=== PATIENT | female | born 1995 | race Caucasian/White ===

== ENCOUNTER 2020-08-16 14:03 | Emergency (ER) | payer MEDICAID, SELFPAY ==
--- NOTE | 2020-08-16 14:12 | ED_ITS ---
HPI - Chest Pain General Chief Complaint: Chest Pain Stated Complaint: Chest Pain, Covid + Time Seen by Provider: 08/16/20 14:12 Source: patient Mode of arrival: ambulatory Limitations: no limitations History of Present Illness HPI narrative: Patient has tested positive with COVID, now with cough and left sided chest pain complaint: chest pain Onset (ago): day(s) Prior episodes: No Onset: during rest Pain location: left chest Pain radiation: none Severity: mild Related Data On Oral Contraceptives: No Allergies Allergy/AdvReac Type Severity Reaction Status Date / Time Iodinated Contrast Media Allergy Unknown HIVES Unverified 07/01/20 17:54 [IV DYE, IODINE CONTAINING CONTRAST ] IV dye Allergy Unknown Uncoded 10/28/19 00:00 Review of Systems Constitutional: Constitutional: Reports no additional constitutional co mplaints Eyes: Eyes: Reports no additional eye complaints ENT: Denies dizziness Cardiovascular: Cardiovascular: Reports no additional cardiovascular complaints Respiratory: Respiratory: Reports as per HPI Gastrointestinal: Gastrointestinal: Reports no additional gastrointestinal complaints Genitourinary: Genitourinary: Reports no additional female genitourinary complaints Musculoskeletal: Musculoskeletal: Reports no additional musculoskeletal complaints Integumentary/Breasts: Skin/Breast: Denies rash Neurologic: Reports system reviewed and no additional complaints, except as documented, Denies dizziness and Denies Sensory deficit (Neuro) Psychiatric: Psychiatric: Denies anxiety [facility] Social History Social History Advance Directives: No Advance Directives Information Provided: Yes Physical Exam Const: General: healthy appearing Nutritional Appearance: average body habitus Orientation/consciousness: oriented to person and patient oriented x3 Limitations: no limitations HENMT: Head: Yes normal to inspection Ears: external ears normal General nose exam: Normal external nose present Mouth: Normal oral and palatal mucosa present and oropharynx normal Throat: Yes posterior oropharynx normal Eyes: General: appearance normal, both eyes and all related structures Neck: Other: supple Neck: Yes normal visual inspection Chest: Chest palpation & inspection: normal inspection of the chest Resp: Auscultation: clear to auscultation bilaterally Cardio: Jugular venous distension: no JVD Rate: regular rate Rhythm: regular rhythm Heart sounds: S1 normal heart sound present and S2 normal heart sound present GI: Inspection: Yes normal to inspection Palpation (GI): Soft to palpation, nontender and No hepatosplenomegaly present Auscultation: normal bowel sounds : General: Yes no CVA tenderness Back/Spine/Pelvis: Back: no CVA tenderness Skin: General skin exam: no rashes or lesions noted Neuro: General: oriented to person and patient oriented x3 Cranial nerves: Yes CN's II-XII intact bilaterally Motor exam (neuro): 5/5 motor strength present throughout Sensory Exam: No Sensory deficit (Neuro) Extrem: General: Yes normal to inspection Psych: Appearance: grossly normal Course Course Course Narrative: oxygen and vitals are prefect will check xray and EKG MDM - Chest Pain MDM Narrative Medical decision making narrative: Patient with Covid, EKG and xray are normal will dc home ECG Data ECG #1: Attestation: I personally reviewed and interpreted this ECG as follows: Interpretation: sinus 71, no st or twave changes Discharge Plan Discharge Clinical Impression: 2019 novel coronavirus disease (COVID-19) Patient Disposition: Home, Self-Care Instructions: COVID-19 (Coronavirus Disease 2019) (ED) Additional Instructions: return for worsening symptoms Referrals: Name,MD Omar [Primary Care Provider] - 2 days
--- NOTE | 2020-08-16 14:27 | ECG_ITS ---
Test Reason : CHEST PAIN Blood Pressure : / mmHG Vent. Rate : 071 BPM Atrial Rate : 071 BPM P-R Int : 148 ms QRS Dur : 076 ms QT Int : 388 ms P-R-T Axes : 031 006 023 degrees QTc Int : 421 ms Normal sinus rhythm Normal ECG No previous ECGs available Referred By: Mihir Arevalo Electronically Signed By:DOTTIE BILLINGSLEY MD
--- NOTE | 2020-08-16 14:28 | XR_ITS ---
EXAMINATION: XR CHEST CLINICAL INFORMATION: Cough. Covid positive. Chest pain. COMPARISON: Previous chest x-ray December 2017 TECHNIQUE: Frontal view of the chest was obtained. FINDINGS: No significant abnormality is noted involving the heart, lungs, mediastinum, bony thorax or soft tissues. XR/XR chest 1V IMPRESSION: Unremarkable examination.
--- NOTE | 2020-08-16 15:29 | PC.NURSE ---
patient seen and evaluated by provider. no distress. discharged post ekg and cxr. as per provider everthing looks good
== END 2020-08-16 15:29 | disposition home or self-care (01) ==
PROVIDERS: Emergency Provider Emergency Medicine; PCP Internal Medicine Geriatric Medicine
DX: U07.1 COVID-19 (principal); R05 Cough; R07.9 Chest pain, unspecified; Z20.828 Contact with and (suspected) exposure to other viral communicable diseases
CPT/HCPCS: 71045; 93005; 99282; 99283

== ENCOUNTER 2020-09-11 13:49 | Emergency (ER) | payer MEDICAID, SELFPAY ==
[2020-09-11 15:21] VITALS: BP 94/44; PULSE 79; RESP 18; TEMP 37.1; O2SAT 18; BMI 36.3
--- NOTE | 2020-09-11 15:50 | ED_ITS ---
HPI - General Adult General Chief complaint: Skin/Abscess/Foreign Body Stated complaint: CHEST DISCOMFORT Time Seen by Provider: 09/11/20 15:43 Source: patient Mode of arrival: ambulatory Limitations: no limitations History of Present Illness HPI narrative: 25 y/o female with history of anemia presenting with breast discomfort for the last one month. She describes it as chest pain that is burning and itchy. She states it is worse on the left side and around her nipples. She has been unable to get in with her PCP. She has a control implant in her arm so she has not gotten her menses in 6 months. She denies change of . She denies trauma. She denies SOB, difficulty breathing, rash, nipple discharge. MD complaint: breast pain Onset (ago): month(s) (1) Location: chest Radiation: back Severity: moderate Quality: burning Pain Consistency: constant Relieving factors: none Exacerbating factors: none Associated symptoms: denies other symptoms Treatments prior to arrival: none Related Data Previous Rx's Medication Instructions Recorded hydrocortisone 1 appl TOPICAL QID PRN #30 g 09/11/20 Allergies Allergy/AdvReac Type Severity Reaction Status Date / Time Iodinated Contrast Media Allergy Unknown HIVES Verified 09/11/20 15:20 [IV DYE, IODINE CONTAINING CONTRAST ] Review of Systems Review of Systems: Constitutional: No Fever, No Chills ENT/Mouth: No sore throat, No Rhinorrhea Eyes: No Eye Pain, No Swelling, No Redness Cardiovascular: + Chest Pain, No SOB Respiratory: No Cough, No Sputum, No Wheezing, No dyspnea Gastrointestinal: No Nausea, No Vomiting, No Diarrhea, No abdominal Pain Genitourinary: No Dysuria, No Urinary Frequency, No vaginal discharge Musculoskeletal: No joint pain, No Myalgias Skin: No Skin Lesions, No rash Neuro:No Headache Heme/Lymph: No Bruising, No Lymphadenopathy Endocrine: No Polyuria, No Polydipsia PMFSH Past Medical History Attestation statement: The following information was validated with the patient. Medical History Anemia Social History Social History Smoking Status: Never smoker Use of substances other than those prescribed or required for medical reasons: No Advance Directives: No Advance Directives Information Provided: Yes Physical Exam Vital Signs: Vital Signs: Last Vital Signs Temp 98.7 F 09/11/20 15:21 Pulse 79 09/11/20 15:21 Resp 18 09/11/20 15:21 BP 94/44 L 09/11/20 15:21 Pulse Ox 18 L 09/11/20 15:21 Body Mass Index 36.3 Appearance: Alert. Oriented X3. No acute distress. HEENT: normal inspection CVS: Normal heart rate and rhythm. Pulses normal. Respiratory: No respiratory distress. Breath sounds clear bilterally Chest wall: breast tenderness throughout with mild lower rib tenderness laterally. no skin changes, no palpable mass or lump, no nipple discharge, no nipple inversion Skin: Skin warm and dry. Normal skin color. Normal skin turgor. No rashes. Extremities: atraumatic, left upper extremity with palpable linear implant in upper arm Neuro: Oriented X 3. Course Course Course Narrative: 25 y/o female with breast pain - described as burning and itching. Unclear etiology. Will check a test. Reevaluation(s) Reevaluation #1: test negative. No concerning mass or skin changes appreciated on exam. Will prescribe topical steroid for itching and refer to [facility] for further evalution. Stable for d/c. Medical Decision Making Lab Data Labs: Lab Results 09/11/20 Range/Units 15:59 Urine Test NEGATIVE (NEGATIVE) Critical Care Time Critical Care Time Critical Care Time: No Discharge Plan Discharge Clinical Impression: Breast pain Patient Disposition: Home, Self-Care Instructions: Breast Self Exam for Women (ED), Itchy Skin (ED) Additional Instructions: The cause of your symptoms is unclear. You exam did not show any concerning lesions, masses or rashes. Take Tylenol and/or Motrin as needed for discomfort. You will need to follow up with [facility] for further evaluation. Try topical prescribed hydrocortisone for itching or over the counter benadryl. Avoid very hot showers. Keep the skin moisturized with a hypoallergenic lotion. Follow up with your doctor next week. Prescriptions: New hydrocortisone 2.5 % cream 1 appl topical QID PRN (Reason: itching) Qty: 30 RF: 0 Referrals: Fernando Quach MD [Physician] - 2 days (breast pain)
[2020-09-11 16:09] LABS: UPreg QC Valid YES; Urine Pregnancy NEGATIVE (NEGATIVE)
== END 2020-09-11 16:34 | disposition home or self-care (01) ==
PROVIDERS: Physician Assistant; Emergency Provider Internal Medicine; PCP Internal Medicine Geriatric Medicine
DX: N64.4 Mastodynia (principal); R07.81 Pleurodynia; Z79.899 Other long term (current) drug therapy
CPT/HCPCS: 81025; 99283; 99284

== ENCOUNTER 2020-10-18 17:15 | Emergency (ER) | payer MEDICAID, SELFPAY ==
[2020-10-18 19:28] VITALS: BP 106/59; PULSE 70; RESP 15; TEMP 37; O2SAT 100; BMI 36.6
--- NOTE | 2020-10-18 19:47 | ED_ITS ---
HPI - URI/Sore Throat General Chief Complaint: Headache Stated Complaint: Covid Symptoms Time Seen by Provider: 10/18/20 19:47 Source: patient Mode of arrival: ambulatory Limitations: no limitations History of Present Illness HPI Narrative: Bodies, rhinorrhea, chills and has been exposed to people with COVID-19. Denies any chest pain shortness of breath. MD elicited complaint: rhinorrhea and nasal congestion Onset (ago): day(s) (2 days ) Severity: mild Associated symptoms: chills, nasal congestion and diarrhea Related Data Previous Rx's Medication Instructions Recorded hydrocortisone 1 appl TOPICAL QID PRN #30 g 09/11/20 Allergies Allergy/AdvReac Type Severity Reaction Status Date / Time Iodinated Contrast Media Allergy Unknown HIVES Verified 09/11/20 15:20 [IV DYE, IODINE CONTAINING CONTRAST ] Review of Systems Review of Systems: Constitutional: No Weight loss, No Fever, + Chills, No Night Sweats, No Fatigue, No Malaise ENT/Mouth: No Hearing loss, No Ear Pain, No Sinus Pain, No Hoarseness, No sore throat, No Swallowing Difficulty Eyes: No Eye Pain, No Swelling, No Redness, No Foreign Body, No Discharge, No Vision Changes Cardiovascular: No Chest Pain, No SOB, No Dyspnea on Exertion, No Orthopnea, No Edema, No Palpitations Respiratory: No Cough, No Sputum, No Wheezing, No Smoke Exposure, No Dyspnea Gastrointestinal: No Nausea, No Vomiting, + Diarrhea, No Constipation, No abdominal Pain, No Hematochezia, No Melena Genitourinary: no irregular bleeding, No Dysuria, No Urinary Frequency, No H ematuria, No Urinary Incontinence, No Urgency, No Flank Pain Musculoskeletal: No joint pain, No Myalgias, No Joint Swelling Skin: No Skin Lesions, No rash Neuro: No Weakness, No Numbness, No Paresthesias, No Loss of Consciousness, No Dizziness, No Headache Psych: No Social Issues Heme/Lymph: No Bruising, No Bleeding,No Lymphadenopathy Endocrine: No Polyuria, No Polydipsia, No Temperature Intolerance Yes all other systems are reviewed and are negative [facility] Past Medical History Medical History Anemia Social History Social History Alcohol intake: never Smoking Status: Never smoker Use of substances other than those prescribed or required for medical reasons: No Advance Directives: No Advance Directives Information Provided: No Physical Exam Vital Signs: Vital Signs: Last Vital Signs Temp 98.6 F 10/18/20 19:28 Pulse 70 10/18/20 19:28 Resp 15 10/18/20 19:28 BP 106/59 L 10/18/20 19:28 Pulse Ox 100 10/18/20 19:28 Body Mass Index 36.6 Reviewed Const: General: cooperative and healthy appearing; No acute distress or intoxicated appearing Nutritional Appearance: average body habitus Orientation/consciousness: patient oriented x3 HENMT: Head: Yes normal to inspection Ears: hearing grossly normal bilaterally Eyes: General: appearance normal, both eyes and all related structures Visual Hubbard: normal visual hubbard by confrontation Neck: Neck: Yes normal visual inspection, No positive Brudzinski's sign, No positive Kernig's sign and No tender Thyroid: Thyroid normal Chest: Chest palpation & inspection: normal inspection of the chest Resp: Effort & Inspection: normal respiratory effort Auscultation: clear to auscultation bilaterally Cardio: Jugular venous distension: no JVD Rhythm: regular rhythm Heart sounds: S1 normal heart sound present and S2 normal heart sound present GI: Inspection: Yes normal to inspection Palpation (GI): Soft to palpation Percussion: Yes normal to percussion Auscultation: normal bowel sounds : General: Yes no CVA tenderness Back/Spine/Pelvis: Back: no CVA tenderness Skin: General skin exam: no rashes or lesions noted Neuro: General: patient oriented x3 Extrem: General: Yes normal to inspection MDM - URI/Sore Throat MDM Narrative Medical decision making narrative: Well nontoxic appearing. COVID PCR done will discharge home with clear precaution return follow-up instructions. Will quarantine for 14 days given the symptoms been 2 days and she has been exposed to someone with COVID-19. Medical Records Attestation: I reviewed the patient's medical records. Lab Data Attestation: I reviewed the patient's lab results. Discharge Plan Discharge Clinical Impression: Acute upper respiratory infection Patient Disposition: Home, Self-Care Instructions: Viral Syndrome (ED) Additional Instructions: Your symptoms that you are having are likely claim representative of COVID-19. Given your exposure we have done a COVID-19 test. Based on your symptoms and history we have sent a COVID-19. Although your RESULT IS PENDING at this time. RESULTS should return within 72 hours. At this time you will be contacted with either NEGATIVE OR POSITIVE results. -Please wait until we contact you for your results. At this time you will be okay for discharge. Please plan for self quarantine for up to 14 days. Do not expose yourself to others. Please continue to follow cold instructions and wash your hands frequently. You may take Tylenol as directed on the bottle for pain or fever. Patient seen in the emergency department and should be excused from work until negative test results AND until 72 hours without any symptoms AND at least 10 days have passed since symptoms first appeared or since last exposure to COVID- 19 positive patient CDC Guidelines for home isolation: - Stay away from others - WEAR A MASK if you are sick AND STAY HOME - Cover your mouth and nose with a tissue when you cough or sneeze. Dispose of tissues in a lined trash can and wash your hands immediately with soap and water for at least 20 seconds. If soap and water are not available, clean hands with alcohol-based hand pharmaceutical salesperson that contains at least 60% alcohol. - Clean your hands often with soap and water for at least 20 seconds - Avoid touching your eyes, nose and mouth with unwashed hands - Do not share dishes, drinking glasses, cups, eating utensils, towels, or bedding with other people in your home. After using these items, wash them thoroughly with soap and water or put in the sail maker. - Clean high-touch surfaces in your isolation area ( sick room and bathroom) every day; let a caregiver clean and disinfect high-touch surfaces in other areas of the home. Clean the area or item with soap and water or another detergent if it is dirty. Then, use a household disinfectant. - Limit contact with pets and animals: If you must care for a pet, wash your hands before and after interacting with them Prescriptions: No Action hydrocortisone 2.5 % cream 1 appl topical QID PRN (Reason: itching) Qty: 30 RF: 0 Referrals: Physician,Unknown [Primary Care Provider] - 2 weeks Stand Alone Forms: Work/School Release
== END 2020-10-18 20:27 | disposition home or self-care (01) ==
PROVIDERS: Nurse Practitioner Primary Care; Emergency Provider Emergency Medicine
DX: J06.9 Acute upper respiratory infection, unspecified (principal); Z20.828 Contact with and (suspected) exposure to other viral communicable diseases
CPT/HCPCS: 36415; 99283; 99284; U0003

== ENCOUNTER 2020-12-12 18:11 | Emergency (ER) | payer MEDICAID, SELFPAY ==
--- NOTE | ~2020-12-12 | XR_ITS ---
EXAMINATION: XR RIGHT KNEE: 2 VIEWS XR RIGHT ANKLE: 3 VIEWS CLINICAL INFORMATION: Pain COMPARISON: None TECHNIQUE: AP and lateral views of the right knee AP, oblique and lateral views of the right ankle XR/XR knee RT 2V FINDINGS / IMPRESSION: KNEE: No acute fracture or dislocation. Joint spaces and articular surfaces are maintained. No joint effusion. Soft tissues unremarkable. ANKLE: No acute fracture or dislocation. Ankle mortise is congruent. Talar dome intact. No ankle joint effusion. Mild soft tissue swelling lateral to the ankle.
--- NOTE | ~2020-12-12 | XR_ITS ---
EXAMINATION: XR RIGHT KNEE: 2 VIEWS XR RIGHT ANKLE: 3 VIEWS CLINICAL INFORMATION: Pain COMPARISON: None TECHNIQUE: AP and lateral views of the right knee AP, oblique and lateral views of the right ankle XR/XR ankle RT 2V FINDINGS / IMPRESSION: KNEE: No acute fracture or dislocation. Joint spaces and articular surfaces are maintained. No joint effusion. Soft tissues unremarkable. ANKLE: No acute fracture or dislocation. Ankle mortise is congruent. Talar dome intact. No ankle joint effusion. Mild soft tissue swelling lateral to the ankle.
[2020-12-12 18:14] VITALS: BP 112/60; PULSE 89; RESP 16; TEMP 36.4; O2SAT 99; BMI 36.6
--- NOTE | 2020-12-12 19:38 | ED_ITS ---
HPI - Extremity Injury (Lower) General Chief Complaint: Extremity Injury, Lower Stated Complaint: Knee pain Time Seen by Provider: 12/12/20 19:09 Source: patient Limitations: no limitations History of Present Illness HPI Narrative: 25-year-old female with no significant past medical history presenting to the emergency department with right lower extremity injury. Patient states she was helping her friend move furniture when she missed a step and twisted her right ankle. She states she also heard a crunch in her right knee and was concerned about that but does not have significant pain to her knee. She states she has been unable to walk due to the pain in her ankle. She denies other injuries. She states she feels like her leg is getting swollen now. She denies symptoms previous to the injury. Related Data Previous Rx's Medication Instructions Recorded hydrocortisone 1 appl TOPICAL QID PRN #30 g 09/11/20 ibuprofen 600 mg PO Q6H PRN 5 Days #20 tab 12/12/20 Allergies Allergy/AdvReac Type Severity Reaction Status Date / Time Iodinated Contrast Media Allergy Unknown HIVES Verified 09/11/20 15:20 [IV DYE, IODINE CONTAINING CONTRAST ] Review of Systems Constitutional: Constitutional: Denies fever(s) Eyes: Eyes: Reports no additional eye complaints ENT: Denies dizziness Comments: no oral injury Cardiovascular: Cardiovascular: Denies chest pain, Denies syncope and Denies dyspnea Respiratory: Respiratory: Denies dyspnea Gastrointestinal: Gastrointestinal: Denies abdominal pain Musculoskeletal: Comments: right lower extremity pain Neurologic: Denies dizziness and Denies syncope Hematologic/Lymphatic: Hematologic/Lymphatic: Denies easy bleeding PMFSH Past Medical History Medical History Anemia Social History Social History Alcohol intake: never Smoking Status: Never smoker Smoked in Last 30 Days: No Use of substances other than those prescribed or required for medical reasons: No Any prior treatment program specific to substance use: No Advance Directives: No Advance Directives Information Provided: Yes Physical Exam Vital Signs: Vital Signs: Last Vital Signs Temp 97.5 F 12/12/20 18:14 Pulse 89 12/12/20 18:14 Resp 16 12/12/20 18:14 BP 112/60 12/12/20 18:14 Pulse Ox 99 12/12/20 18:14 Body Mass Index 36.6 Const: Other: sitting upright texting on cell phone Orientation/consciousness: patient oriented x3 HENMT: Head: Yes atraumatic Eyes: Pupils: Equal, round and reactive pupils present Neck: Neck: Yes trachea midline and Yes supple Chest: Other: Atraumatic Resp: Effort & Inspection: normal respiratory effort and able to speak in complete sentences Cardio: Rate: regular rate GI: Inspection: No distended Skin: Other: Warm, dry, no lacerations or abrasions Neuro: General: patient oriented x3 Cranial nerves: Yes Equal, round and reactive pupils present Extrem: Other: Right lower extremity-positive palpable pulses, full range of motion of digits, able to dorsiflex and plantar flex however limited due to pain, swelling to the lateral malleolus, tenderness to the lateral malleolus, no calf tenderness, able to flex 90 degrees at the knee, no ecchymosis, no swelling, able to fully extend, limbs are symmetrical in size in the compartment soft, neurovascularly intact Psych: Appearance: well kempt MDM - Extremity Injury (Lower) MDM Narrative Medical decision making narrative: 25-year-old female presenting to emergency department after an injury to her right lower extremity Vital stable, nontoxic appearing, hemodynamically stable Patient had x-rays performed and triage prior to my assessment which was negative for an acute fracture of her knee or ankle. She does have some swelling to her lateral malleolus which is noted. She has palpable pulses therefore tibial injury is less likely. No concern for DVT given her limbs are symmetrical in size and patient have pain prior to the injury. Compartments are soft. She is neurovascularly intact. No lacerations or foreign bodies. Most likely due to musculoskeletal injury vs. Sprain. Will give her an air splint and crutches for her ankle. I discussed elevation and NSAIDs for her pain. She currently has a Nexplanon the is less likely, negative for Tylenol and Motrin for her pain prior to discharge. Discharge Plan Discharge Clinical Impression: Ankle sprain, Knee pain, Fall Patient Disposition: Home, Self-Care Instructions: Ankle Sprain (ED), R.I.C.E. Treatment (ED) Additional Instructions: Your seen in the emergency department after a fall. Your x-ray to your knee was normal. Your x-ray of your right ankle shows you have some swelling. Please return to the emergency department for symptoms worsen, worsening swelling, pain, difficulty walking, numbness, tingling, weakness. Elevate your leg and placed ice to your ankle to help with the swelling. Use crutches for weight- bearing as tolerated. When you are walking around please use the air splint, when you are home he may remove and elevate your leg. Periodically range your foot up and down. If your symptoms continue past 1 week we encourage you to see the orthopedist, information provided. Prescriptions: New ibuprofen 600 mg tablet 600 mg PO Q6H PRN (Reason: pain) 5 Days Qty: 20 RF: 0 No Action hydrocortisone 2.5 % cream 1 appl topical QID PRN (Reason: itching) Qty: 30 RF: 0 Referrals: Charli Bello MD [Physician] - 1 week (if symptoms do not improve )
[2020-12-12] MEDS: Acetaminophen 325 MG TABLET 650 MG PO (20:15)
[2020-12-12] MEDS: Ibuprofen 600 MG TABLET PO (20:16)
== END 2020-12-12 20:23 | disposition home or self-care (01) ==
PROVIDERS: Emergency Provider Internal Medicine
DX: S93.401A Sprain of unspecified ligament of right ankle, initial encounter (principal); M25.561 Pain in right knee; X50.1XXA Overexertion from prolonged static or awkward postures, initial encounter; Y93.01 Activity, walking, marching and hiking; Y92.9 Unspecified place or not applicable; Y99.9 Unspecified external cause status; M25.571 Pain in right ankle and joints of right foot
CPT/HCPCS: 29515; 73560; 73600; 99284

== ENCOUNTER 2021-03-16 12:01 | Emergency (ER) | payer MEDICAID, SELFPAY ==
--- NOTE | ~2021-03-16 | US_ITS ---
EXAMINATION: US OBSTETRICAL ULTRASOUND CLINICAL INFORMATION: Early . Pelvic pain. COMPARISON: None. LMP: 02/07/2021. Gestational age by maternal dates is 5 weeks 2 days. Estimated date of delivery by maternal dates is 11/14/2021. TECHNIQUE: Ultrasound of the maternal pelvis is performed using transabdominal and transvaginal transducers. Transvaginal imaging is performed due to inadequate visualization transabdominally. M-mode Doppler is also performed. FINDINGS: The uterus measures 10.5 x 4.5 x 6.0 cm. There is a tiny cystic focus in the endometrium with questionable surrounding decidual reaction, average dimension only 0.4 cm (4 weeks 6 day size). No visible embryo or yolk sac. No fluid in uterine cavity. MATERNAL ADNEXA: The right maternal ovary is not visualized. The left ovary measures 1.9 x 1.0 x 1.3 cm. No maternal adnexal mass or pelvic ascites. US/US OB pelvic and transvaginal IMPRESSION: 1. Question early intrauterine gestational sac under 5 mm. 2. No maternal adnexal mass or pelvic ascites. Right maternal ovary not visualized. 3. Recommend follow-up beta hCG and follow-up ultrasound to confirm developing intrauterine .
[2021-03-16 13:23] VITALS: BP 127/68; PULSE 77; RESP 16; TEMP 36.8; O2SAT 100; BMI 35.3
[2021-03-16 14:00] LABS: MANUAL DIFF FLAG NO
[2021-03-16 14:05] LABS: Basophils Percent Auto 0.5 % (0-2); Eosinophils Absolute Auto 0.7 X10*3/uL (0.0-0.4); Eosinophils Percent Auto 8.1 % (0-4); Hematocrit 37.9 % (37-47); Hemoglobin 12.4 g/dl (12.0-16.0); Imm Gran Abs Auto 0.02 X10*3/uL (0.00-0.03); Imm Gran Pct Auto 0.2 % (0.0-0.4); Lymphocytes Absolute Auto 3.1 X10*3/uL (1.2-4.9); Lymphocytes Percent Auto 36.3 % (20-40); Mean Corpuscular HGB Conc 32.7 g/dl (31.0-35.0); Mean Corpuscular Volume 82.4 fL (80-98); Mean Platelet Volume 11.3 fL (9.4-12.3); Monocytes Absolute Auto 0.6 X10*3/uL (0.1-1.2); Monocytes Percent Auto 7.1 % (2-11); Neutrophils Percent Auto 47.8 % (45-73); Platelet Count 243 X10*3/uL (160-400); Red Cell Distribution Width 12.6 % (11.0-16.0); White Blood Count 8.4 X10*3/uL (4.8-10.8)
[2021-03-16 14:06] LABS: Glucose Urine UA NEG (NEG); Leukocyte Esterase Urine NEG (NEG); Nitrite Urine NEG (NEG); Specific Gravity - Urine 1.015 (1.005-1.025); Urine Blood NEG (NEG); Urine Ketones NEG (NEG); Urine Protein NEG (NEG-TRACE)
[2021-03-16 14:07] LABS: Appearance Urine HAZY; Color Urine YELLOW
[2021-03-16 14:29] LABS: Anion Gap 10 (12-20); Blood Urea Nitrogen 6 mg/dL (9-16); Calcium 9.1 mg/dL (8.4-10.2); Carbon Dioxide 26 mmol/L (22-29); Chloride 104 mmol/L (96-108); Creatinine Clr Calc Pharmacy 126.5; Estimated Glomerular Filt Rate > 60; Glucose Random 75 mg/dL (60-115); Potassium 3.8 mmol/L (3.3-5.1); Sodium 136 mmol/L (135-145)
[2021-03-16 15:06] LABS: UPreg QC Valid YES; Urine Pregnancy POSITIVE (NEGATIVE)
--- NOTE | 2021-03-16 15:50 | ED_ITS ---
HPI - Abdominal Pain General Chief Complaint: Abdominal Pain Stated Complaint: abd pain Time Seen by Provider: 03/16/21 15:38 Source: patient Mode of arrival: ambulatory Limitations: no limitations History of Present Illness HPI narrative: 25 y/o female presenting with lower abdominal pain that started yesterday along with some mild nausea. She states he pain was tolerabel yesterday but increased today. Worse with walking and with movement, sharp in nature and along her entire lower abdomen. No diarrhea, fevers, vaginal discharge or vaginal bleeding. LMP 02/07 and per her Period Paul on her phone she is due for her menses on 03/20. MD elicited complaint: abdominal pain Pertinent past history: none Onset (ago): day(s) (1) Pain Consistency: constant Location: RLQ and LLQ Severity: moderate Pain scale (0-10): 6 Quality: stabbing Radiation: none Migration to: no migration Exacerbating factors: movement Relieving factors: nothing Associated symptoms: nausea Related Data Date of Last Menstrual Period: 02/07/21 Hx Last Menstrual Period: usually 3-4 days in duration and period cycles 30+ days Previous Rx's Medication Instructions Recorded hydrocortisone 1 appl TOPICAL QID PRN #30 g 09/11/20 ibuprofen 600 mg PO Q6H PRN 5 Days #20 tab 12/12/20 Allergies Allergy/AdvReac Type Severity Reaction Status Date / Time Iodinated Contrast Media Allergy Unknown HIVES Verified 03/16/21 13:28 [IV DYE, IODINE CONTAINING CONTRAST ] Review of Systems Review of Systems Constitutional: No Fever, No Chills ENT/Mouth: No sore throat, No Rhinorrhea, No Swallowing Difficulty Eyes: No Eye Pain, No Swelling, No Redness Cardiovascular: No Chest Pain, No SOB, No Orthopnea, No Edema Respiratory: No Cough, No Sputum, No Wheezing, No dyspnea Gastrointestinal: + Nausea, No Vomiting, No Diarrhea, + abdominal Pain, No Hematochezia, No Melena Genitourinary: No Dysuria, No Urinary Frequency, No Hematuria, No vaginal bleeding, No vaginal discharge Musculoskeletal: No joint pain, No Myalgias Skin: No Skin Lesions, No rash Neuro: No Weakness, No Numbness, No Dizziness, No Headache Psych: No Anxiety/Panic, No Depression Heme/Lymph: No Bruising, No Lymphadenopathy Endocrine: No Polyuria, No Polydipsia Physical Exam Vital Signs: Vital Signs: Last Vital Signs Temp 98.3 F 03/16/21 13:23 Pulse 70 03/16/21 15:52 Resp 16 03/16/21 15:52 BP 102/56 L 03/16/21 15:52 Pulse Ox 100 03/16/21 15:52 Body Mass Index 35.3 Appearance: Alert. Oriented X3. No acute distress. Eyes: Pupils equal, round and reactive to light. ENT: Pharynx normal. Neck: Normal inspection. Neck supple. CVS: Normal heart rate and rhythm. Pulses normal. Respiratory: No respiratory distress. Breath sounds normal. Abdomen: Soft with diffuse tenderness to lower abdomen with rebound, no guarding. +BS x4. Pelvic exam deferred. Skin: Skin warm and dry. Normal skin color. Normal skin turgor. No rashes. Extremities: No lower extremity edema. Neuro: Oriented X 3. No motor deficit. No sensory deficit. Course Course Course Narrative: 25 y/o female presenting wtih lower abdominal pain and nausea x1 day. Given LMP concern she is . Will get labs, Upreg. Reports history of ovarian cysts and thinks that is what is causing her pain. She deferred pelvic exam. Agreeable to U/S. Reevaluation(s) Reevaluation #1: UA negative for infection, positive for . Patient told about results and is very surprised. She continues to deny bleeding. Will get pelvic U/S to look for IUP vs possible ectopic. Reevaluation #2: Pelvic U/S showing possible tiny 5mm IUP, about 4 weeks 6 days. HCG is consistent with this with an HCG of 3493. She continues to deny any vaginal bleeding. Abdominal pain is ok. No vomiting, diarrhea or fevers. She saw midwives here for her 2 prior pregnancies and plans to follow up with them. We discussed the importance of f/u HCG and trending it. She will call [facility] [employer] here tomorrow for follow up blood work to be done on Sunday. Patient advised to come back to the ER if her pain worsens or if she develops vaginal bleeding. MDM - Abdominal Pain Lab Data Result diagrams: 03/16/21 13:44 03/16/21 13:44 Labs: Lab Results 03/16/21 03/16/21 03/16/21 Range/Units 13:44 13:44 13:44 WBC 8.4 (4.8-10.8) X10*3/uL RBC 4.60 (4.20-5.50) X10*6/uL Hgb 12.4 (12.0-16.0) g/dl Hct 37.9 (37-47) % MCV 82.4 (80-98) fL MCH 27.0 (27.0-33.0) pg MCHC 32.7 (31.0-35.0) g/dl RDW 12.6 (11.0-16.0) % Plt Count 243 (160-400) X10*3/uL MPV 11.3 (9.4-12.3) fL Immature Gran % (Auto) 0.2 (0.0-0.4) % Neut % (Auto) 47.8 (45-73) % Lymph % (Auto) 36.3 (20-40) % [place] % (Auto) 7.1 (2-11) % Eos % (Auto) 8.1 H (0-4) % Baso % (Auto) 0.5 (0-2) % Lymph # (Auto) 3.1 (1.2-4.9) X10*3/uL [place] # (Auto) 0.6 (0.1-1.2) X10*3/uL Eos # (Auto) 0.7 H (0.0-0.4) X10*3/uL Baso # (Auto) 0.0 (0.0-0.2) X10*3/uL Abs Immat Gran (auto) 0.02 (0.00-0.03) X10*3/uL Absolute Neuts (auto) 4.0 (2.0-8.3) X10*3/uL Absolute Nucleated RBC 0.000 (0.0-0.012) X10*3/uL Nucleated RBC % (auto) 0.0 (0.0-0.2) /100WBC Sodium 136 (135-145) mmol/L Potassium 3.8 (3.3-5.1) mmol/L Chloride 104 (96-108) mmol/L Carbon Dioxide 26 (22-29) mmol/L Anion Gap 10 L (12-20) BUN 6 L (9-16) mg/dL Creatinine 0.74 (0.5-1.4) mg/dL Estim Creat Clear Calc 126.5 Estimated GFR > 60 Random Glucose 75 (60-115) mg/dL Calcium 9.1 (8.4-10.2) mg/dL Beta HCG, Quant 3493 mIU/mL Urine Color YELLOW Urine Appearance HAZY Urine pH 7.0 (5.0-8.0) Ur Specific [place] 1.015 (1.005-1.025) Urine Protein NEG (NEG-TRACE) MG/DL Urine Glucose (UA) NEG (NEG) MG/DL Urine Ketones NEG (NEG) MG/DL Urine Blood NEG (NEG) Urine Nitrite NEG (NEG) Ur Leukocyte Esterase NEG (NEG) Urine Test (NEGATIVE) 03/16/21 Range/Units 13:44 WBC (4.8-10.8) X10*3/uL RBC (4.20-5.50) X10*6/uL Hgb (12.0-16.0) g/dl Hct (37-47) % MCV (80-98) fL MCH (27.0-33.0) pg MCHC (31.0-35.0) g/dl RDW (11.0-16.0) % Plt Count (160-400) X10*3/uL MPV (9.4-12.3) fL Immature Gran % (Auto) (0.0-0.4) % Neut % (Auto) (45-73) % Lymph % (Auto) (20-40) % [place] % (Auto) (2-11) % Eos % (Auto) (0-4) % Baso % (Auto) (0-2) % Lymph # (Auto) (1.2-4.9) X10*3/uL [place] # (Auto) (0.1-1.2) X10*3/uL Eos # (Auto) (0.0-0.4) X10*3/uL Baso # (Auto) (0.0-0.2) X10*3/uL Abs Immat Gran (auto) (0.00-0.03) X10*3/uL Absolute Neuts (auto) (2.0-8.3) X10*3/uL Absolute Nucleated RBC (0.0-0.012) X10*3/uL Nucleated RBC % (auto) (0.0-0.2) /100WBC Sodium (135-145) mmol/L Potassium (3.3-5.1) mmol/L Chloride (96-108) mmol/L Carbon Dioxide (22-29) mmol/L Anion Gap (12-20) BUN (9-16) mg/dL Creatinine (0.5-1.4) mg/dL Estim Creat Clear Calc Estimated GFR Random Glucose (60-115) mg/dL Calcium (8.4-10.2) mg/dL Beta HCG, Quant mIU/mL Urine Color Urine Appearance Urine pH (5.0-8.0) Ur Specific [place] (1.005-1.025) Urine Protein (NEG-TRACE) MG/DL Urine Glucose (UA) (NEG) MG/DL Urine Ketones (NEG) MG/DL Urine Blood (NEG) Urine Nitrite (NEG) Ur Leukocyte Esterase (NEG) Urine Test POSITIVE H (NEGATIVE) Discharge Plan Discharge Clinical Impression: Qualifiers: Weeks of gestation: less than 8 weeks Qualified Code(s): Z3A.01 - Less than 8 weeks gestation of Patient Disposition: Home, Self-Care Instructions: (ED) Additional Instructions: Your blood and urine tests showed you are . Ultrasound showed a possible tiny gestational sac in the uterus but it is very early in the to be positive. You need to follow up with your [facility] [employer] [facility] here for repeat lab work and ultrasound. Start taking vitamins. If you develop worsening pain or vaginal bleeding come back to the ER for further evaluation. Prescriptions: No Action hydrocortisone 2.5 % cream 1 appl topical QID PRN (Reason: itching) Qty: 30 RF: 0 ibuprofen 600 mg tablet 600 mg PO Q6H PRN (Reason: pain) 5 Days Qty: 20 RF: 0 Referrals: Gissell Brady MD [Physician] - 2 days (lower abdominal pain, HCG 3400, ?IUP on U/S. no bleeding. ) [facility] Past Medical History Medical History Anemia Date of Last Menstrual Period: 02/07/21 Hx Last Menstrual Period: usually 3-4 days in duration and period cycles 30+ days Social History Social History Alcohol intake: never Patient Tobacco Use Status: Never used Tobacco Use of substances other than those prescribed or required for medical reasons: No Advance Directives: Yes Advance Directives Information Provided: Yes Advance Directives on File: No Patient : No
[2021-03-16 15:52] VITALS: BP 102/56; PULSE 70; RESP 16; O2SAT 100
[2021-03-16 16:12] LABS: HCG Quantitative 3493 mIU/mL
== END 2021-03-16 17:34 | disposition home or self-care (01) ==
PROVIDERS: Physician Assistant; Emergency Provider Emergency Medicine
DX: R10.30 Lower abdominal pain, unspecified (principal); R11.0 Nausea; Z32.01 Encounter for pregnancy test, result positive
CPT/HCPCS: 36415; 76801; 76817; 80048; 81003; 81025; 84702; 85025; 86850; 86900; 86901; 99284

== ENCOUNTER → 2021-03-18 13:26 | Outpatient (BNVA) | payer MEDICAID, SELFPAY | PROVIDERS: Visit Provider Advanced Practice Midwife | DX: Z32.01 Encounter for pregnancy test, result positive (principal) | CPT/HCPCS: 99212 ==

== ENCOUNTER 2021-03-25 16:43 | Emergency (ER) | payer MEDICAID, SELFPAY ==
[2021-03-25 18:02] VITALS: BP 101/63; PULSE 71; RESP 18; TEMP 37.1; O2SAT 96; BMI 34.8
[2021-03-25 18:47] LABS: MANUAL DIFF FLAG NO
[2021-03-25 18:48] LABS: Basophils Percent Auto 0.4 % (0-2); Eosinophils Absolute Auto 0.3 X10*3/uL (0.0-0.4); Eosinophils Percent Auto 3.2 % (0-4); Hematocrit 40.3 % (37-47); Hemoglobin 13.1 g/dl (12.0-16.0); Imm Gran Abs Auto 0.01 X10*3/uL (0.00-0.03); Imm Gran Pct Auto 0.1 % (0.0-0.4); Lymphocytes Absolute Auto 2.8 X10*3/uL (1.2-4.9); Lymphocytes Percent Auto 33.1 % (20-40); Mean Corpuscular HGB Conc 32.5 g/dl (31.0-35.0); Mean Corpuscular Hemoglobin 26.7 pg (27.0-33.0); Mean Corpuscular Volume 82.2 fL (80-98); Mean Platelet Volume 11.3 fL (9.4-12.3); Monocytes Absolute Auto 0.4 X10*3/uL (0.1-1.2); Monocytes Percent Auto 5.1 % (2-11); Neutrophils Percent Auto 58.1 % (45-73); Platelet Count 223 X10*3/uL (160-400); Red Cell Distribution Width 12.7 % (11.0-16.0); White Blood Count 8.6 X10*3/uL (4.8-10.8)
[2021-03-25 18:50] LABS: UPreg QC Valid YES; Urine Pregnancy POSITIVE (NEGATIVE)
[2021-03-25 19:11] LABS: Anion Gap 11 (12-20); Blood Urea Nitrogen 9 mg/dL (9-16); Calcium 9.1 mg/dL (8.4-10.2); Carbon Dioxide 24 mmol/L (22-29); Chloride 104 mmol/L (96-108); Creatinine Clr Calc Pharmacy 120.6; Estimated Glomerular Filt Rate > 60; Glucose Random 85 mg/dL (60-115); Potassium 3.8 mmol/L (3.3-5.1); Sodium 135 mmol/L (135-145)
[2021-03-25 19:54] VITALS: BP 101/63; PULSE 71; RESP 18; TEMP 37.1; O2SAT 96
[2021-03-25 20:00] VITALS: BP 101/63; PULSE 71; RESP 18; TEMP 37.1; O2SAT 96
[2021-03-25 20:16] LABS: Glucose Urine UA NEG (NEG); Leukocyte Esterase Urine NEG (NEG); Nitrite Urine NEG (NEG); Specific Gravity - Urine >= 1.030 (1.005-1.025); Urine Blood NEG (NEG); Urine Ketones 15 MG/DL (NEG); Urine Protein NEG (NEG-TRACE)
[2021-03-25 20:17] LABS: Appearance Urine HAZY; Color Urine YELLOW
[2021-03-25 20:26] LABS: Alanine Aminotransferase 30 U/L (0-31); Albumin Level 4.2 g/dL (3.5-5.0); Alkaline Phosphatase 90 U/L (39-117); Aspartate Amino Transferase 23 U/L (5-31); Bilirubin Direct < 0.2 mg/dL (0.0-0.5); Bilirubin Total 0.3 mg/dL (0.0-1.0); Total Protein 7.1 g/dL (6.5-8.0)
--- NOTE | 2021-03-25 20:36 | ED.GENADULT ---
HPI - General Adult General Chief complaint: General Medical Stated complaint: low abd pain (6 weeks ) Time Seen by Provider: 03/25/21 20:05 Source: patient and family Mode of arrival: ambulatory Limitations: no limitations History of Present Illness HPI narrative: 25-year-old female currently 6 weeks /7 YOHAN 10/2021 here with complaints of abdominal cramping. The patient tells me that she has had abdominal cramping throughout her . This prompted the ER visit on March 16 in which she had labs and an ultrasound which showed a small possible intrauterine . She followed up 2 days later in the office with the service advisor who confirmed possible small IUP of 4 weeks 6/7 days. Patient tells me she has continued to have cramping which is waxing and waning. Normally she drinks fluids and the cramping seems to improve however today the cramping has not improved despite drinking fluids. She she has had some nausea with decreased p.o. intake. No vomiting. No vaginal bleeding, urinary symptoms, vaginal discharge. She does feel lightheaded when she changes positions. Related Data Home Medications Medication Instructions Recorded Confirmed prenat.vits,[place],[id number]-[id number] 1 tab PO DAILY 03/18/21 03/18/21 Previous Rx's Medication Instructions Recorded ibuprofen 600 mg PO Q6H PRN 5 Days #20 tab 12/12/20 pyridoxine (vitamin B6) 25 mg PO QID PRN #10 tab MDD 200mg 03/25/21 Allergies Allergy/AdvReac Type Severity Reaction Status Date / Time Iodinated Contrast Media Allergy Unknown HIVES Verified 03/25/21 18:02 [IV DYE, IODINE CONTAINING CONTRAST ] Review of Systems Review of Systems: Yes all other systems are reviewed and are negative Constitutional: Constitutional: Reports no additional constitutional complaints, Denies body ache(s), Denies chills, Denies fever(s), Denies headache(s) and Denies weakness Eyes: Eyes: Reports no additional eye complaints and Denies change in vision ENT: Reports system reviewed and no additional complaints, except as documented, Reports dizziness (Lightheadedness), Denies headache(s), Denies nasal congestion, Denies nasal discharge and Denies neck pain Cardiovascular: Cardiovascular: Reports no additional cardiovascular complaints, Denies chest pain, Denies leg edema and Denies dyspnea Respiratory: Respiratory: Reports no additional respiratory complaints, Denies cough and Denies dyspnea Gastrointestinal: Gastrointestinal: Reports no additional gastrointestinal complaints, Reports abdominal pain (Abdominal cramping), Denies diarrhea, Reports nausea and Denies vomiting Genitourinary: Genitourinary: Reports no additional female genitourinary complaints and Denies urinary incontinence Musculoskeletal: Musculoskeletal: Reports no additional musculoskeletal complaints, Denies back pain, Denies arthralgias, Denies joint swelling, Denies neck pain, Denies numbness and Denies tingling Integumentary/Breasts: Skin/Breast: Reports system reviewed and no additional complaints, except as docu and Denies rash Neurologic: Reports system reviewed and no additional complaints, except as documented, Denies Abnormal speech present, Reports dizziness (Lightheadedness), Denies headache(s), Denies numbness, Denies tingling and Denies weakness PMFSH Past Medical History Attestation statement: The following information was validated with the patient. Source: old records reviewed and nursing notes reviewed Medical History Anemia Social History Social History Alcohol intake: never Patient Tobacco Use Status: Never used Tobacco Use of substances other than those prescribed or required for medical reasons: No Advance Directives: No Advance Directives Information Provided: Yes Patient : Yes Physical Exam Vital Signs: Vital Signs: Last Vital Signs Temp 98.7 F 03/25/21 20:00 Pulse 71 03/25/21 20:00 Resp 18 03/25/21 20:00 BP 101/63 03/25/21 20:00 Pulse Ox 96 03/25/21 20:00 Body Mass Index 34.8 Const: General: cooperative, healthy appearing, comfortable and no acute distress Orientation/consciousness: patient oriented x3 Limitations: no limitations HENMT: Head: Yes normal to inspection Ears: hearing grossly normal bilaterally General nose exam: Normal external nose present Face and sinus: Yes normal facial exam Mouth: Normal oral and palatal mucosa present Throat: Yes posterior oropharynx normal Eyes: General: appearance normal, both eyes and all related structures Pupils: Equal, round and reactive pupils present Neck: Neck: Yes normal visual inspection Chest: Chest palpation & inspection: normal inspection of the chest Resp: Effort & Inspection: normal respiratory effort Auscultation: clear to auscultation bilaterally Cardio: Rate: regular rate Rhythm: regular rhythm Peripheral pulses: Peripheral pulses 2+ throughout GI: Inspection: Yes normal to inspection Palpation (GI): Soft to palpation and Tenderness to palpation present (GI) (Mild lower suprapubic discomfort. no rebound or guarding ) Auscultation: normal bowel sounds : External Female Exam: normal external appearance Speculum Exam - Vagina: normal appearance of the vagina, normal palpation and normal vaginal discharge Speculum Exam - Cervix: normal appearance of the cervix Bimanual exam- vagina & uterus: normal bimanual exam and normal palpation Bimanual Exam- Adnexa, other: normal adnexae and No adnexal tenderness Back/Spine/Pelvis: Thoracic/Lumbar Spine: thoracic and lumbar spine normal to inspection Skin: General skin exam: no rashes or lesions noted Neuro: General: patient oriented x3, no focal motor deficits and normal sensation to monofilament Cranial nerves: Yes Equal, round and reactive pupils present, Yes Bilaterally intact EOM present, Yes Normal facial strength present and Yes Midline tongue present Cognition (Neuro): normal cognition Speech: No Abnormal speech present Gait exam (Neuro): Normal gait present Motor exam (neuro): 5/5 motor strength present throughout Sensory Exam: Normal double simultaneous stimulation for sensation Coordination: [id number] test normal and [id number] test normal Extrem: General: Yes normal to inspection, Yes no pedal edema and Yes no calf tenderness Course Course Course Narrative: 25-year-old female here with complaints of abdominal cramping which is lower which she has had intermittent throughout her . Normally she can drink fluids and the cramping improved but today did not seem to improve. She does tell me that she has had decreased p.o. intake due to nausea. No vomiting. She also feels lightheaded at times of position changes. She denies any vaginal bleeding. Exam has some mild tenderness. Pelvic exam is benign. Will send UA, labs, CT NG, BV testing. 2022-greater than 15 [address] urine[address] Will place IV and give normal saline bolus and oral antiemetic, follow labs. 2099-Sign out to Dr Flores pending above. Medical Decision Making MDM Narrative Medical decision making narrative: Likely threatened miscarriage with no vaginal bleeding and what appears to be intermittent more chronic pain throughout her entire Consider dehydration, UTI, vaginal infection. Medical Records Medical records reviewed: Yes I reviewed the patient's medical records. Lab Data Lab results reviewed: Yes I reviewed the patient's lab results. Result diagrams: 03/25/21 18:38 03/25/21 18:38 Labs: Lab Results 03/25/21 03/25/21 03/25/21 Range/Units 18:35 18:35 18:38 WBC 8.6 (4.8-10.8) X10*3/uL RBC 4.90 (4.20-5.50) X10*6/uL Hgb 13.1 (12.0-16.0) g/dl Hct 40.3 (37-47) % MCV 82.2 (80-98) fL MCH 26.7 L (27.0-33.0) pg MCHC 32.5 (31.0-35.0) g/dl RDW 12.7 (11.0-16.0) % Plt Count 223 (160-400) X10*3/uL MPV 11.3 (9.4-12.3) fL Immature Gran % (Auto) 0.1 (0.0-0.4) % Neut % (Auto) 58.1 (45-73) % Lymph % (Auto) 33.1 (20-40) % [place] % (Auto) 5.1 (2-11) % Eos % (Auto) 3.2 (0-4) % Baso % (Auto) 0.4 (0-2) % Lymph # (Auto) 2.8 (1.2-4.9) X10*3/uL [place] # (Auto) 0.4 (0.1-1.2) X10*3/uL Eos # (Auto) 0.3 (0.0-0.4) X10*3/uL Baso # (Auto) 0.0 (0.0-0.2) X10*3/uL Abs Immat Gran (auto) 0.01 (0.00-0.03) X10*3/uL Absolute Neuts (auto) 5.0 (2.0-8.3) X10*3/uL Absolute Nucleated RBC 0.000 (0.0-0.012) X10*3/uL Nucleated RBC % (auto) 0.0 (0.0-0.2) /100WBC Sodium (135-145) mmol/L Potassium (3.3-5.1) mmol/L Chloride (96-108) mmol/L Carbon Dioxide (22-29) mmol/L Anion Gap (12-20) BUN (9-16) mg/dL Creatinine (0.5-1.4) mg/dL Estim Creat Clear Calc Estimated GFR Random Glucose (60-115) mg/dL Calcium (8.4-10.2) mg/dL Total Bilirubin (0.0-1.0) mg/dL Direct Bilirubin (0.0-0.5) mg/dL AST (5-31) U/L ALT (0-31) U/L Alkaline Phosphatase (39-117) U/L Total Protein (6.5-8.0) g/dL Albumin (3.5-5.0) g/dL Beta HCG, Quant mIU/mL Urine Color YELLOW Urine Appearance HAZY Urine pH 6.0 (5.0-8.0) Ur Specific [place] >= 1.030 H (1.005-1.025) Urine Protein NEG (NEG-TRACE) MG/DL Urine Glucose (UA) NEG (NEG) MG/DL Urine Ketones 15 (NEG) MG/DL Urine Blood NEG (NEG) Urine Nitrite NEG (NEG) Ur Leukocyte Esterase NEG (NEG) Urine Test POSITIVE H (NEGATIVE) 03/25/21 Range/Units 18:38 WBC (4.8-10.8) X10*3/uL RBC (4.20-5.50) X10*6/uL Hgb (12.0-16.0) g/dl Hct (37-47) % MCV (80-98) fL MCH (27.0-33.0) pg MCHC (31.0-35.0) g/dl RDW (11.0-16.0) % Plt Count (160-400) X10*3/uL MPV (9.4-12.3) fL Immature Gran % (Auto) (0.0-0.4) % Neut % (Auto) (45-73) % Lymph % (Auto) (20-40) % [place] % (Auto) (2-11) % Eos % (Auto) (0-4) % Baso % (Auto) (0-2) % Lymph # (Auto) (1.2-4.9) X10*3/uL [place] # (Auto) (0.1-1.2) X10*3/uL Eos # (Auto) (0.0-0.4) X10*3/uL Baso # (Auto) (0.0-0.2) X10*3/uL Abs Immat Gran (auto) (0.00-0.03) X10*3/uL Absolute Neuts (auto) (2.0-8.3) X10*3/uL Absolute Nucleated RBC (0.0-0.012) X10*3/uL Nucleated RBC % (auto) (0.0-0.2) /100WBC Sodium 135 (135-145) mmol/L Potassium 3.8 (3.3-5.1) mmol/L Chloride 104 (96-108) mmol/L Carbon Dioxide 24 (22-29) mmol/L Anion Gap 11 L (12-20) BUN 9 (9-16) mg/dL Creatinine 0.77 (0.5-1.4) mg/dL Estim Creat Clear Calc 120.6 Estimated GFR > 60 Random Glucose 85 (60-115) mg/dL Calcium 9.1 (8.4-10.2) mg/dL Total Bilirubin 0.3 (0.0-1.0) mg/dL Direct Bilirubin < 0.2 (0.0-0.5) mg/dL AST 23 (5-31) U/L ALT 30 (0-31) U/L Alkaline Phosphatase 90 (39-117) U/L Total Protein 7.1 (6.5-8.0) g/dL Albumin 4.2 (3.5-5.0) g/dL Beta HCG, Quant 60155 mIU/mL Urine Color Urine Appearance Urine pH (5.0-8.0) Ur Specific [place] (1.005-1.025) Urine Protein (NEG-TRACE) MG/DL Urine Glucose (UA) (NEG) MG/DL Urine Ketones (NEG) MG/DL Urine Blood (NEG) Urine Nitrite (NEG) Ur Leukocyte Esterase (NEG) Urine Test (NEGATIVE) Discharge Plan Discharge Clinical Impression: Patient Disposition: Home, Self-Care Instructions: First Trimester (ED) Additional Instructions: Increase fluids, rest Keep saltine crackers by your bedside before rising in the morning eat 1-2 Follow-up with OB Prescriptions: New pyridoxine (vitamin B6) 25 mg tablet 25 mg PO QID MDD 200mg PRN (Reason: nausea and vomiting) Qty: 10 RF: 0 No Action ibuprofen 600 mg tablet 600 mg PO Q6H PRN (Reason: pain) 5 Days Qty: 20 RF: 0 prenat.vits,[place],[id number]-[id number] Tablet 1 tab PO DAILY RF: 0 Referrals: Gissell Brady MD [Physician] - 2 days
[2021-03-25] MEDS: 0.9 % Sodium Chloride 1,000 ML 999 ML IV (20:52)
[2021-03-25 21:01] LABS: HCG Quantitative 34468 mIU/mL
[2021-03-25 22:50] VITALS: BP 103/43; PULSE 72; RESP 16; TEMP 37.2; O2SAT 98
[2021-03-25] MEDS: ondansetron HCL 4 MG/2 ML VIAL IVPUSH (23:04)
--- NOTE | 2021-03-25 23:05 | PC.NURSE ---
Pyridoxine not given as of yet as not available in ED pyxis and supervisor pyrotechnic loading needs to bring down from ICU
[2021-03-26] VITALS: RESP 14
[2021-03-26] MEDS: Pyridoxine HCl (Vitamin B6) 50 MG TABLET 25 MG PO (01:28)
[2021-03-26 04:50] LABS: CT PCR NOT DETECTED (Not Detect.); NG PCR NOT DETECTED (Not Detect.)
[2021-03-26 12:55] LABS: BV Int Neg Control Negative (Negative); BV Int Pos Control Positive (Positive)
== END 2021-03-26 01:30 | disposition home or self-care (01) ==
PROVIDERS: Nurse Practitioner Family; Emergency Provider Emergency Medicine Emergency Medical Services; PCP Nurse Practitioner Primary Care
DX: O23.591 Infection of other part of genital tract in pregnancy, first trimester (principal); B96.89 Other specified bacterial agents as the cause of diseases classified elsewhere; Z3A.01 Less than 8 weeks gestation of pregnancy
CPT/HCPCS: 36415; 80048; 80076; 81003; 81025; 84702; 85025; 87480; 87491; 87510; 87591; 87660; 96361; 96374; 99284; J2405

== ENCOUNTER 2021-04-03 08:51 | Emergency (ER) | payer MEDICAID, SELFPAY ==
[2021-04-03 09:20] VITALS: BP 106/61; PULSE 64; RESP 16; TEMP 36.9; O2SAT 99
--- NOTE | 2021-04-03 09:30 | ED_ITS ---
HPI - Nausea/Vomiting/Diarrhea General Chief complaint: Nausea/Vomiting/Diarrhea Stated complaint: vomitting blood 8 weeks Time Seen by Provider: 04/03/21 08:53 Source: patient Mode of arrival: ambulatory Limitations: no limitations History of Present Illness HPI Narrative: 25 yo female D = LMP 8 weeks threw up her entire last this time c/o nausea and vomiting, no vag complaints but notes that she has been throwing up so hard she has seen some streaks of blood no other GIB complaints MD elicited complaint: nausea, vomiting and diarrhea Pertinent past history: other (hyperemesis) Onset (ago): day(s) Description of vomiting: food contents Location of pain: none Severity: moderate Exacerbating factors: eating Relieving factors: none Context: other (hx of hyperemesis in prior pregnancies) Associated symptoms: loss of appetite, malaise and nausea/vomiting Related Data Home Medications Medication Instructions Recorded Confirmed prenat.vits,quinton,[id number] 1 tab PO DAILY 03/18/21 03/18/21 Previous Rx's Medication Instructions Recorded ibuprofen 600 mg PO Q6H PRN 5 Days #20 tab 12/12/20 pyridoxine (vitamin B6) 25 mg PO QID PRN #10 tab MDD 200mg 03/25/21 metronidazole [Flagyl] 500 mg PO BID 7 Days #14 tab 03/28/21 metoclopramide HCl [Reglan] 10 mg PO Q6H PRN #30 tab 04/03/21 nitrofurantoin monohyd/m-cryst 100 mg PO BID 5 Days #10 cap 04/03/21 [Macrobid] promethazine 25 mg MN Q6H PRN #12 ea 04/03/21 Allergies Allergy/AdvReac Type Severity Reaction Status Date / Time Iodinated Contrast Media Allergy Unknown HIVES Verified 03/25/21 18:02 [IV DYE, IODINE CONTAINING CONTRAST ] Review of Systems Review of Systems: Constitutional : No Weight loss, No Fever, pos Chills ENT/Mouth : No sore throat, No Rhinorrhea Eyes: No Swelling, No Redness Cardiovascular : No Chest Pain, No SOB, NoEdema Respiratory : No Cough, No Sputum, No Wheezing Gastrointestinal : Positive Nausea, Positive Vomiting, no Diarrhea, no abdominal Pain, No Hematochezia, No Melena Genitourinary : No Dysuria, No Urinary Frequency, No Hematuria, No Urgency Musculoskeletal : No joint pain, No Myalgias, No Joint Swelling Skin : No Skin Lesions, No rash Neuro : pos Weakness, No Numbness, No Dizziness, No Headache Psych : No Anxiety/Panic, No Depression Heme/Lymph: No Bruising, No Lymphadenopathy Endocrine : No Polyuria, No Polydipsia All other systems reviewed and are negative. [facility] Past Medical History Attestation statement: The following information was validated with the patient. Medical History Anemia Hyperemesis Social History Social History Alcohol intake: never Patient Tobacco Use Status: Never used Tobacco Use of substances other than those prescribed or required for medical reasons: No Advance Directives: Yes Advance Directives Information Provided: Yes Advance Directives on File: No Patient : Yes Physical Exam Vital Signs: Vital Signs: Last Vital Signs Temp 98.8 F 04/03/21 09:37 Pulse 65 04/03/21 09:37 Resp 16 04/03/21 09:20 BP 105/57 L 04/03/21 09:37 Pulse Ox 100 04/03/21 09:37 Body Mass Index 33.6 Appearance: Alert. Oriented X3. No acute distress. Eyes: Pupils equal, round and reactive to light. ENT: Pharynx moderate dry MM Neck: Normal inspection. Neck supple. CVS: Normal heart rate and rhythm. Pulses normal. Respiratory: No respiratory distress. Breath sounds normal. Abdomen: Soft and non-tender. Skin: Skin warm and dry. Normal skin color. Normal skin turgor. Extremities: No lower extremity edema. No calf ttp Neuro: Oriented X 3. No motor deficit. No sensory deficit. Course Course Course Narrative: patient can tolerate PO now, labs stable, given bags of fluids, will need Rx to go home with given rocephin for UTI will DC on macrobid for 4 more days MDM - Nausea/Vomiting/Diarrhea MDM Narrative Medical decision making narrative: 25 yo female D = LMP 8 weeks threw up her entire last this time c/o nausea and vomiting, no vag complaints but notes that she has been throwing up so hard she has seen some streaks of blood no other GIB complaints at this time suspect streaked blood due to forceful emesis, doubt GIB, hx of same in past with vomiting in prior pregnancies, at this time will need labs, IVF x 2L, IV reglan/benadryl, pepcid, no abdominal pain or bleeding appropriate rise in quant doubt ectopic, dispo per results and ability to tolerate PO Lab Data Result diagrams: 04/03/21 10:19 04/03/21 10:19 Labs: Lab Results 04/03/21 04/03/21 04/03/21 Range/Units 10:19 10:19 10:39 WBC 7.4 (4.8-10.8) X10*3/uL RBC 4.77 (4.20-5.50) X10*6/uL Hgb 12.9 (12.0-16.0) g/dl Hct 38.6 (37-47) % MCV 80.9 (80-98) fL MCH 27.0 (27.0-33.0) pg MCHC 33.4 (31.0-35.0) g/dl RDW 12.1 (11.0-16.0) % Plt Count 240 (160-400) X10*3/uL MPV 10.7 (9.4-12.3) fL Immature Gran % (Auto) 0.1 (0.0-0.4) % Neut % (Auto) 63.4 (45-73) % Lymph % (Auto) 30.1 (20-40) % [place] % (Auto) 4.2 (2-11) % Eos % (Auto) 1.9 (0-4) % Baso % (Auto) 0.3 (0-2) % Lymph # (Auto) 2.2 (1.2-4.9) X10*3/uL [place] # (Auto) 0.3 (0.1-1.2) X10*3/uL Eos # (Auto) 0.1 (0.0-0.4) X10*3/uL Baso # (Auto) 0.0 (0.0-0.2) X10*3/uL Abs Immat Gran (auto) 0.01 (0.00-0.03) X10*3/uL Absolute Neuts (auto) 4.7 (2.0-8.3) X10*3/uL Absolute Nucleated RBC 0.000 (0.0-0.012) X10*3/uL Nucleated RBC % (auto) 0.0 (0.0-0.2) /100WBC Sodium 136 (135-145) mmol/L Potassium 4.1 (3.3-5.1) mmol/L Chloride 105 (96-108) mmol/L Carbon Dioxide 21 L (22-29) mmol/L Anion Gap 14 (12-20) BUN 7 L (9-16) mg/dL Creatinine 0.76 (0.5-1.4) mg/dL Estim Creat Clear Calc 120.0 Estimated GFR > 60 Random Glucose 87 (60-115) mg/dL Calcium 9.4 (8.4-10.2) mg/dL Magnesium 2.0 (1.6-2.6) mg/dL Total Bilirubin 0.5 (0.0-1.0) mg/dL Direct Bilirubin 0.2 (0.0-0.5) mg/dL AST 21 (5-31) U/L ALT 23 (0-31) U/L Alkaline Phosphatase 82 (39-117) U/L Total Protein 7.4 (6.5-8.0) g/dL Albumin 4.2 (3.5-5.0) g/dL Lipase 16 (8-78) U/L Beta HCG, Quant 21462 mIU/mL Urine Color YELLOW Urine Appearance HAZY Urine pH 6.0 (5.0-8.0) Ur Specific [place] 1.025 (1.005-1.025) Urine Protein 1+ H (NEG-TRACE) MG/DL Urine Glucose (UA) NEG (NEG) MG/DL Urine Ketones >=80 (NEG) MG/DL Urine Blood TRACE (NEG) Urine Nitrite NEG (NEG) Ur Leukocyte Esterase TRACE H (NEG) Urine RBC 1-4 (0) /HPF Urine WBC 10-14 H (0-4) /HPF Ur Squamous Epith Cells 3+ /LPF Urine Bacteria 2+ /LPF Urine Mucus 2+ /LPF Discharge Plan Discharge Clinical Impression: Hyperemesis gravidarum, UTI (urinary tract infection) Patient Disposition: Home, Self-Care Instructions: Hyperemesis Gravidarum (ED), Urinary Tract Infection in (ED) Additional Instructions: return to ED for any worsening symptoms or concerns please follow up with your OBGYN YOUR URINE HAD A MILD INFECTION IN IT YOU WERE GIVEN IV ANTIBIOTICS IN THE ER THAT LASTS 24 HOURS PLEASE START THE MACROBID ON 04/04 (SUNDAY) Prescriptions: New promethazine 25 mg suppository 25 mg MN Q6H PRN (Reason: nausea and vomiting) Qty: 12 RF: 0 nitrofurantoin monohyd/m-cryst [Macrobid] 100 mg capsule 100 mg PO BID 5 Days Qty: 10 RF: 0 metoclopramide HCl [Reglan] 10 mg tablet 10 mg PO Q6H PRN (Reason: nausea and vomiting) Qty: 30 RF: 0 No Action ibuprofen 600 mg tablet 600 mg PO Q6H PRN (Reason: pain) 5 Days Qty: 20 RF: 0 pyridoxine (vitamin B6) 25 mg tablet 25 mg PO QID MDD 200mg PRN (Reason: nausea and vomiting) Qty: 10 RF: 0 metronidazole [Flagyl] 500 mg tablet 500 mg PO BID 7 Days Qty: 14 RF: 0 prenat.vits,quinton,[id number] Tablet 1 tab PO DAILY RF: 0
[2021-04-03 09:37] VITALS: BP 105/57; PULSE 64; PULSE 65; TEMP 37.1; O2SAT 100; O2SAT 98; BMI 33.6
[2021-04-03 10:23] LABS: MANUAL DIFF FLAG NO
[2021-04-03 10:24] LABS: Basophils Percent Auto 0.3 % (0-2); Eosinophils Absolute Auto 0.1 X10*3/uL (0.0-0.4); Eosinophils Percent Auto 1.9 % (0-4); Hematocrit 38.6 % (37-47); Hemoglobin 12.9 g/dl (12.0-16.0); Imm Gran Abs Auto 0.01 X10*3/uL (0.00-0.03); Imm Gran Pct Auto 0.1 % (0.0-0.4); Lymphocytes Absolute Auto 2.2 X10*3/uL (1.2-4.9); Lymphocytes Percent Auto 30.1 % (20-40); Mean Corpuscular HGB Conc 33.4 g/dl (31.0-35.0); Mean Corpuscular Volume 80.9 fL (80-98); Mean Platelet Volume 10.7 fL (9.4-12.3); Monocytes Absolute Auto 0.3 X10*3/uL (0.1-1.2); Monocytes Percent Auto 4.2 % (2-11); Neutrophils Absolute Auto 4.7 X10*3/uL (2.0-8.3); Neutrophils Percent Auto 63.4 % (45-73); Platelet Count 240 X10*3/uL (160-400); Red Blood Count 4.77 X10*6/uL (4.20-5.50); Red Cell Distribution Width 12.1 % (11.0-16.0); White Blood Count 7.4 X10*3/uL (4.8-10.8)
[2021-04-03] MEDS: 0.9 % Sodium Chloride 1,000 ML 999 ML IVCONT ×2 (10:28)
[2021-04-03] MEDS: Famotidine/PF 20 MG/2 ML VIAL IVPUSH (10:32)
[2021-04-03] MEDS: diphenhydrAMINE HCL 50 MG/ML VIAL 25 MG IVPUSH (10:34)
[2021-04-03] MEDS: Metoclopramide HCl 10 MG/2 ML VIAL IVPUSH (10:36)
[2021-04-03 10:48] LABS: Alanine Aminotransferase 23 U/L (0-31); Albumin Level 4.2 g/dL (3.5-5.0); Alkaline Phosphatase 82 U/L (39-117); Anion Gap 14 (12-20); Aspartate Amino Transferase 21 U/L (5-31); Bilirubin Direct 0.2 mg/dL (0.0-0.5); Bilirubin Total 0.5 mg/dL (0.0-1.0); Blood Urea Nitrogen 7 mg/dL (9-16); Calcium 9.4 mg/dL (8.4-10.2); Carbon Dioxide 21 mmol/L (22-29); Chloride 105 mmol/L (96-108); Estimated Glomerular Filt Rate > 60; Glucose Random 87 mg/dL (60-115); Lipase 16 U/L (8-78); Potassium 4.1 mmol/L (3.3-5.1); Sodium 136 mmol/L (135-145); Total Protein 7.4 g/dL (6.5-8.0)
[2021-04-03 10:55] LABS: Glucose Urine UA NEG (NEG); Leukocyte Esterase Urine TRACE (NEG); Nitrite Urine NEG (NEG); Specific Gravity - Urine 1.025 (1.005-1.025); UACC Culture Trigger YES; Urine Blood TRACE (NEG); Urine Ketones >=80 MG/DL (NEG); Urine Protein 1+ MG/DL (NEG-TRACE)
[2021-04-03 10:56] LABS: Appearance Urine HAZY; Color Urine YELLOW
[2021-04-03 11:00] LABS: Bacteria Urine 2+ /LPF; Mucus Urine 2+ /LPF; Squamous Epithelial Cell Urine 3+ /LPF
[2021-04-03] MEDS: cefTRIAXone sodium 1 GM in 0.9 % Sodium Chloride 50 ML IV (11:49)
[2021-04-03 11:50] VITALS: RESP 16
[2021-04-03 12:45] VITALS: BP 99/52
== END 2021-04-03 13:35 | disposition home or self-care (01) ==
PROVIDERS: Emergency Provider Emergency Medicine; PCP Nurse Practitioner Primary Care
DX: O21.0 Mild hyperemesis gravidarum (principal); O23.41 Unspecified infection of urinary tract in pregnancy, first trimester; Z3A.08 8 weeks gestation of pregnancy
CPT/HCPCS: 36415; 80048; 80076; 81001; 81003; 83690; 83735; 84702; 85025; 87086; 96361; 96365; 96375; 99284; J0696; J1200; J2765

== ENCOUNTER 2021-04-11 12:23 | Outpatient (REF) | payer MEDICAID, SELFPAY ==
--- NOTE | ~2021-04-11 | US_ITS ---
EXAMINATION: US OBSTETRICAL ULTRASOUND CLINICAL INFORMATION: Vomiting. Quants rising. COMPARISON: None. LMP: 02/07/2021. Gestational age by maternal dates is 9 weeks, 0 days. Estimated date of delivery by maternal dates is 11/14/2021. TECHNIQUE: Transabdominal imaging of pelvis is performed. FINDINGS: There is a single intrauterine gestational sac with visible yolk sac, embryo/fetus, and cardiac activity. There is no significant subchorionic hemorrhage or hematoma. HR: 170 beats per minute. CRL (crown rump length): 2.15 cm (8 weeks 6 days +/- 4 days). YOHAN (estimated date of delivery): 11/15/2021 +/- 4 days. There is tiny subchorionic bleed. MATERNAL ADNEXA: The right maternal ovary measures 3.6 x 1.1 x 1.7 cm. The left maternal ovary measures 3.3 x 1.7 x 1.7 cm. There is a corpus luteal cyst measuring 1.5 x 1.3 x 1.4 cm. There is no significant maternal adnexal mass. No maternal pelvic ascites. US/US OB <= 14 weeks fetus IMPRESSION: 1. Single intrauterine gestation with ultrasound gestational age of 8 weeks 6 days +/- 4 days. 2. Estimated date of delivery is 11/15/2021 +/- 4 days. 3. There is tiny subchorionic bleed. 4. Small corpus luteal cyst left ovary.
== END 2021-04-11 12:24 | disposition home or self-care (01) ==
LOC: HO.US 12:23
PROVIDERS: Visit Provider Advanced Practice Midwife
DX: O26.891 Other specified pregnancy related conditions, first trimester (principal); R11.10 Vomiting, unspecified
CPT/HCPCS: 76801

== ENCOUNTER 2021-04-13 10:25 | Emergency (ER) | payer MEDICAID, SELFPAY ==
[2021-04-13 11:33] VITALS: BP 121/72; PULSE 72; RESP 16; TEMP 36.2; O2SAT 98; BMI 32.2
[2021-04-13 11:45] LABS: MANUAL DIFF FLAG NO
[2021-04-13 11:47] LABS: Basophils Percent Auto 0.2 % (0-2); Eosinophils Absolute Auto 0.1 X10*3/uL (0.0-0.4); Eosinophils Percent Auto 1.3 % (0-4); Hematocrit 38.6 % (37-47); Imm Gran Abs Auto 0.01 X10*3/uL (0.00-0.03); Imm Gran Pct Auto 0.1 % (0.0-0.4); Lymphocytes Absolute Auto 2.2 X10*3/uL (1.2-4.9); Lymphocytes Percent Auto 26.4 % (20-40); Mean Corpuscular HGB Conc 33.7 g/dl (31.0-35.0); Mean Corpuscular Hemoglobin 27.4 pg (27.0-33.0); Mean Corpuscular Volume 81.3 fL (80-98); Mean Platelet Volume 11.5 fL (9.4-12.3); Monocytes Absolute Auto 0.4 X10*3/uL (0.1-1.2); Monocytes Percent Auto 5.1 % (2-11); Neutrophils Absolute Auto 5.5 X10*3/uL (2.0-8.3); Neutrophils Percent Auto 66.9 % (45-73); Platelet Count 230 X10*3/uL (160-400); Red Blood Count 4.75 X10*6/uL (4.20-5.50); Red Cell Distribution Width 11.9 % (11.0-16.0); White Blood Count 8.2 X10*3/uL (4.8-10.8)
[2021-04-13 12:22] LABS: Anion Gap 14 (12-20); Blood Urea Nitrogen 7 mg/dL (9-16); Calcium 9.6 mg/dL (8.4-10.2); Carbon Dioxide 20 mmol/L (22-29); Chloride 104 mmol/L (96-108); Creatinine Clr Calc Pharmacy 127.5; Estimated Glomerular Filt Rate > 60; Glucose Random 76 mg/dL (60-115); Potassium 3.9 mmol/L (3.3-5.1); Sodium 134 mmol/L (135-145)
--- NOTE | 2021-04-13 13:27 | ED.NAVMDI ---
HPI - Nausea/Vomiting/Diarrhea General Chief complaint: Nausea/Vomiting/Diarrhea Stated complaint: vomiting Time Seen by Provider: 04/13/21 13:24 Source: patient History of Present Illness HPI Narrative: this is a 25 years old of female presented to the emergency department with the chief complaint no nausea vomiting since yesterday he states he is unable to eat and drink anything,she is 7 weeks gestation elicited complaint: nausea and vomiting Onset (ago): day(s) (1) Associated nausea: Yes Associated abdominal pain: No Location of pain: none Quality: cramping Related Data Home Medications Medication Instructions Recorded Confirmed prenat.vits,quinton,[id number] 1 tab PO DAILY 03/18/21 03/18/21 Previous Rx's Medication Instructions Recorded ibuprofen 600 mg PO Q6H PRN 5 Days #20 tab 12/12/20 pyridoxine (vitamin B6) 25 mg PO QID PRN #10 tab MDD 200mg 03/25/21 metronidazole [Flagyl] 500 mg PO BID 7 Days #14 tab 03/28/21 metoclopramide HCl [Reglan] 10 mg PO Q6H PRN #30 tab 04/03/21 nitrofurantoin monohyd/m-cryst 100 mg PO BID 5 Days #10 cap 04/03/21 [Macrobid] promethazine 25 mg NC Q6H PRN #12 ea 04/03/21 Allergies Allergy/AdvReac Type Severity Reaction Status Date / Time Iodinated Contrast Media Allergy Unknown HIVES Verified 03/25/21 18:02 [IV DYE, IODINE CONTAINING CONTRAST ] Review of Systems Review of Systems: Yes all other systems are reviewed and are negative Cardiovascular: Cardiovascular: Reports no additional cardiovascular complaints and Reports Abdominal Cramping after Meds Gastrointestinal: Gastrointestinal: Reports no additional gastrointestinal complaints and Reports nausea Neurologic: Reports system reviewed and no additional complaints, except as documented PMFSH Past Medical History Attestation statement: The following information was validated with the patient. Medical History Anemia Hyperemesis Social History Social History Alcohol intake: never Patient Tobacco Use Status: Never used Tobacco Use of substances other than those prescribed or required for medical reasons: No Advance Directives: Yes Advance Directives Information Provided: Yes Advance Directives on File: No Patient : Yes Physical Exam Vital Signs: Vital Signs: Last Vital Signs Temp 98.4 F 04/13/21 14:11 Pulse 65 04/13/21 14:11 Resp 16 04/13/21 14:11 BP 101/45 L 04/13/21 14:11 Pulse Ox 100 04/13/21 14:11 Body Mass Index 32.2 Const: General: cooperative, healthy appearing, comfortable, no acute distress, well developed, alert, awake and Physically active Orientation/consciousness: oriented to person, oriented to place, oriented to time and patient oriented x3 HENMT: Head: Yes normal to inspection Eyes: General: appearance normal, both eyes and all related structures Neck: Neck: Yes normal visual inspection, Yes full ROM and Yes no lymphadenopathy Chest: Chest palpation & inspection: normal inspection of the chest and normal palpation of entire chest wall Resp: Effort & Inspection: normal respiratory effort Auscultation: clear to auscultation bilaterally Cardio: Jugular venous distension: no JVD Rate: regular rate Rhythm: regular rhythm GI: Inspection: Yes normal to inspection Palpation (GI): Soft to palpation, nontender, no guarding and not rigid Skin: General skin exam: no rashes or lesions noted, elasticity normal and turgor normal Neuro: General: oriented to person, oriented to place, oriented to time, patient oriented x3 and gait normal Extrem: General: Yes normal to inspection, Yes full ROM and Yes capillary refill normal MDM - Nausea/Vomiting/Diarrhea Medical Records Medical records narrative: patient is feeling much better she states that she already has medication for nausea at home,at this time will d/c pt home Lab Data Result diagrams: 04/13/21 11:41 04/13/21 11:41 Labs: Lab Results 04/13/21 04/13/21 04/13/21 Range/Units 11:41 11:41 13:34 WBC 8.2 (4.8-10.8) X10*3/uL RBC 4.75 (4.20-5.50) X10*6/uL Hgb 13.0 (12.0-16.0) g/dl Hct 38.6 (37-47) % MCV 81.3 (80-98) fL MCH 27.4 (27.0-33.0) pg MCHC 33.7 (31.0-35.0) g/dl RDW 11.9 (11.0-16.0) % Plt Count 230 (160-400) X10*3/uL MPV 11.5 (9.4-12.3) fL Immature Gran % (Auto) 0.1 (0.0-0.4) % Neut % (Auto) 66.9 (45-73) % Lymph % (Auto) 26.4 (20-40) % [place] % (Auto) 5.1 (2-11) % Eos % (Auto) 1.3 (0-4) % Baso % (Auto) 0.2 (0-2) % Lymph # (Auto) 2.2 (1.2-4.9) X10*3/uL [place] # (Auto) 0.4 (0.1-1.2) X10*3/uL Eos # (Auto) 0.1 (0.0-0.4) X10*3/uL Baso # (Auto) 0.0 (0.0-0.2) X10*3/uL Abs Immat Gran (auto) 0.01 (0.00-0.03) X10*3/uL Absolute Neuts (auto) 5.5 (2.0-8.3) X10*3/uL Absolute Nucleated RBC 0.000 (0.0-0.012) X10*3/uL Nucleated RBC % (auto) 0.0 (0.0-0.2) /100WBC Sodium 134 L (135-145) mmol/L Potassium 3.9 (3.3-5.1) mmol/L Chloride 104 (96-108) mmol/L Carbon Dioxide 20 L (22-29) mmol/L Anion Gap 14 (12-20) BUN 7 L (9-16) mg/dL Creatinine 0.70 (0.5-1.4) mg/dL Estim Creat Clear Calc 127.5 Estimated GFR > 60 Random Glucose 76 (60-115) mg/dL Calcium 9.6 (8.4-10.2) mg/dL Beta HCG, Quant 48686 mIU/mL Discharge Plan Discharge Prescriptions: No Action ibuprofen 600 mg tablet 600 mg PO Q6H PRN (Reason: pain) 5 Days Qty: 20 RF: 0 pyridoxine (vitamin B6) 25 mg tablet 25 mg PO QID MDD 200mg PRN (Reason: nausea and vomiting) Qty: 10 RF: 0 metronidazole [Flagyl] 500 mg tablet 500 mg PO BID 7 Days Qty: 14 RF: 0 promethazine 25 mg suppository 25 mg NC Q6H PRN (Reason: nausea and vomiting) Qty: 12 RF: 0 nitrofurantoin monohyd/m-cryst [Macrobid] 100 mg capsule 100 mg PO BID 5 Days Qty: 10 RF: 0 metoclopramide HCl [Reglan] 10 mg tablet 10 mg PO Q6H PRN (Reason: nausea and vomiting) Qty: 30 RF: 0 prenat.vits,quinton,[id number] Tablet 1 tab PO DAILY RF: 0
[2021-04-13] MEDS: 0.9 % Sodium Chloride 1,000 ML 999 ML IVCONT ×2 (14:00→14:21)
[2021-04-13 14:11] VITALS: BP 101/45; PULSE 65; RESP 16; TEMP 36.9; O2SAT 100
[2021-04-13] MEDS: ondansetron HCL 4 MG/2 ML VIAL IVPUSH (14:20)
== END 2021-04-13 17:22 | disposition home or self-care (01) ==
PROVIDERS: Emergency Provider Emergency Medicine; PCP Nurse Practitioner Primary Care
DX: O21.9 Vomiting of pregnancy, unspecified (principal); Z3A.01 Less than 8 weeks gestation of pregnancy
CPT/HCPCS: 36415; 80048; 84702; 85025; 99284; J2405

== ENCOUNTER → 2021-04-28 09:45 | Outpatient (BNVA) | payer MEDICAID, SELFPAY | PROVIDERS: PCP Nurse Practitioner Primary Care; Visit Provider Advanced Practice Midwife | DX: Z34.91 Encounter for supervision of normal pregnancy, unspecified, first trimester (principal); Z3A.11 11 weeks gestation of pregnancy | CPT/HCPCS: 99212 ==

== ENCOUNTER 2021-04-28 10:38 | Emergency (ER) | payer MEDICAID, SELFPAY ==
--- NOTE | ~2021-04-28 | US_ITS ---
EXAMINATION: US OB LIMITED CLINICAL INFORMATION: Abdominal cramping. COMPARISON: Most recent ultrasound dated 04/11/2021. LMP 02/07/2021. TECHNIQUE: Transabdominal images were obtained. FINDINGS: There is a single intrauterine gestation with a crown-rump length measuring 4.2 cm, corresponding to a gestational age of 11 weeks 1 day and YOHAN of 11/16/2021. The heart rate is 165 BPM. No evidence of subchorionic hemorrhage. Left ovary is sonographically unremarkable measuring 3.5 x 1.5 x 2.6 cm. Right ovary not seen. US/US OB limited IMPRESSION: Single intrauterine gestation with an YOHAN of 11/16/2021. heart rate of 165 BPM. No subchorionic hemorrhage.
[2021-04-28 10:41] VITALS: BP 113/73; PULSE 78; RESP 18; TEMP 36.9; O2SAT 96; BMI 32.1
--- NOTE | 2021-04-28 11:35 | ED.PREGNANCY ---
HPI - General Chief complaint: Nausea/Vomiting/Diarrhea Stated complaint: vomitting Time Seen by Provider: 04/28/21 11:18 Source: patient Mode of arrival: ambulatory Limitations: no limitations History of Present Illness HPI Narrative: 26-year-old female [id number] who is currently 11 weeks and 2 days with an estimated due date of 11/15/2021 by ultrasound on 04/11/2021 with a last menstrual period of 02/07/2021 being followed by OBGYN here Cara Herrera presenting to the ED after being sent by operating systems programmer Cara Herrera for severe hyperemesis gravidarum unable to keep anything down for the past few weeks. Reports that she has already lost 20 lb. She reports mild abdominal cramping that she believes is due to dehydration. She denies any fevers, chills, headaches, dizziness, sore throat, cough, chest pain, shortness of breath, back pain, vaginal bleeding, vaginal discharge, dysuria, urinary frequency/urgency, diarrhea or constipation, lower extremity edema or calf tenderness or any rashes or any other symptoms complaints or concerns at this time. MD Complaint: other (Nausea/vomiting) Onset (ago): day(s) Pain Consistency: constant Location: abdomen Severity: mild Quality: Cramping Relieving factors: none Exacerbating factors: none Associated symptoms: nausea and vomiting Vaginal discharge: none Vaginal bleeding: none Date of Last Menstrual Period: 02/07/21 Patient : Yes Expected Date of Delivery: 11/15/21 Number of Weeks : 11 OB History - Current : hyperemesis and other OB History - Previous Pregnancies: no complications care: followed by OB and previous ultrasound confirms IUP Related Data : 3 Para: 2 Total number of abortions (spontaneous and elective): 0 Home Medications Medication Instructions Recorded Confirmed prenat.vits,quinton,[id number] 1 tab PO DAILY 03/18/21 04/28/21 Previous Rx's Medication Instructions Recorded ibuprofen 600 mg PO Q6H PRN 5 Days #20 tab 12/12/20 pyridoxine (vitamin B6) 25 mg PO QID PRN #10 tab MDD 200mg 03/25/21 metronidazole [Flagyl] 500 mg PO BID 7 Days #14 tab 03/28/21 metoclopramide HCl [Reglan] 10 mg PO Q6H PRN #30 tab 04/03/21 nitrofurantoin monohyd/m-cryst 100 mg PO BID 5 Days #10 cap 04/03/21 [Macrobid] promethazine 25 mg MT Q6H PRN #12 ea 04/03/21 acetaminophen [Tylenol] 650 mg PO Q6H PRN #10 tab 04/28/21 ondansetron HCl [Zofran] 4 mg PO Q8H PRN #14 tab 04/28/21 Allergies Allergy/AdvReac Type Severity Reaction Status Date / Time Iodinated Contrast Media Allergy Unknown HIVES Verified 04/28/21 10:08 [IV DYE, IODINE CONTAINING CONTRAST ] Review of Systems Review of Systems: Constitutional : No Fever, No Chills, No Night Sweats, No Fatigue, No Malaise Cardiovascular : No Chest Pain, No SOB Respiratory : No Cough, No Sputum, No Wheezing, No Dyspnea Gastrointestinal : + Nausea, + Vomiting, No Diarrhea, + abdominal Pain, No Hematochezia, No Melena Genitourinary : No irregular bleeding, No Dysuria, No Urinary Frequency, No Hematuria,No Urinary Incontinence, No Urgency, No Flank Pain Musculoskeletal : No joint pain, No Myalgias, No Joint Swelling Skin : No Skin Lesions, No rash Neuro : No Weakness, No Numbness, No Paresthesias, No Loss of Consciousness, No Dizziness, No Headache Heme/Lymph: No Lymphadenopathy Endocrine : No Temperature Intolerance Yes all other systems are reviewed and are negative [facility] Past Medical History Attestation statement: The following information was validated with the patient. Medical History Anemia Hyperemesis : 3 Para: 2 Total number of abortions (spontaneous and elective): 0 Date of Last Menstrual Period: 02/07/21 Social History Social History Household Members: Spouse and Children Housing: House Alcohol intake: never Patient Tobacco Use Status: Never used Tobacco Trauma History: none Agree to transfusion: Yes Physical Exam Vital Signs: Vital Signs: Last Vital Signs Temp 98.5 F 04/28/21 10:41 Pulse 78 04/28/21 10:41 Resp 18 04/28/21 10:41 BP 113/73 04/28/21 10:41 Pulse Ox 96 04/28/21 10:41 Body Mass Index 32.1 vital signs have been reviewed as normal and appeared to be correct. Blood pressure normal. Heart rate normal. Respiration rate normal. Temperature normal. Oxygen saturation normal. Appearance: Alert. Oriented X3. No acute distress. Head: Normal external exam. Normocephalic. Eyes: PERRLA. EOMI. Conjunctiva and sclera normal. Eyelids normal. ENT: Pharynx normal. Uvula midline. Moist mucous membranes. Neck: Normal inspection. Neck supple. FROM. No adenopathy. No meningeal signs. CVS: Normal heart rate and rhythm. Heart sound normal. No murmurs noted. Pulses normal throughout. Respiratory: No respiratory distress. Painless inspiration. Breath sounds normal. No wheezes/rales/rhonchi noted. Chest nontender. No accessory muscle usage noted or decreased air movement noted. Abdomen: Soft and mild tenderness diffusely. Nondistended. No guarding. No rigidity. Bowel sounds normal in all 4 quadrants. No distention noted. No organomegaly noted. No visible injury noted. No rebound tenderness. Negative Rovsing sign. Negative obturator's sign. Negative psoas sign. Negative Capps sign. Back: No CVA tenderness. Full range of motion noted. Skin: Skin warm and dry. Normal skin color. Normal skin turgor. No rashes/lesions/lacerations noted. Extremities: Extremities exhibit normal range of motion. Extremities nontender. Neuro: Oriented X 3. No motor deficit. No sensory deficit. Reflexes normal. Normal steady gait. Course Course Course Narrative: 11:20am - 26-year-old female [id number] who is currently 11 weeks and 2 days with an estimated due date of 11/15/2021 by ultrasound on 04/11/2021 with a last menstrual period of 02/07/2021 being followed by OBGYN here Cara Susquehanna presenting to the ED after being sent by operating systems programmer Cara Susquehanna for severe hyperemesis gravidarum unable to keep anything down for the past few weeks. Reports that she has already lost 20 lb. She reports mild abdominal cramping that she believes is due to dehydration. Plan: Labs, UA, Limited OB US. Provide 2 L's of IVF's, IV zofran then re-evaluate. Reevaluation(s) Reevaluation #1: - labs returned and all within normal limits. Serum quant probably elevated. UA with 80 ketones in 10-14 white blood cells although patient has moderate epithelial cells therefore will await culture due to this may be a dirty catch. Ultrasound within normal limits normal tones. - I consulted with Dr. Quach he reported that the patient can tolerate p.o. then the patient can safely be discharged with nausea medication instructions to follow-up with OBGYN/operating systems programmer. Patient understands agrees with this plan. Time: 16:02 Procedures Perimortem Number of Weeks : 11 MDM - OB/Uterine Contractions Medical Records Attestation: I reviewed the patient's medical records. Lab Data Attestation: I reviewed the patient's lab results. Result diagrams: 04/28/21 11:40 04/28/21 11:40 Labs: Lab Results 04/28/21 04/28/21 04/28/21 Range/Units 11:40 11:40 14:12 WBC 7.1 (4.8-10.8) X10*3/uL RBC 4.61 (4.20-5.50) X10*6/uL Hgb 12.6 (12.0-16.0) g/dl Hct 36.9 L (37-47) % MCV 80.0 (80-98) fL MCH 27.3 (27.0-33.0) pg MCHC 34.1 (31.0-35.0) g/dl RDW 11.9 (11.0-16.0) % Plt Count 195 (160-400) X10*3/uL MPV 12.3 (9.4-12.3) fL Immature Gran % (Auto) 0.1 (0.0-0.4) % Neut % (Auto) 67.7 (45-73) % Lymph % (Auto) 24.5 (20-40) % [place] % (Auto) 5.3 (2-11) % Eos % (Auto) 2.0 (0-4) % Baso % (Auto) 0.4 (0-2) % Lymph # (Auto) 1.8 (1.2-4.9) X10*3/uL [place] # (Auto) 0.4 (0.1-1.2) X10*3/uL Eos # (Auto) 0.1 (0.0-0.4) X10*3/uL Baso # (Auto) 0.0 (0.0-0.2) X10*3/uL Abs Immat Gran (auto) 0.01 (0.00-0.03) X10*3/uL Absolute Neuts (auto) 4.8 (2.0-8.3) X10*3/uL Absolute Nucleated RBC 0.000 (0.0-0.012) X10*3/uL Nucleated RBC % (auto) 0.0 (0.0-0.2) /100WBC Sodium 136 (135-145) mmol/L Potassium 3.8 (3.3-5.1) mmol/L Chloride 104 (96-108) mmol/L Carbon Dioxide 23 (22-29) mmol/L Anion Gap 13 (12-20) BUN 4 L (9-16) mg/dL Creatinine 0.69 (0.5-1.4) mg/dL Estim Creat Clear Calc 127.8 Estimated GFR > 60 Random Glucose 86 (60-115) mg/dL Calcium 9.3 (8.4-10.2) mg/dL Magnesium 1.8 (1.6-2.6) mg/dL Total Bilirubin 0.4 (0.0-1.0) mg/dL AST 15 (5-31) U/L ALT 14 (0-31) U/L Alkaline Phosphatase 71 (39-117) U/L Total Protein 6.9 (6.5-8.0) g/dL Albumin 3.9 (3.5-5.0) g/dL Beta HCG, Quant 85125 mIU/mL Urine Color STRAW Urine Appearance CLEAR Urine pH 6.0 (5.0-8.0) Ur Specific [place] 1.020 (1.005-1.025) Urine Protein NEG (NEG-TRACE) MG/DL Urine Glucose (UA) NEG (NEG) MG/DL Urine Ketones >=80 (NEG) MG/DL Urine Blood NEG (NEG) Urine Nitrite NEG (NEG) Ur Leukocyte Esterase 2+ H (NEG) Urine RBC 0-2 (0) /HPF Urine WBC 10-14 H (0-4) /HPF Ur Squamous Epith Cells 3+ /LPF Urine Bacteria 2+ /LPF Imaging Data US OB Limited: Attestation: I personally reviewed and interpreted this imaging study as follows: Radiologist's impression: FINDINGS: There is a single intrauterine gestation with a crown-rump length measuring 4.2 cm, corresponding to a gestational age of 11 weeks 1 day and YOHAN of 11/16/2021. The heart rate is 165 BPM. No evidence of subchorionic hemorrhage. Left ovary is sonographically unremarkable measuring 3.5 x 1.5 x 2.6 cm. Right ovary not seen. US/US OB limited IMPRESSION: Single intrauterine gestation with an YOHAN of 11/16/2021. heart rate of 165 BPM. No subchorionic hemorrhage. Critical Care Time Critical Care Time Critical Care Time: Yes Total Critical Care Time: 60 Attestation: I personally attest to this time spent taking care of the patient Discharge Plan Discharge Clinical Impression: Hyperemesis gravidarum, Dehydration Patient Disposition: Home, Self-Care Instructions: Hyperemesis Gravidarum (ED), Dehydration (ED) Prescriptions: New acetaminophen [Tylenol] 325 mg tablet 650 mg PO Q6H PRN (Reason: fever or pain) Qty: 10 RF: 0 ondansetron HCl [Zofran] 4 mg tablet 4 mg PO Q8H PRN (Reason: nausea and vomiting) Qty: 14 RF: 0 No Action ibuprofen 600 mg tablet 600 mg PO Q6H PRN (Reason: pain) 5 Days Qty: 20 RF: 0 pyridoxine (vitamin B6) 25 mg tablet 25 mg PO QID MDD 200mg PRN (Reason: nausea and vomiting) Qty: 10 RF: 0 metronidazole [Flagyl] 500 mg tablet 500 mg PO BID 7 Days Qty: 14 RF: 0 promethazine 25 mg suppository 25 mg MT Q6H PRN (Reason: nausea and vomiting) Qty: 12 RF: 0 nitrofurantoin monohyd/m-cryst [Macrobid] 100 mg capsule 100 mg PO BID 5 Days Qty: 10 RF: 0 metoclopramide HCl [Reglan] 10 mg tablet 10 mg PO Q6H PRN (Reason: nausea and vomiting) Qty: 30 RF: 0 prenat.vits,quinton,[id number] Tablet 1 tab PO DAILY RF: 0 Referrals: Fernando Quach MD [Physician] - 2 days Stand Alone Forms: Work/School Release Print Language: Emirati
[2021-04-28 11:45] LABS: MANUAL DIFF FLAG NO
[2021-04-28 11:47] LABS: Basophils Percent Auto 0.4 % (0-2); Eosinophils Absolute Auto 0.1 X10*3/uL (0.0-0.4); Hematocrit 36.9 % (37-47); Hemoglobin 12.6 g/dl (12.0-16.0); Imm Gran Abs Auto 0.01 X10*3/uL (0.00-0.03); Imm Gran Pct Auto 0.1 % (0.0-0.4); Lymphocytes Absolute Auto 1.8 X10*3/uL (1.2-4.9); Lymphocytes Percent Auto 24.5 % (20-40); Mean Corpuscular HGB Conc 34.1 g/dl (31.0-35.0); Mean Corpuscular Hemoglobin 27.3 pg (27.0-33.0); Mean Platelet Volume 12.3 fL (9.4-12.3); Monocytes Absolute Auto 0.4 X10*3/uL (0.1-1.2); Monocytes Percent Auto 5.3 % (2-11); Neutrophils Absolute Auto 4.8 X10*3/uL (2.0-8.3); Neutrophils Percent Auto 67.7 % (45-73); Platelet Count 195 X10*3/uL (160-400); Red Blood Count 4.61 X10*6/uL (4.20-5.50); Red Cell Distribution Width 11.9 % (11.0-16.0); White Blood Count 7.1 X10*3/uL (4.8-10.8)
[2021-04-28] MEDS: 0.9 % Sodium Chloride 1,000 ML 999 ML IVCONT ×2 (11:50)
[2021-04-28] MEDS: ondansetron HCL 4 MG/2 ML VIAL IVPUSH ×2 (11:50→16:17)
[2021-04-28 12:14] LABS: Alanine Aminotransferase 14 U/L (0-31); Albumin Level 3.9 g/dL (3.5-5.0); Alkaline Phosphatase 71 U/L (39-117); Anion Gap 13 (12-20); Aspartate Amino Transferase 15 U/L (5-31); Bilirubin Total 0.4 mg/dL (0.0-1.0); Blood Urea Nitrogen 4 mg/dL (9-16); Calcium 9.3 mg/dL (8.4-10.2); Carbon Dioxide 23 mmol/L (22-29); Chloride 104 mmol/L (96-108); Creatinine Clr Calc Pharmacy 127.8; Estimated Glomerular Filt Rate > 60; Glucose Random 86 mg/dL (60-115); Magnesium 1.8 mg/dL (1.6-2.6); Potassium 3.8 mmol/L (3.3-5.1); Sodium 136 mmol/L (135-145); Total Protein 6.9 g/dL (6.5-8.0)
[2021-04-28 14:30] LABS: Glucose Urine UA NEG (NEG); Leukocyte Esterase Urine 2+ (NEG); Nitrite Urine NEG (NEG); UACC Culture Trigger YES; Urine Blood NEG (NEG); Urine Ketones >=80 MG/DL (NEG); Urine Protein NEG (NEG-TRACE)
[2021-04-28 14:32] LABS: Appearance Urine CLEAR; Color Urine STRAW
[2021-04-28 15:03] LABS: Bacteria Urine 2+ /LPF; RBC Urine 0-2 /HPF (0); Squamous Epithelial Cell Urine 3+ /LPF
== END 2021-04-28 16:24 | disposition home or self-care (01) ==
PROVIDERS: Physician Assistant Medical; Emergency Provider Emergency Medicine; PCP Nurse Practitioner Primary Care
DX: O21.0 Mild hyperemesis gravidarum (principal); O99.281 Endocrine, nutritional and metabolic diseases complicating pregnancy, first trimester; E86.0 Dehydration; Z3A.11 11 weeks gestation of pregnancy
CPT/HCPCS: 36415; 76815; 80053; 81001; 81003; 83735; 84702; 85025; 87086; 96361; 96374; 96376; 99282; 99284; J2405

== ENCOUNTER 2021-05-06 10:42 | Outpatient (REF) | payer MEDICAID, SELFPAY ==
--- NOTE | ~2021-05-06 | US_ITS ---
EXAMINATION: OBSTETRICAL ULTRASOUND, FIRST TRIMESTER HISTORY: 26-year-old at 12.4 weeks of gestation NT screening COMPARISON: 04/28/2021 TECHNIQUE: Real time transabdominal imaging with color and M-mode Doppler. FINDINGS: A single, live IUP CRL of 61.0 mm c/w 12.4wks is noted. Heart Rate: 160 beats per minute. Normal yolk sac seen. NT was 1.32.mm. NB Present The embryo appears sonographically wnl for this GA. Both maternal ovaries are seen and appear normal. GESTATIONAL AGE: 1. Established GA: 12.4 wks 2. GA from AUA: 12.4 wks ESTIMATED DATE OF DELIVERY: 1. Established YOHAN: 11/14/2021 2. YOHAN from AUA: 11/14/2021 US/US OB 1T nuc measure IMPRESSION: 1. Single live IUP 2. Size equals dates 3. NT of 1.32 mm MFM Consultation: I reviewed the ultrasound findings along with significance of NT measurement. The NT of less than 3mm is generally reassuring. However, the sensitivity for T21 detection is only 60%. I reviewed the availability of serum aneuploidy screening which includes cell-free DNA and placental protein based tests. I discussed the sensitivity, false-positive rate, and other limitations associated with each test. I also reviewed the availability of invasive diagnostic tests that are associated small but definite risk of miscarriage. We also reviewed the differences between screening tests and diagnostic tests. After our discussion, she opted for the First trimester screening that is based on cell-free DNA or non-invasive testing (NIPT). The result will be faxed to your office in approximately 7 days. A follow up at 18 weeks for survey has been scheduled. Thank you very much for this referral. Total time 30 minutes. The time spent was devoted to counseling the patient about the disease and diagnosis, coordinating care including reviewing her records, pertinent lab data and studies, as well as discussing diagnostic evaluation and workup, plan therapeutic interventions and future disposition of care. This includes any additional research needed to obtain further information in formulating the plan of care of this patient. This note was generated with a voice recognition program. Please excuse any errors which may have been overlooked during my review of this note. Sometimes these errors may affect the content or meaning of a given sentence.
== END 2021-05-06 10:43 | disposition home or self-care (01) ==
LOC: HO.US 10:42
PROVIDERS: PCP Nurse Practitioner Primary Care; Visit Provider Advanced Practice Midwife
DX: Z34.91 Encounter for supervision of normal pregnancy, unspecified, first trimester (principal); Z36.82 Encounter for antenatal screening for nuchal translucency
CPT/HCPCS: 76813

== ENCOUNTER 2021-05-10 09:22 | Outpatient (REF) | payer MEDICAID, SELFPAY ==
[2021-05-10 13:11] LABS: CT PCR NOT DETECTED (Not Detect.); NG PCR NOT DETECTED (Not Detect.)
== END 2021-05-10 09:23 | disposition home or self-care (01) ==
LOC: HO.LAB 09:22
PROVIDERS: PCP Nurse Practitioner Primary Care; Visit Provider Advanced Practice Midwife
DX: O21.0 Mild hyperemesis gravidarum (principal)
CPT/HCPCS: 81003; 87491; 87591; 88142; 99212

== ENCOUNTER 2021-05-21 11:50 | Emergency (ER) | payer MEDICAID, SELFPAY ==
[2021-05-21 11:57] VITALS: BP 119/62; PULSE 78; RESP 16; TEMP 36.8; O2SAT 98; BMI 30.4
--- NOTE | 2021-05-21 13:56 | ED.ABDPAIN ---
HPI - Abdominal Pain General Chief Complaint: Abdominal Pain Stated Complaint: Vomiting's 15 wks preg /Dry cough Time Seen by Provider: 05/21/21 13:54 Source: patient Mode of arrival: ambulatory Limitations: no limitations History of Present Illness HPI narrative: 26-year-old female, approximately 14 weeks 4 days based on ultrasound due day 11/15/2021 presents emergency department for evaluation of nausea, vomiting and abdominal pain x2 days. Patient states that she has not been able to eat or drink over the past 2 days. She states that yesterday she vomited 2 times. She states today she vomited 3 times. She states that she is not even able to hold down water. She states that she is having lower abdominal pain. She points to her suprapubic area when asked to localize the pain. She describes as a constant, sharp pain which is 8/10 at its worst. She did have some mild dysuria and urinary frequency. She denied headache, neck pain, chest pain, shortness of breath or dyspnea on exertion, vaginal discharge or vaginal bleeding The patient was seen in the emergency department on 04/28/2021 with a similar presentation. She states that she has been taking Zofran ODT 4 mg every 6 hours with no relief for nausea and vomiting. She states that her OBGYN is tried her on 2 other antinausea medications that have not worked. 04/28/2021 26-year-old female [id number] who is currently 11 weeks and 2 days with an estimated due date of 11/15/2021 by ultrasound on 04/11/2021 with a last menstrual period of 02/07/2021 being followed by OBGYN here aCra Herrera presenting to the ED after being sent by data communications analyst Cara Herrera for severe hyperemesis gravidarum unable to keep anything down for the past few weeks.? Reports that she has already lost 20 lb.? She reports mild abdominal cramping that she believes is due to dehydration.? She denies any fevers, chills, headaches, dizziness, sore throat, cough, chest pain, shortness of breath, back pain, vaginal bleeding, vaginal discharge, dysuria, urinary frequency/urgency, diarrhea or constipation, lower extremity edema or calf tenderness or any rashes or any other symptoms complaints or concerns at this time. MD Complaint: other (Nausea/vomiting) Related Data Previous Rx's Medication Instructions Recorded ondansetron HCl 4 mg tablet 4 mg PO Q8H PRN #30 tab 05/10/21 (Zofran) metoclopramide HCl 10 mg tablet 10 mg PO Q6H PRN #14 tab 05/21/21 (Reglan) Allergies Allergy/AdvReac Type Severity Reaction Status Date / Time Iodinated Contrast Media Allergy Unknown HIVES Verified 05/10/21 09:45 [IV DYE, IODINE CONTAINING CONTRAST ] Review of Systems Review of Systems Yes all other systems are reviewed and are negative Physical Exam Vital Signs: Vital Signs: Last Vital Signs Temp 98.3 F 05/21/21 11:57 Pulse 78 05/21/21 11:57 Resp 16 05/21/21 11:57 BP 119/62 05/21/21 11:57 Pulse Ox 98 05/21/21 11:57 Body Mass Index 30.4 Const: General: cooperative and no acute distress Orientation/consciousness: oriented to person and oriented to place Limitations: no limitations HENMT: Head: Yes normal to inspection, Yes normocephalic and Yes atraumatic Ears: external ears normal General nose exam: Normal external nose present Face and sinus: Yes normal facial exam Mouth: Normal oral and palatal mucosa present Throat: Yes posterior oropharynx normal Eyes: General: appearance normal, both eyes and all related structures Pupils: Equal, round and reactive pupils present Neck: Neck: Yes normal visual inspection, Yes no lymphadenopathy, Yes trachea midline and Yes supple Chest: Chest palpation & inspection: normal inspection of the chest and normal palpation of entire chest wall Resp: Effort & Inspection: normal respiratory effort and able to speak in complete sentences Auscultation: clear to auscultation bilaterally Cardio: Rate: regular rate Rhythm: regular rhythm Heart sounds: S1 normal heart sound present, S2 normal heart sound present and no murmurs GI: Inspection: Yes normal to inspection Palpation (GI): Soft to palpation, Tenderness to palpation present (GI) suprapubicly (Mild) and no guarding Auscultation: normal bowel sounds : General: Yes no CVA tenderness Back/Spine/Pelvis: Back: no CVA tenderness Skin: General skin exam: no rashes or lesions noted Neuro: General: oriented to person and oriented to place Cranial nerves: Yes CN's II-XII intact bilaterally and Yes Equal, round and reactive pupils present Cognition (Neuro): normal cognition Motor exam (neuro): 5/5 motor strength present throughout Extrem: General: Yes normal to inspection Psych: Appearance: grossly normal Speech and movement: Normal speech and movement present Affect: normal affect Attitude: cooperative Thought process: Normal thought process present Thought content: Normal thought content present Course Course Course Narrative: 26-year-old female who is 14 weeks 4 days illicit who presents emergency department for evaluation of nausea, vomiting, abdominal pain and dysuria x2 days. Patient has not been able to hold down any food or fluid. Vital signs were normal. The patient's physical examination did reveal tenderness with palpation over her suprapubic region of her abdomen otherwise was unremarkable. I ordered a laboratory evaluation and urinalysis on the patient. Patient was also ordered to get normal saline x1 L, Reglan 10 mg IV and Benadryl 25 mg IV. 1650: The patient is feeling significantly better after the above treatment, she states that her nausea is resolved. Patient's laboratory evaluation did reveal low bicarb of 19 and ketones in her urine which is consistent with her vomiting and starvation ketosis. The patient will be discharged home with a prescription for Reglan 10 mg every 6 hours. Advised to take Benadryl 25 mg when she takes the Reglan. The patient was given verbal and printed instructions prior to discharge. The patient was advised to follow-up with her PCP in 2 days and to return to the emergency department if her symptoms get worse or if she develops any new symptoms that are concerning to her. MDM - Abdominal Pain Lab Data Result diagrams: 05/21/21 14:50 05/21/21 14:50 Labs: Lab Results 05/21/21 05/21/21 05/21/21 Range/Units 14:50 14:50 14:50 WBC 7.5 (4.8-10.8) X10*3/uL RBC 4.68 (4.20-5.50) X10*6/uL Hgb 12.8 (12.0-16.0) g/dl Hct 37.7 (37-47) % MCV 80.6 (80-98) fL MCH 27.4 (27.0-33.0) pg MCHC 34.0 (31.0-35.0) g/dl RDW 12.4 (11.0-16.0) % Plt Count 185 (160-400) X10*3/uL MPV 12.3 (9.4-12.3) fL Immature Gran % (Auto) 0.1 (0.0-0.4) % Neut % (Auto) 62.7 (45-73) % Lymph % (Auto) 28.7 (20-40) % [place] % (Auto) 4.7 (2-11) % Eos % (Auto) 3.4 (0-4) % Baso % (Auto) 0.4 (0-2) % Lymph # (Auto) 2.1 (1.2-4.9) X10*3/uL [place] # (Auto) 0.4 (0.1-1.2) X10*3/uL Eos # (Auto) 0.3 (0.0-0.4) X10*3/uL Baso # (Auto) 0.0 (0.0-0.2) X10*3/uL Abs Immat Gran (auto) 0.01 (0.00-0.03) X10*3/uL Absolute Neuts (auto) 4.7 (2.0-8.3) X10*3/uL Absolute Nucleated RBC 0.000 (0.0-0.012) X10*3/uL Nucleated RBC % (auto) 0.0 (0.0-0.2) /100WBC Sodium 135 (135-145) mmol/L Potassium 4.3 (3.3-5.1) mmol/L Chloride 104 (96-108) mmol/L Carbon Dioxide 19 L (22-29) mmol/L Anion Gap 16 (12-20) BUN 5 L (9-16) mg/dL Creatinine 0.64 (0.5-1.4) mg/dL Estim Creat Clear Calc 134.1 Estimated GFR > 60 Random Glucose 81 (60-115) mg/dL Calcium 9.1 (8.4-10.2) mg/dL Total Bilirubin 0.2 (0.0-1.0) mg/dL AST 17 (5-31) U/L ALT 13 (0-31) U/L Alkaline Phosphatase 65 (39-117) U/L Total Protein 6.9 (6.5-8.0) g/dL Albumin 3.8 (3.5-5.0) g/dL Lipase 37 (8-78) U/L Urine Color YELLOW Urine Appearance HAZY Urine pH 6.0 (5.0-8.0) Ur Specific [place] 1.025 (1.005-1.025) Urine Protein NEG (NEG-TRACE) MG/DL Urine Glucose (UA) NEG (NEG) MG/DL Urine Ketones >=80 (NEG) MG/DL Urine Blood TRACE (NEG) Urine Nitrite NEG (NEG) Ur Leukocyte Esterase 1+ H (NEG) Urine RBC 0-2 (0) /HPF Urine WBC 0-2 (0-4) /HPF Ur Squamous Epith Cells 2+ /LPF Ur Renal Epithelial Cell 2+ /LPF Urine Bacteria 1+ /LPF Discharge Plan Discharge Clinical Impression: Hyperemesis gravidarum, Acute dehydration Patient Disposition: Home, Self-Care Instructions: Hyperemesis Gravidarum (ED) Additional Instructions: Your blood work was normal. Your urine tests were normal with no evidence for urinary tract infection. Stop taking the Zofran while you are taking Reglan. Take Reglan 10 mg pills, 1 pill every 6 hours as needed for nausea and vomiting. Take Benadryl 25 mg pills, 2 pills when you take Reglan. Take Tylenol (acetaminophen) 500 mg pills, 2 pills every 4 to 6 hours as needed for pain. Follow-up with your doctor in 2 days. Please return to the emergency department if your symptoms get worse or if you develop any symptoms that are concerning to you. Prescriptions: New metoclopramide HCl [Reglan] 10 mg tablet 10 mg PO Q6H PRN (Reason: nausea and vomiting) Qty: 14 RF: 0 No Action ondansetron HCl [Zofran] 4 mg tablet 4 mg PO Q8H PRN (Reason: nausea and vomiting) Qty: 30 RF: 1 [facility] Past Medical History [facility] Narrative: Social history: She denies tobacco, alcohol and drug use Medical History Anemia Hyperemesis Social History Social History Household Members: Spouse and Children Housing: House Alcohol intake: never Patient Tobacco Use Status: Never used Tobacco Trauma History: none Agree to transfusion: Yes Advance Directives: No Advance Directives Information Provided: Yes
[2021-05-21 15:03] LABS: MANUAL DIFF FLAG NO
[2021-05-21 15:06] LABS: Glucose Urine UA NEG (NEG); Leukocyte Esterase Urine 1+ (NEG); Nitrite Urine NEG (NEG); Specific Gravity - Urine 1.025 (1.005-1.025); UACC Culture Trigger YES; Urine Blood TRACE (NEG); Urine Ketones >=80 MG/DL (NEG); Urine Protein NEG (NEG-TRACE)
[2021-05-21] MEDS: 0.9 % Sodium Chloride 1,000 ML 999 ML IV (15:06)
[2021-05-21 15:07] LABS: Appearance Urine HAZY; Color Urine YELLOW
[2021-05-21] MEDS: Metoclopramide HCl 10 MG/2 ML VIAL IVPUSH (15:07)
[2021-05-21] MEDS: diphenhydrAMINE HCL 50 MG/ML VIAL 25 MG IVPUSH (15:07)
[2021-05-21 15:08] LABS: Basophils Percent Auto 0.4 % (0-2); Eosinophils Absolute Auto 0.3 X10*3/uL (0.0-0.4); Eosinophils Percent Auto 3.4 % (0-4); Hematocrit 37.7 % (37-47); Hemoglobin 12.8 g/dl (12.0-16.0); Imm Gran Abs Auto 0.01 X10*3/uL (0.00-0.03); Imm Gran Pct Auto 0.1 % (0.0-0.4); Lymphocytes Absolute Auto 2.1 X10*3/uL (1.2-4.9); Lymphocytes Percent Auto 28.7 % (20-40); Mean Corpuscular Hemoglobin 27.4 pg (27.0-33.0); Mean Corpuscular Volume 80.6 fL (80-98); Mean Platelet Volume 12.3 fL (9.4-12.3); Monocytes Absolute Auto 0.4 X10*3/uL (0.1-1.2); Monocytes Percent Auto 4.7 % (2-11); Neutrophils Absolute Auto 4.7 X10*3/uL (2.0-8.3); Neutrophils Percent Auto 62.7 % (45-73); Platelet Count 185 X10*3/uL (160-400); Red Blood Count 4.68 X10*6/uL (4.20-5.50); Red Cell Distribution Width 12.4 % (11.0-16.0); White Blood Count 7.5 X10*3/uL (4.8-10.8)
[2021-05-21 15:22] LABS: Bacteria Urine 1+ /LPF; RBC Urine 0-2 /HPF (0); Renal Epithelial Cells Urine 2+ /LPF; Squamous Epithelial Cell Urine 2+ /LPF; WBC Urine 0-2 /HPF (0-4)
[2021-05-21 15:42] LABS: Alanine Aminotransferase 13 U/L (0-31); Albumin Level 3.8 g/dL (3.5-5.0); Alkaline Phosphatase 65 U/L (39-117); Anion Gap 16 (12-20); Aspartate Amino Transferase 17 U/L (5-31); Bilirubin Total 0.2 mg/dL (0.0-1.0); Blood Urea Nitrogen 5 mg/dL (9-16); Calcium 9.1 mg/dL (8.4-10.2); Carbon Dioxide 19 mmol/L (22-29); Chloride 104 mmol/L (96-108); Creatinine Clr Calc Pharmacy 134.1; Estimated Glomerular Filt Rate > 60; Glucose Random 81 mg/dL (60-115); Lipase 37 U/L (8-78); Potassium 4.3 mmol/L (3.3-5.1); Sodium 135 mmol/L (135-145); Total Protein 6.9 g/dL (6.5-8.0)
[2021-05-21 17:19] VITALS: BP 121/77; PULSE 67; RESP 16; O2SAT 98
== END 2021-05-21 18:03 | disposition home or self-care (01) ==
PROVIDERS: Emergency Provider Emergency Medicine Emergency Medical Services; PCP Nurse Practitioner Primary Care
DX: O21.0 Mild hyperemesis gravidarum (principal); E86.0 Dehydration; Z3A.11 11 weeks gestation of pregnancy
CPT/HCPCS: 36415; 80053; 81001; 83690; 85025; 87086; 96361; 96374; 96375; 99284; J1200; J2765

== ENCOUNTER 2021-06-17 12:11 | Outpatient (REF) | payer MEDICAID, SELFPAY ==
--- NOTE | ~2021-06-17 | US_ITS ---
EXAMINATION: US OBSTETRICAL CLINICAL INFORMATION: 26-year-old at 18.4 weeks of gestation screening for malformations COMPARISON: 05/06/2021 TECHNIQUE: Real-time transabdominal ultrasound was performed using C1-5 megahertz transducer. FINDINGS: A single, active, fetus is seen in transverse presentation. The placenta is posterior without previa, and the amniotic fluid volume is wnl. MEASUREMENTS: 1. Biparietal Diameter: 3.9 cm; 17.6 wks 2. Occipital Frontal Diameter: 4.84 cm 3. Head Circumference: 14.5 cm; 17.6 wks 4. Abdominal Circumference: 12.4 cm; 18.1 wks 5. Femur Length: 2.7 cm; 18.2 wks 6. Humerus Length: 2.8 cm; 19.0 wks 7. Ulna Length: 2.6 cm; 19.2 wks 8. Lateral ventricle: 0.6 cm 9. Cerebellum: 1.7 cm; 17.6 wks 10. Cisterna Magna: 0.34 cm 11. Nuchal Fold: 2.4 mm 12. Heart Rate: 144 beats per minute Rt ovary: normal Lt ovary: normal Cervical length 4.5 cm on T/A. GESTATIONAL AGE: 1. Established GA: 18.4 wks 2. GA from [facility]: 18.1 wks ESTIMATED DATE OF DELIVERY: 1. Established YOHAN: 11/14/2021 2. YOHAN from [facility]: 11/17/2021 ANATOMY: The visualized anatomy includes but not limited to: 1. Cranium: Normal 2. Intracranial anatomy: cavum septum pellucidi, lateral ventricles, choroid plexus, cerebellum, posterior fossa, third and fourth ventricles. 3. face: orbits, lip/palate, profile, nasal bone 4. Heart: four-chamber view of the heart, ventricular septum, foramen ovale, pulmonary vein, left and right outflow tracts, three-vessel view, 3 vessel trachea view, aortic and ductal arches, situs.. 5. Diaphragm: Normal 6. Abdominal wall: Normal 7. Cord Insertion: Normal 8. Spine: Cervical, thoracic, lumbar, sacral. 9. Stomach: Normal size and shape 10. Right Kidney: Normal 11. Left Kidney: Normal 12. 3 vessel cord: Normal 13. Upper extremity: Open hands, fifth digit. 14. Lower extremity: Tibia, fibula, bilateral feet. 15. Bladder: Normal 16. Genitalia: Female, patient aware US/US OB /maternal detail IMPRESSION: 1. Single, living, intrauterine with appropriate biometry. 2. Normal survey DISCUSSION: I reviewed today's ultrasound findings. We discussed the limitations of ultrasound in diagnosing aneuploidy and other congenital abnormalities. I reviewed the differences between screening test and diagnostic test. Amniocentesis was discussed and declined. She was informed that the baseline incidence of congenital abnormalities is approximately 3-5%. Not all these conditions are diagnosable in utero. RECOMMENDATIONS: 1. Follow-up when necessary. Thank you for allowing me to participate in her care. Total time 20 minutes. The time spent was devoted to counseling the patient about the disease and diagnosis, coordinating care including reviewing her records, pertinent lab data and studies, as well as discussing diagnostic evaluation and workup, plan therapeutic interventions and future disposition of care. This includes any additional research needed to obtain further information in formulating the plan of care of this patient. This note was generated with a voice recognition program. Please excuse any errors which may have been overlooked during my review of this note. Sometimes these errors may affect the content or meaning of a given sentence.
== END 2021-06-17 12:12 | disposition home or self-care (01) ==
LOC: HO.US 12:11
PROVIDERS: Visit Provider Advanced Practice Midwife
DX: Z34.92 Encounter for supervision of normal pregnancy, unspecified, second trimester (principal); Z36.3 Encounter for antenatal screening for malformations; Z3A.18 18 weeks gestation of pregnancy
CPT/HCPCS: 76811; 81003; 99212

== ENCOUNTER → 2021-07-20 09:38 | Outpatient (BNVA) | payer MEDICAID, SELFPAY | PROVIDERS: Visit Provider Advanced Practice Midwife | DX: Z34.82 Encounter for supervision of other normal pregnancy, second trimester (principal); Z3A.23 23 weeks gestation of pregnancy | CPT/HCPCS: 81003; 99212 ==

== ENCOUNTER 2021-08-17 08:13 | Outpatient (REF) | payer MEDICAID, SELFPAY ==
[2021-08-17 11:06] LABS: Hematocrit 35.6 % (37.0-47.0); Hemoglobin 11.6 g/dl (12.0-16.0); Mean Corpuscular HGB Conc 32.6 g/dl (31.0-35.0); Mean Corpuscular Hemoglobin 27.6 pg (27.0-33.0); Mean Corpuscular Volume 84.8 fL (80.0-98.0); Mean Platelet Volume 11.7 fL (9.4-12.3); Platelet Count 216 X10*3/uL (160-400); Red Cell Distribution Width 12.9 % (11.0-16.0); White Blood Count 7.7 X10*3/uL (4.8-10.8)
[2021-08-17 11:26] LABS: Glucose 1 Hour PP 50gm Dose 74 mg/dL (60-140)
[2021-08-17 11:58] LABS: HBsAGNum1 0.14 S/CO (0.00-0.99); HIV AB/AG Nonreactive (Nonreactive); HIV Num 1 0.05 S/CO (0.00-0.99); Hepatitis B Surface Antigen Negative (Negative)
[2021-08-17 12:04] LABS: Syphilis Screen Nonreactive (Nonreactive)
[2021-08-17 12:28] LABS: Amphetamine Screen Urine Not Detected (Not Detect); Barbiturates, Urine Not Detected (Not Detect); Benzodiazepines Screen Urine Not Detected (Not Detect); Cannabinoid Screen Urine Not Detected (Not Detect); Cocaine Screen Urine Not Detected (Not Detect); Fentanyl, urine Not Detected (Not Detect); Opiate Screen Urine Not Detected (Not Detect); Phencyclidine Screen Urine Not Detected (Not Detect); ~HepC Num1 0.11 S/CO (0.00-0.79); ~Hepatitis C Antibody Nonreactive (Nonreactive)
[2021-08-20 10:56] LABS: Rubella IgG Antibody 2.54 Index
== END 2021-08-17 08:14 | disposition home or self-care (01) ==
LOC: HO.LAB 08:13
PROVIDERS: Absent Provider Advanced Practice Midwife; PCP Nurse Practitioner Primary Care; Visit Provider Advanced Practice Midwife
DX: O36.62X1 Maternal care for excessive fetal growth, second trimester, fetus 1 (principal); Z3A.27 27 weeks gestation of pregnancy
CPT/HCPCS: 80307; 81003; 85027; 86762; 86780; 86787; 86803; 86850; 86900; 86901; 87086; 87340; 87389; 99212

== ENCOUNTER 2021-08-19 08:39 | Outpatient (REF) | payer MEDICAID, SELFPAY ==
--- NOTE | ~2021-08-19 | US_ITS ---
EXAMINATION: OBSTETRICAL ULTRASOUND, Follow up HISTORY: 26-year-old at 27.4 weeks of gestation Size date discrepancy COMPARISON: 06/17/2021 TECHNIQUE: Real time transabdominal imaging with color and M-mode Doppler. PRESENTATION: Vertex PLACENTA LOCATION: Posterior without previa AMNIOTIC FLUID: Normal MEASUREMENTS: 1. Biparietal Diameter: 6.8 cm; 27.2 wks 2. Head Circumference: 24.8 cm; 27.0 wks 3. Abdominal Circumference: 22.7 cm; 27.1 wks 4. Femur Length: 5.1 cm; 27.1 wks 5. Heart Rate: 136 beats per minute WEIGHT: EFW: 1025 grams (2 lbs 4 oz) -- 21 %. BIOPHYSICAL PROFILE: Motion: 2 Tone: 2 Breathin Amniotic Fluid: 2 Total score: 8/8 GESTATIONAL AGE: 1. Established GA: 27.4 wks 2. GA from [facility]: 27.1 wks ESTIMATED DATE OF DELIVERY: 1. Established YOHAN: 11/14/2021 2. YOHAN from A: 11/17/2021 US/US OB follow up IMPRESSION: 1. A single active fetus is in vertex presentation 2. Size equals dates 3. Normal amniotic fluid volume Thank you very much for this referral. This note was generated with a voice recognition program. Please excuse any errors which may have been overlooked during my review of this note. Sometimes these errors may affect the content or meaning of a given sentence.
== END 2021-08-19 08:40 | disposition home or self-care (01) ==
LOC: HO.US 08:39
PROVIDERS: PCP Nurse Practitioner Primary Care; Visit Provider Advanced Practice Midwife
DX: O36.62X0 Maternal care for excessive fetal growth, second trimester, not applicable or unspecified (principal)
CPT/HCPCS: 76816

== ENCOUNTER → 2021-09-02 08:32 | Outpatient (BNVA) | payer MEDICAID, SELFPAY | PROVIDERS: Visit Provider Advanced Practice Midwife | DX: O99.013 Anemia complicating pregnancy, third trimester (principal); O21.0 Mild hyperemesis gravidarum; O09.33 Supervision of pregnancy with insufficient antenatal care, third trimester; Z3A.29 29 weeks gestation of pregnancy; Z67.40 Type O blood, Rh positive; Z83.3 Family history of diabetes mellitus; Z91.041 Radiographic dye allergy status; Z79.899 Other long term (current) drug therapy | CPT/HCPCS: 99212 ==

== ENCOUNTER → 2021-09-23 08:56 | Outpatient (BNVA) | payer MEDICAID, SELFPAY | PROVIDERS: Visit Provider Advanced Practice Midwife | DX: Z34.83 Encounter for supervision of other normal pregnancy, third trimester (principal); Z3A.32 32 weeks gestation of pregnancy | CPT/HCPCS: 81003; 90471; 90686; 90715; 99212 ==

== ENCOUNTER 2022-01-12 17:38 | Emergency (ER) | payer MEDICAID, SELFPAY ==
--- NOTE | 2022-01-12 | ECG_ITS ---
Test Reason : chest pain Blood Pressure : / mmHG Vent. Rate : 071 BPM Atrial Rate : 071 BPM P-R Int : 138 ms QRS Dur : 082 ms QT Int : 380 ms P-R-T Axes : 024 008 018 degrees QTc Int : 412 ms Normal sinus rhythm Normal ECG No significant changes when compared with the previous EKG of 12 january 2022. Referred By: Generic ED Physician Electronically Signed By:DIONISIO KABA
--- NOTE | ~2022-01-12 | XR_ITS ---
EXAMINATION: XR CHEST CLINICAL INFORMATION: Chest pain. COMPARISON: Chest radiograph dated from 08/16/2020. TECHNIQUE: PA view of the chest was obtained. FINDINGS: Normal appearance of the cardiomediastinal silhouette. No focal airspace opacities, pleural effusions or pneumothorax. No acute osseous abnormalities. The visualized upper abdomen is within normal limits. XR/XR chest 1V IMPRESSION: No acute cardiopulmonary findings.
--- NOTE | 2022-01-12 17:44 | ECG_ITS ---
Test Reason : chest pain Blood Pressure : / mmHG Vent. Rate : 068 BPM Atrial Rate : 288 BPM P-R Int : 000 ms QRS Dur : 078 ms QT Int : 382 ms P-R-T Axes : 024 010 018 degrees QTc Int : 406 ms Artifact in tracing Normal sinus rhythm Normal ECG When compared with ECG of 16-AUG-2020 14:33, No significant changes seen Referred By: Generic ED Physician Electronically Signed By:DIONISIO KABA
[2022-01-12 18:44] VITALS: BP 109/64; PULSE 74; RESP 18; TEMP 36; O2SAT 98; BMI 32.9
[2022-01-12 20:48] VITALS: BP 108/49; PULSE 76; RESP 18; TEMP 36.6; O2SAT 97
[2022-01-12 21:09] LABS: MANUAL DIFF FLAG NO
[2022-01-12 21:10] LABS: Basophils Percent Auto 0.3 % (0-2); Eosinophils Absolute Auto 0.3 X10*3/uL (0.0-0.4); Eosinophils Percent Auto 3.6 % (0-4); Hematocrit 34.7 % (37.0-47.0); Hemoglobin 11.3 g/dl (12.0-16.0); Imm Gran Abs Auto 0.02 X10*3/uL (0.00-0.03); Imm Gran Pct Auto 0.3 % (0.0-0.4); Lymphocytes Percent Auto 41.6 % (20-40); Mean Corpuscular HGB Conc 32.6 g/dl (31.0-35.0); Mean Corpuscular Hemoglobin 26.7 pg (27.0-33.0); Mean Corpuscular Volume 81.8 fL (80.0-98.0); Mean Platelet Volume 11.3 fL (9.4-12.3); Monocytes Absolute Auto 0.5 X10*3/uL (0.1-1.2); Monocytes Percent Auto 7.1 % (2-11); Neutrophils Absolute Auto 3.4 x10*3/uL (2.0-8.3); Neutrophils Percent Auto 47.1 % (45-73); Platelet Count 257 X10*3/uL (160-400); Red Blood Count 4.24 X10*6/uL (4.20-5.50); Red Cell Distribution Width 15.7 % (11.0-16.0); White Blood Count 7.3 X10*3/uL (4.8-10.8)
--- NOTE | 2022-01-12 21:18 | ED_ITS ---
HPI - Chest Pain General Chief Complaint: Chest Pain Stated Complaint: chest pain/ l arm Time Seen by Provider: 01/12/22 21:18 Source: patient Mode of arrival: ambulatory History of Present Illness HPI narrative: 26-year-old female without significant past medical history, but noted to be currently who presents with onset of sharp upper left chest wall pain that is constant in nature and patient reports radiates into the left shoulder, rated as a 4/10, without associated headache/dizziness /shortness of breath/nausea/ diaphoresis and denies any recent sore throat, cough. Patient did take any analgesics for this and states that the pain has increased to an 8/10, denies any is radiation with respiration but does worsen with opening the chest up with her left arm towards her back. Otherwise, no history of fever, chills and patient denies any GI or symptoms. She does report a positive family history her mom having a stroke at the age of 3636 years old for unknown reasons. Related Data Home Medications Medication Instructions Recorded Confirmed prenat.vits,quinton,ckz-yvrb-wtgic 1 tab PO DAILY 07/20/21 09/23/21 Previous Rx's Medication Instructions Recorded ondansetron HCl 4 mg tablet 4 mg PO Q8H PRN #30 tab 05/10/21 (Zofran) metoclopramide HCl 10 mg tablet 10 mg PO Q6H PRN #14 tab 05/21/21 (Reglan) miconazole nitrate 2 % vaginal 1 appful VAGINAL BEDTIME 7 Days 07/20/21 cream (Miconazole-7) #45 g Allergies Allergy/AdvReac Type Severity Reaction Status Date / Time Iodinated Contrast Media Allergy Unknown HIVES Verified 01/12/22 18:43 [IV DYE, IODINE CONTAINING CONTRAST ] Review of Systems Review of Systems: Pertinent positives and negatives as stated in HPI 10 point review of systems is otherwise negative. [facility] Past Medical History Source: nursing notes reviewed Medical History Anemia Hyperemesis Social History Social History Household Members: Spouse and Children Housing: House Alcohol intake: unknown Patient Tobacco Use Status: Never used Tobacco Use of substances other than those prescribed or required for medical reasons: Unknown Trauma History: none Agree to transfusion: Yes Advance Directives: No Advance Directives Information Provided: No Patient : No Physical Exam Vital Signs: Vital Signs: Last Vital Signs Temp 97.9 F 01/12/22 20:48 Pulse 76 01/12/22 20:48 Resp 18 01/12/22 20:48 BP 108/49 L 01/12/22 20:48 Pulse Ox 97 01/12/22 20:48 BMI result Body Mass Index 32.9 VITAL SIGNS: Reviewed. GENERAL: Well developed, well nourished, in no acute distress. HEAD: Normocephalic/atraumatic EYES: PERRLA, EOMI EARS: Ext canals without abnormality NOSE: Nares patent bilateral OROPHARYNX: no oral lesions noted, posterior pharynx clear LUNGS: Normal breath sounds. No adventitious sounds or accessory muscle use. SpO2<97> CARDIOVASCULAR: Regular rate and rhythm without noted murmurs ABDOMEN: Soft, non-tender, non-distended with bowel sounds. SKIN: Inspection of the skin reveals no rashes NEUROLOGIC: Alert and oriented x 4. Strength and sensation to light touch were grossly intact x 4. Course Course Course Narrative: 26-year-old female with history and clinical presentation most consistent with musculoskeletal, possibly costochondritis but doubt cardiopulmonary etiology or acid reflux. Although patient is currently symptoms and history are inconsistent with a mastitis. perc negative. Review of all investigations negative for acute findings, all results discussed with patient at bedside and she was provided with combination analgesics and she is aware that we are treating presumptively for a costochondritis/ musculoskeletal pain. Otherwise, patient is discharged home in stable condition. MDM - Chest Pain Lab Data Result diagrams: 01/12/22 21:04 01/12/22 21:04 Labs: Lab Results 01/12/22 01/12/22 01/12/22 Range/Units 21:04 21:04 21:04 WBC 7.3 (4.8-10.8) X10*3/uL RBC 4.24 (4.20-5.50) X10*6/uL Hgb 11.3 L (12.0-16.0) g/dl Hct 34.7 L (37.0-47.0) % MCV 81.8 (80.0-98.0) fL MCH 26.7 L (27.0-33.0) pg MCHC 32.6 (31.0-35.0) g/dl RDW 15.7 (11.0-16.0) % Plt Count 257 (160-400) X10*3/uL MPV 11.3 (9.4-12.3) fL Immature Gran % (Auto) 0.3 (0.0-0.4) % Neut % (Auto) 47.1 (45-73) % Lymph % (Auto) 41.6 H (20-40) % [place] % (Auto) 7.1 (2-11) % Eos % (Auto) 3.6 (0-4) % Baso % (Auto) 0.3 (0-2) % Lymph # (Auto) 3.0 (1.2-4.9) X10*3/uL [place] # (Auto) 0.5 (0.1-1.2) X10*3/uL Eos # (Auto) 0.3 (0.0-0.4) X10*3/uL Baso # (Auto) 0.0 (0.0-0.2) X10*3/uL Abs Immat Gran (auto) 0.02 (0.00-0.03) X10*3/uL Absolute Neuts (auto) 3.4 (2.0-8.3) x10*3/uL Absolute Nucleated RBC 0.000 (0.0-0.012) X10*3/uL Nucleated RBC % (auto) 0.0 (0.0-0.2) /100WBC Sodium 138 (135-145) mmol/L Potassium 4.3 (3.3-5.1) mmol/L Chloride 106 (96-108) mmol/L Carbon Dioxide 25 (22-29) mmol/L Anion Gap 11 L (12-20) BUN 13 (9-16) mg/dL Creatinine 0.77 (0.5-1.4) mg/dL Estim Creat Clear Calc 107.7 Estimated GFR > 60 Random Glucose 102 (60-115) mg/dL Calcium 9.5 (8.4-10.2) mg/dL Troponin I High Sens < 3.5 (<3.5-17.0) ng/L ECG Data ECG #1: Attestation: I personally reviewed and interpreted this ECG as follows: Prior ECG tracings: available for review ( No acute changes on comparison) Interpretation: NSR, HR -68, no STEMI, OR/ QRS /QTC are within normal limits. Discharge Plan Discharge Clinical Impression: Atypical chest pain, Costochondritis Patient Disposition: Home, Self-Care Instructions: Costochondritis (ED), Chest Wall Pain (ED) Additional Instructions: 1. Tylenol 1000 mg, orally, every 6 hours as needed for pain control. Do not exceed 4000 mg within 24 hours. 2. Ibuprofen 400 mg, orally with milk or food, every 6 hours as needed for pain control. 3. Lidocaine patch, apply to area of maximal tenderness as directed on the outside packaging. 4. Follow-up with your primary care provider next 2-3 days for re-evaluation further outpatient management. Return to the ER for worsening symptoms. Prescriptions: No Action metoclopramide HCl [Reglan] 10 mg tablet 10 mg PO Q6H PRN (Reason: nausea and vomiting) Qty: 14 0RF ondansetron HCl [Zofran] 4 mg tablet 4 mg PO Q8H PRN (Reason: nausea and vomiting) Qty: 30 1RF prenat.vits,quinton,[id number]-xcber Tablet 1 tab PO DAILY 0RF miconazole nitrate [Miconazole-7] 2 % cream 1 appful vaginal BEDTIME 7 Days Qty: 45 2RF Referrals: Cristina Castaneda, ENVIRONMENTAL PERMITTING SPECIALIST [Primary Care Provider] - 2 days
[2022-01-12 21:24] LABS: Anion Gap 11 (12-20); Blood Urea Nitrogen 13 mg/dL (9-16); Calcium 9.5 mg/dL (8.4-10.2); Carbon Dioxide 25 mmol/L (22-29); Chloride 106 mmol/L (96-108); Creatinine Clr Calc Pharmacy 107.7; Estimated Glomerular Filt Rate > 60; Glucose Random 102 mg/dL (60-115); Potassium 4.3 mmol/L (3.3-5.1); Sodium 138 mmol/L (135-145)
[2022-01-12 21:30] LABS: Troponin-I High Sensitivity < 3.5 ng/L (<3.5-17.0)
[2022-01-12] MEDS: Acetaminophen 325 MG TABLET 975 MG PO (22:34)
[2022-01-12] MEDS: Ketorolac Tromethamine 15 MG/ML VIAL IM (22:35)
[2022-01-12] MEDS: Lidocaine 4 % Patch ADH..PATCH 1 PATCH TRANSDERMA (22:36)
== END 2022-01-12 22:39 | disposition home or self-care (01) ==
PROVIDERS: Emergency Provider Student in an Organized Health Care Education/Training Program; PCP Nurse Practitioner Primary Care
DX: R07.89 Other chest pain (principal); M94.0 Chondrocostal junction syndrome [Tietze]
CPT/HCPCS: 36415; 71045; 80048; 84484; 85025; 93005; 96372; 99284; 99285; J1885

== ENCOUNTER 2022-03-31 16:46 | Emergency (ER) | payer MEDICAID, SELFPAY ==
[2022-03-31 16:48] VITALS: BP 109/66; PULSE 57; RESP 16; TEMP 36.6; O2SAT 100; BMI 31.0
--- NOTE | 2022-03-31 17:33 | ED.HA ---
HPI - Headache General Chief Complaint: Headache Stated Complaint: headaches/dizziness Time Seen by Provider: 03/31/22 17:22 Source: patient Mode of arrival: ambulatory Limitations: no limitations History of Present Illness HPI Narrative: 26-year-old female with a history of migraines presents to the ER with a posterior headache for the last 2 days. No trauma or injury. No weakness, numbness, tingling or vision changes. She reports it is throbbing in nature and feels different than her usual migraines. She has some light sensitivity but no sound sensitivity. No fever or neck pain. She took tylenol 500 mg with no relief. MD elicited complaint: headache Pertinent past history: migraines Onset (ago): day(s) (2) Onset description: gradually Location: occipital Severity: moderate Pain scale (0-10): 7 Quality & Timing: throbbing Exacerbating factors: none Relieving factors: nothing Context: occurred at rest Associated symptoms: none Treatments prior to arrival: acetaminophen Related Data Home Medications Medication Instructions Recorded Confirmed prenat.vits,quinton,ull-mdkx-wtjxp 1 tab PO DAILY 07/20/21 09/23/21 Previous Rx's Medication Instructions Recorded ondansetron HCl 4 mg tablet 4 mg PO Q8H PRN nausea and 05/10/21 (Zofran) vomiting #30 tabs metoclopramide HCl 10 mg tablet 10 mg PO Q6H PRN nausea and 05/21/21 (Reglan) vomiting #14 tabs miconazole nitrate 2 % vaginal 1 appful vaginal BEDTIME 7 days 07/20/21 cream (Miconazole-7) #45 grams imbpkxghej-erarudirzynqj-dovppush 1 cap PO Q8H PRN headache #14 caps 03/31/22 50 mg-300 mg-40 mg capsule (Fioricet) ibuprofen 600 mg tablet 600 mg PO Q8H PRN pain #20 tabs 03/31/22 Allergies Allergy/AdvReac Type Severity Reaction Status Date / Time Iodinated Contrast Media Allergy Unknown HIVES Verified 01/12/22 18:43 [IV DYE, IODINE CONTAINING CONTRAST ] Review of Systems Review of Systems: Constitutional: No Fever, No Chills ENT/Mouth: No sore throat, No Rhinorrhea Eyes: No Eye Pain, No vision changes Cardiovascular: No Chest Pain, No SOB, No Orthopnea, No Edema Respiratory: No Cough, No Sputum, No Wheezing, No dyspnea Gastrointestinal: No Nausea, No Vomiting, No Diarrhea, No abdominal Pain Musculoskeletal: No joint pain, No Myalgias Skin: No Skin Lesions, No rash Neuro: No Weakness, No Numbness, + Dizziness, + Headache Psych: No Anxiety/Panic, No Depression Heme/Lymph: No Lymphadenopathy En PMFSH Past Medical History Medical History Anemia Hyperemesis Social History Social History Household Members: Spouse and Children Housing: House Alcohol intake: unknown Patient Tobacco Use Status: Never used Tobacco Trauma History: none Agree to transfusion: Yes Advance Directives: No Advance Directives Information Provided: No Physical Exam Vital Signs: Vital Signs: Last Vital Signs Temp 97.8 F 03/31/22 16:48 Pulse 57 03/31/22 16:48 Resp 16 03/31/22 16:48 BP 109/66 03/31/22 16:48 Pulse Ox 100 03/31/22 16:48 O2 Del Method 03/31/22 16:48 BMI result Body Mass Index 31.0 Appearance: Alert. Oriented X3. No acute distress. Eyes: Pupils equal, round and reactive to light. EOMI, no nystagumus ENT: Pharynx normal. Neck: Normal inspection. Neck supple. No nuchal rigidity CVS: Normal heart rate and rhythm. Pulses normal. Respiratory: No respiratory distress. Breath sounds normal. Abdomen: Soft and nontender. +BS x4 Skin: Skin warm and dry. Normal skin color. Normal skin turgor. No rashes. Extremities: No lower extremity edema. Neuro: Oriented X 3. No motor deficit. No sensory deficit. CN II-XII intact. steady gait Course Course Course Narrative: [age] year female presents to the ER with 2 days of posterior headache. No neuro symptoms. She took low-dose Tylenol with no relief. Will treat with subcu Imitrex given her history of migraines. Will test for COVID. Will reassess. Reevaluation(s) Reevaluation #1: COVID negative. Patient is feeling better. She is stable for discharge home. MDM - Headache Lab Data Labs: Lab Results 03/31/22 Range/Units 17:28 COVID-19 (PADDY) Negative (Negative) COVID-19 Clin Com See Note Discharge Plan Discharge Clinical Impression: Headache Patient Disposition: Home, Self-Care Instructions: General Headache (ED) Additional Instructions: You are negative for COVID-19. Take the prescribed medications as needed for headache. Rest and stay hydrated, drink plenty of water. Follow-up with your doctor for further evaluation as needed. If you develop new or worsening symptoms call 911 or come back to the ER for further evaluation. Prescriptions: New ibuprofen 600 mg tablet 600 mg PO Q8H PRN (Reason: pain) Qty: 20 0RF ndsoqrgyrj-jpuabdshkzluj-vghs [Fioricet] 50-300-40 mg capsule 1 cap PO Q8H PRN (Reason: headache) Qty: 14 0RF No Action metoclopramide HCl [Reglan] 10 mg tablet 10 mg PO Q6H PRN (Reason: nausea and vomiting) Qty: 14 0RF ondansetron HCl [Zofran] 4 mg tablet 4 mg PO Q8H PRN (Reason: nausea and vomiting) Qty: 30 1RF prenat.vits,quinton,gdo-fjel-hqjzv Tablet 1 tab PO DAILY miconazole nitrate [Miconazole-7] 2 % cream 1 appful vaginal BEDTIME 7 Days Qty: 45 2RF
[2022-03-31] MEDS: SUMAtriptan succinate 6 MG/0.5 ML VIAL SUBCUT (17:46)
[2022-03-31 17:50] LABS: COVID-19 Test Negative (Negative)
[2022-03-31 18:31] VITALS: BP 106/60; PULSE 58; RESP 18; TEMP 36.1
== END 2022-03-31 18:50 | disposition home or self-care (01) ==
PROVIDERS: Physician Assistant; Emergency Provider Emergency Medicine; PCP Nurse Practitioner Primary Care
DX: R51.9 Headache, unspecified (principal); Z20.822 Contact with and (suspected) exposure to COVID-19
CPT/HCPCS: 87635; 96372; 99284; J3030

== ENCOUNTER 2022-08-02 08:43 | Outpatient (REF) | payer MEDICAID, SELFPAY ==
[2022-08-02 11:51] LABS: Free T4 (Free Thyroxine) 1.05 ng/dL (0.71-1.85); Thyroid Stimulating Hormone 2.74 uIU/mL (0.32-4.0)
[2022-08-07 13:03] LABS: Thyroid Peroxidase Antibodies >900 IU/mL (<9)
== END 2022-08-02 08:44 | disposition home or self-care (01) ==
LOC: HO.LAB 08:43
PROVIDERS: PCP Nurse Practitioner Primary Care; Visit Provider Internal Medicine Endocrinology, Diabetes & Metabolism
DX: E03.9 Hypothyroidism, unspecified (principal)
CPT/HCPCS: 36415; 84439; 84443; 86376; 99202

== ENCOUNTER 2022-10-03 17:11 | Outpatient (REF) | payer MEDICAID, SELFPAY ==
[2022-10-03 18:34] LABS: Free T4 (Free Thyroxine) 0.91 ng/dL (0.71-1.85); Thyroid Stimulating Hormone 5.05 uIU/mL (0.32-4.0)
== END 2022-10-03 17:12 | disposition home or self-care (01) ==
LOC: HO.LAB 17:11
PROVIDERS: PCP Nurse Practitioner Primary Care; Visit Provider Internal Medicine Endocrinology, Diabetes & Metabolism
DX: E03.9 Hypothyroidism, unspecified (principal)
CPT/HCPCS: 36415; 84439; 84443

== ENCOUNTER → 2022-11-09 08:49 | Outpatient (BNVA) | payer MEDICAID, SELFPAY | PROVIDERS: PCP Nurse Practitioner Primary Care; Visit Provider Internal Medicine Endocrinology, Diabetes & Metabolism | DX: E03.9 Hypothyroidism, unspecified (principal) | CPT/HCPCS: 99212 ==

== ENCOUNTER 2023-04-03 09:25 | Outpatient (REF) | payer MEDICAID, SELFPAY ==
[2023-04-03 11:22] LABS: Free T4 (Free Thyroxine) 0.97 ng/dL (0.71-1.85); Thyroid Stimulating Hormone 4.55 uIU/mL (0.32-4.0)
== END 2023-04-03 09:26 | disposition home or self-care (01) ==
LOC: HO.LAB 09:25
PROVIDERS: PCP Nurse Practitioner Primary Care; Visit Provider Internal Medicine Endocrinology, Diabetes & Metabolism
DX: E03.9 Hypothyroidism, unspecified (principal)
CPT/HCPCS: 36415; 84439; 84443

== ENCOUNTER 2023-07-12 18:04 | Emergency (ER) | payer MEDICAID, SELFPAY ==
[2023-07-12 18:12] VITALS: BP 123/88; PULSE 69; RESP 18; TEMP 36.2; O2SAT 100; BMI 33.9
--- NOTE | 2023-07-12 18:15 | ED.GENADULT ---
HPI - General Adult General Chief complaint: Abdominal Pain Stated complaint: lower abdominal pain Time Seen by Provider: 07/12/23 20:42 Source: patient, RN notes reviewed and old records reviewed Mode of arrival: ambulatory Limitations: no limitations History of Present Illness HPI narrative: 28-year-old female presents for evaluation of 2 days of lower abdominal pain. Her pain is generalized across the entire lower abdomen. She reports a history of tubal ligation but no other abdominal surgeries. She reports some nausea without vomiting. Her last bowel movement was this morning and was ?normal. ? Denies any burning with urination, urinary frequency. Denies any vaginal bleeding or discharge Related Data Home Medications Medication Instructions Recorded Confirmed acetaminophen 325 mg tablet 650 mg PO Q4H PRN pain 08/02/22 11/09/22 Previous Rx's Medication Instructions Recorded miconazole nitrate 2 % vaginal 1 appful vaginal BEDTIME 7 days 07/20/21 cream (Miconazole-7) #45 grams fifrxdscoh-tvrxndkfhsozv-jyqeotwr 1 cap PO Q8H PRN headache #14 caps 03/31/22 50 mg-300 mg-40 mg capsule (Fioricet) ibuprofen 600 mg tablet 600 mg PO Q8H PRN pain #20 tabs 03/31/22 levothyroxine 175 mcg tablet 175 mcg PO DAILY #90 tabs 04/02/23 nitrofurantoin 100 mg PO Q12H 5 days #10 caps 07/12/23 monohydrate/macrocrystals 100 mg capsule (Macrobid) phenazopyridine 200 mg tablet 200 mg PO TID 6 doses #6 tabs 07/12/23 (Pyridium) Allergies Allergy/AdvReac Type Severity Reaction Status Date / Time Iodinated Contrast Media Allergy Unknown HIVES Verified 07/12/23 18:12 [IV DYE, IODINE CONTAINING CONTRAST ] metronidazole [From Flagyl] Allergy Unknown Itching Verified 07/12/23 18:12 Review of Systems Constitutional: Constitutional: Denies chills and Denies fever(s) Cardiovascular: Cardiovascular: Denies chest pain and Denies dyspnea Respiratory: Respiratory: Denies cough and Denies dyspnea Gastrointestinal: Gastrointestinal: Reports abdominal pain, Denies melena, Denies hematochezia, Denies change in stool character, Denies diarrhea, Reports nausea and Denies vomiting Genitourinary: Genitourinary: Denies difficulty voiding and Denies vaginal discharge Musculoskeletal: Musculoskeletal: Denies back pain Integumentary/Breasts: Skin/Breast: Denies rash PMFSH Past Medical History Medical History (Updated 07/13/23 @ 00:01 by Raisa Baez) Hypothyroid Hyperemesis Anemia Surgical History History of tubal ligation Family History Family History (Updated 11/09/22 @ 08:57 by LISA Jackson) Sister Family history of thyroid problem Social History Social History Household Members: Spouse and Children Housing: House Alcohol intake: unknown Patient Tobacco Use Status: Never used Tobacco Smoked in Last 30 Days: No Trauma History: none Agree to transfusion: Yes Advance Directives: No Advance Directives Information Provided: No Patient : No Physical Exam ED Vital Signs: Vital Signs - 24 hr 07/12/23 18:12 07/12/23 20:45 Temperature 97.2 F 98.2 F Pulse Rate 69 62 Respiratory Rate 18 17 Blood Pressure 123/88 106/68 Pulse Oximetry 100 98 Oxygen Delivery Method Room Air Room Air BMI result Body Mass Index 33.9 Const General: healthy appearing, comfortable, no acute distress, alert and awake Nutritional Appearance: well nourished Orientation/consciousness: patient oriented x3 HENMT Head: Yes normocephalic and Yes atraumatic Eyes Eyelids: Yes eyelids normal Conjunctivae: conjunctivae normal Sclerae: sclerae normal Corneas: corneas normal Pupils: Equal, round and reactive pupils present EOM: EOMs intact bilaterally Neck Neck: Yes full ROM Resp Effort & Inspection: normal respiratory effort, able to speak in complete sentences and not labored Cardio Rate: regular rate Rhythm: regular rhythm GI Inspection: No distended Palpation (GI): Soft to palpation, not firm, nontender, no guarding and not rigid Skin General skin exam: no rashes or lesions noted and elasticity normal Neuro General: patient oriented x3 Cranial nerves: Yes Equal, round and reactive pupils present and Yes Bilaterally intact EOM present Cognition (Neuro): normal cognition Extrem Other: Moving all extremities well without any obvious deformities Course Course Course Narrative: RME: 28 yold female presents to the ED for bilateral lower abdominal pain since yesterday. patient states no symptosm. labs ordered Medical Decision Making Medical Decision Making [facility] Narrative: 28-year-old female presents for evaluation of lower abdominal pain. She is not . Denies any urinary complaints or vaginal complaints. She has some nausea without vomiting. No radiation of her pain. She has been having normal bowel movements. Low suspicion for obstruction. Patient is nontender on exam and she does not have a leukocytosis. Less likely to be acute appendicitis. Patient's UA appears infected and symptoms are most consistent with a simple urinary tract infection, we will treat with Macrobid and Pyridium Differential Diagnosis Differential Diagnoses: The differential diagnosis associated with the presentation includes UTI Cystitis Obstructive uropathy Ovarian cyst Uterine fibroids Constipation Acute appendicitis less likely Lab Data [facility] Lab Attestation statement: I reviewed the patient's lab results. No leukocytosis, no anemia, no electrolyte abnormalities. Normal renal function. UA has esterase, bacteria and white cells indicative of a UTI 07/12/23 18:23 07/12/23 18:23 Labs: Lab Results 07/12/23 07/12/23 Range/Units 18:23 19:21 WBC 10.8 (4.8-10.8) X10*3/uL RBC 4.73 (4.20-5.50) X10*6/uL Hgb 12.6 (12.0-16.0) g/dl Hct 38.7 (37.0-47.0) % MCV 81.8 (80.0-98.0) fL MCH 26.6 L (27.0-33.0) pg MCHC 32.6 (31.0-35.0) g/dl RDW 12.4 (11.0-16.0) % Plt Count 252 (160-400) X10*3/uL MPV 11.5 (9.4-12.3) fL Immature Gran % (Auto) 0.3 (0.0-0.4) % Neut % (Auto) 40.3 L (45-73) % Lymph % (Auto) 53.1 H (20-40) % [place] % (Auto) 4.5 (2-11) % Eos % (Auto) 1.4 (0-4) % Baso % (Auto) 0.4 (0-2) % Lymph # (Auto) 5.7 H (1.2-4.9) X10*3/uL [place] # (Auto) 0.5 (0.1-1.2) X10*3/uL Eos # (Auto) 0.2 (0.0-0.4) X10*3/uL Baso # (Auto) 0.0 (0.0-0.2) X10*3/uL Abs Immat Gran (auto) 0.03 (0.00-0.03) X10*3/uL Absolute Neuts (auto) 4.4 (2.0-8.3) x10*3/uL Absolute Nucleated RBC 0.000 (0.0-0.012) X10*3/uL Nucleated RBC % (auto) 0.0 (0.0-0.2) /100WBC Smear Tech's Comments VERIFIED Sodium 140 (135-145) mmol/L Potassium 3.4 D (3.3-5.1) mmol/L Chloride 106 (96-108) mmol/L Carbon Dioxide 23 (22-29) mmol/L Anion Gap 14 (12-20) BUN 13 (9-16) mg/dL Creatinine 0.84 (0.5-1.4) mg/dL Estim Creat Clear Calc 106.1 Estimated GFR > 60 Random Glucose 87 (60-115) mg/dL Calcium 9.2 (8.4-10.2) mg/dL Total Bilirubin 0.2 (0.0-1.0) mg/dL AST 17 (5-31) U/L ALT 21 (0-31) U/L Alkaline Phosphatase 88 (39-117) U/L Total Protein 7.2 (6.5-8.0) g/dL Albumin 4.0 (3.5-5.0) g/dL Beta HCG, Quant < 2 mIU/mL Urine Color Yellow Urine Appearance Clear Urine pH 5.5 (5.0-9.0) Ur Specific [place] 1.020 (1.005-1.025) Urine Protein Negative (Neg-Trace) mg/dL Urine Glucose (UA) Negative (Negative) mg/dL Urine Ketones Negative (Negative) mg/dL Urine Blood Negative (Negative) Urine Nitrite Negative (Negative) Ur Leukocyte Esterase Small (1+) H (Negative) Urine RBC 0-2 (0-2) /HPF Urine WBC 6-10 H (0-5) /HPF Ur Squamous Epith Cells 11-20 (0-2) /HPF Urine Bacteria 1+ (None Seen) Hyaline Casts 0-2 (0-2) /LPF Urine Test NEGATIVE (NEGATIVE) Discharge Plan Discharge Clinical Impression: Urinary tract infection Patient Disposition: Home, Self-Care Instructions: Urinary Tract Infection in Women (ED) Additional Instructions: Your urine is consistent with a urinary tract infection. Take Macrobid twice daily for the next 5 days. Use Pyridium as directed. Drink lots of fluids Return for new or worsening symptoms, especially if her pain is worsening, or if you develop a fever or unable to tolerate your antibiotics due to the nausea or vomiting Prescriptions: New phenazopyridine [Pyridium] 200 mg tablet 200 mg PO TID Qty: 6 0RF nitrofurantoin monohyd/m-cryst [Macrobid] 100 mg capsule 100 mg PO Q12H 5 Days Qty: 10 0RF Rx Instructions: must administer with a meal/food No Action levothyroxine 175 mcg tablet 175 mcg PO DAILY Qty: 90 1RF ibuprofen 600 mg tablet 600 mg PO Q8H PRN (Reason: pain) Qty: 20 0RF rsimxcjqpt-jtpxscwdilrge-rmhq [Fioricet] 50-300-40 mg capsule 1 cap PO Q8H PRN (Reason: headache) Qty: 14 0RF miconazole nitrate [Miconazole-7] 2 % cream 1 appful vaginal BEDTIME 7 Days Qty: 45 2RF acetaminophen 325 mg tablet 650 mg PO Q4H PRN (Reason: pain) Interventions: ED Discharge Assessment Last Done: 07/12/23 20:55 Discharge Date/Time: 07/12/23 20:58
[2023-07-12 18:48] LABS: Alanine Aminotransferase 21 U/L (0-31); Alkaline Phosphatase 88 U/L (39-117); Anion Gap 14 (12-20); Aspartate Amino Transferase 17 U/L (5-31); Bilirubin Total 0.2 mg/dL (0.0-1.0); Blood Urea Nitrogen 13 mg/dL (9-16); Calcium 9.2 mg/dL (8.4-10.2); Carbon Dioxide 23 mmol/L (22-29); Chloride 106 mmol/L (96-108); Creatinine Clr Calc Pharmacy 106.1; Estimated Glomerular Filt Rate > 60; Glucose Random 87 mg/dL (60-115); Potassium 3.4 mmol/L (3.3-5.1); Sodium 140 mmol/L (135-145); Total Protein 7.2 g/dL (6.5-8.0)
[2023-07-12 18:50] LABS: Basophils Percent Auto 0.4 % (0-2); Eosinophils Absolute Auto 0.2 X10*3/uL (0.0-0.4); Eosinophils Percent Auto 1.4 % (0-4); Hematocrit 38.7 % (37.0-47.0); Hemoglobin 12.6 g/dl (12.0-16.0); Imm Gran Abs Auto 0.03 X10*3/uL (0.00-0.03); Imm Gran Pct Auto 0.3 % (0.0-0.4); Lymphocytes Absolute Auto 5.7 X10*3/uL (1.2-4.9); Lymphocytes Percent Auto 53.1 % (20-40); MANUAL DIFF FLAG SCAN; Mean Corpuscular HGB Conc 32.6 g/dl (31.0-35.0); Mean Corpuscular Hemoglobin 26.6 pg (27.0-33.0); Mean Corpuscular Volume 81.8 fL (80.0-98.0); Mean Platelet Volume 11.5 fL (9.4-12.3); Monocytes Absolute Auto 0.5 X10*3/uL (0.1-1.2); Monocytes Percent Auto 4.5 % (2-11); Neutrophils Absolute Auto 4.4 x10*3/uL (2.0-8.3); Neutrophils Percent Auto 40.3 % (45-73); Platelet Count 252 X10*3/uL (160-400); Red Blood Count 4.73 X10*6/uL (4.20-5.50); Red Cell Distribution Width 12.4 % (11.0-16.0); SCAN SMEAR FLAG 1; White Blood Count 10.8 X10*3/uL (4.8-10.8)
[2023-07-12 18:52] LABS: HCG Quantitative < 2 mIU/mL
[2023-07-12 19:12] LABS: SLIDE REVIEW VERIFIED
[2023-07-12 19:41] LABS: Appearance Urine Clear; Color Urine Yellow; Glucose Urine UA Negative (Negative); Leukocyte Esterase Urine Small (1+) (Negative); Nitrite Urine Negative (Negative); PH 5.5 (5.0-9.0); UMIC TRIGGER UACC YES; Urine Blood Negative (Negative); Urine Ketones Negative (Negative); Urine Protein Negative (Neg-Trace)
[2023-07-12 19:42] LABS: UPreg QC Valid YES; Urine Pregnancy NEGATIVE (NEGATIVE)
[2023-07-12 19:44] LABS: Bacteria Urine 1+ (None Seen); Hyaline Casts Urine 0-2 /LPF (0-2); RBC Urine 0-2 /HPF (0-2); UACC Culture Trigger YES
[2023-07-12 20:45] VITALS: BP 106/68; PULSE 62; RESP 17; TEMP 36.8; O2SAT 98
== END 2023-07-12 20:58 | disposition home or self-care (01) ==
PROVIDERS: Physician Assistant; Emergency Provider Emergency Medicine Emergency Medical Services; PCP Nurse Practitioner Primary Care
DX: N39.0 Urinary tract infection, site not specified (principal); Z79.899 Other long term (current) drug therapy
CPT/HCPCS: 36415; 80053; 81001; 81025; 84702; 85025; 87086; 99283; 99284

== ENCOUNTER 2024-02-28 18:51 | Emergency (ER) | payer MEDICAID, SELFPAY ==
[2024-02-28 18:55] VITALS: BP 111/68; PULSE 73; RESP 16; TEMP 36.6; O2SAT 97; BMI 33.0
--- NOTE | 2024-02-28 18:58 | ED_ITS ---
HPI - General Adult General Chief complaint: Headache Stated complaint: migraine Time Seen by Provider: 02/28/24 21:06 Source: patient Mode of arrival: ambulatory Limitations: no limitations History of Present Illness HPI narrative: Patient comes to the emergency room complaining of a headache that started 2 days ago. Patient known to have migraine headaches. Patient complaining of mild photophobia, no neck pain, no vision changes. Patient took Tylenol prior to arrival without any relief. Related Data Home Medications ?Medication ?Instructions ?Recorded ?Confirmed acetaminophen 325 mg tablet 650 mg PO Q4H PRN pain 08/02/22 11/09/22 Previous Rx's ?Medication ?Instructions ?Recorded miconazole nitrate 2 % vaginal 1 appful vaginal BEDTIME 7 days 07/20/21 cream (Miconazole-7) #45 grams kjknagzdpk-stkgusthcqqph-qjhdixry 1 cap PO Q8H PRN headache #14 caps 03/31/22 50 mg-300 mg-40 mg capsule (Fioricet) ibuprofen 600 mg tablet 600 mg PO Q8H PRN pain #20 tabs 03/31/22 levothyroxine 175 mcg tablet 175 mcg PO DAILY #90 tabs 04/02/23 nitrofurantoin 100 mg PO Q12H 5 days #10 caps 07/12/23 monohydrate/macrocrystals 100 mg capsule (Macrobid) phenazopyridine 200 mg tablet 200 mg PO TID 6 doses #6 tabs 07/12/23 (Pyridium) sumatriptan succinate 50 mg tablet 50 mg PO Q2-4H PRN migraine 02/28/24 headache #8 tabs Allergies Allergy/AdvReac Type Severity Reaction Status Date / Time Iodinated Contrast Media Allergy Unknown HIVES Verified 02/28/24 18:57 [IV DYE, IODINE CONTAINING CONTRAST ] metronidazole [From Flagyl] Allergy Unknown Itching Verified 02/28/24 18:57 Review of Systems 2 Review of Systems: Constitutional : No Weight loss, No Fever, No Chills, No Night Sweats, No Fatigue, No Malaise ENT/Mouth : No Hearing loss, No Ear Pain, No Nasal Congestion, No Sinus Pain, No Hoarseness, No sore throat, No Rhinorrhea, No Swallowing Difficulty Eyes: No Eye Pain, No Swelling, No Redness, No Foreign Body, No Discharge, No Vision Changes Cardiovascular : No Chest Pain, No SOB, No Dyspnea on Exertion, No Orthopnea, No Edema, No Palpitations Respiratory : No Cough, No Sputum, No Wheezing, No Smoke Exposure, No Dyspnea Gastrointestinal : No Nausea, No Vomiting, No Diarrhea, No Constipation, No abdominal Pain, No Hematochezia, No Melena Genitourinary : no irregular bleeding, No Dysuria, No Urinary Frequency, No Hematuria, No Urinary Incontinence, No Urgency, No Flank Pain, No Urinary Flow Changes, No Hesitancy Musculoskeletal : No joint pain, No Myalgias, No Joint Swelling Skin : No Skin Lesions, No rash Neuro : No Weakness, No Numbness, No Paresthesias, No Loss of Consciousness, No Dizziness, complaining of a migraine headache Psych : No Anxiety/Panic, No Depression, No SI/HI/AH/VH, No Social Issues, Heme/Lymph: No Bruising, No Bleeding,No Lymphadenopathy Endocrine : No Polyuria, No Polydipsia, No Temperature Intolerance PMFSH Past Medical History Medical History Hypothyroid Hyperemesis Anemia Surgical History History of tubal ligation Family History Family History (Updated 11/09/22 @ 08:57 by LISA Jackson) Sister Family history of thyroid problem Social History Social History Household Members: Spouse and Children Housing: House Alcohol intake: unknown Patient Tobacco Use Status: Never used Tobacco Trauma History: none Agree to transfusion: Yes Advance Directives: No Advance Directives Information Provided: No Do you have a plan to hurt others: No Plan Physical Exam ED Vital Signs: Vital Signs - 24 hr 02/28/24 18:55 02/28/24 21:54 Temperature 97.9 F 97.9 F Pulse Rate 73 60 Respiratory Rate 16 18 Blood Pressure 111/68 109/66 Pulse Oximetry 97 97 Oxygen Delivery Method Room Air Room Air BMI result Body Mass Index 33.0 Const Other: Appearance: Alert. Oriented X3. No acute distress. Eyes: Pupils equal, round and reactive to light. Patient has photophobia ENT: Pharynx normal. Neck: Normal inspection. Neck supple. No lymph nodes noted. No crepitus CVS: Normal heart rate and rhythm. Pulses normal. Normal S1 and S2 Respiratory: No respiratory distress. Breath sounds normal. No Wheezing. No rales Abdomen: Soft and nontender. No rigidity. No distention. Skin: Skin warm and dry. Normal skin color. Normal skin turgor. Extremities: No lower extremity edema. No Lacerations. No Rash Neuro: Oriented X 3. No motor deficit. No sensory deficit. Moving all extremities. No slurred speech. CN 2 through 12 grossly intact, no neurological deficits Psych: calm, cooperative, normal affect Course Course Course Narrative: RME performed by Bianca Naik PA-C. Patient is a 28 year old assigned female at presenting to the emergency department with a headache. Patient states over the last 2 days she has had a headache that is worsening. Detailed physical exam and review of systems are deferred to the home care and home health aides teacher. Labs and swabs ordered. Patient placed back in the waiting room pending room availability and results. Medications Administered Discontinued Medications Generic Name Dose Route Start Last Admin Trade Name Oswaldoq PRN Reason Stop Dose Admin Diphenhydramine HCl 25 mg 02/28/24 21:47 02/28/24 22:20 Diphenhydramine Hcl 50 Mg/Ml Vial IVPUSH 02/28/24 21:48 25 mg ONCE ONE Administration Sodium Chloride 1,000 mls @ 999 mls/hr 02/28/24 21:47 02/28/24 22:21 Ns IVCONT 02/28/24 22:47 999 mls/hr .Q1H1M ONE Administration Ketorolac Tromethamine 30 mg 02/28/24 21:47 02/28/24 22:21 Ketorolac Tromethamine 30 Mg/Ml Vial IVPUSH 02/28/24 21:48 30 mg ONCE ONE Administration Metoclopramide HCl 10 mg 02/28/24 21:47 02/28/24 22:21 Metoclopramide Hcl 10 Mg/2 Ml Vial IVPUSH 02/28/24 21:48 10 mg ONCE ONE Administration Medical Decision Making Medical Decision Making [facility] Narrative: -my interpretation of labs, normal hematology and chemistry, serology negative for flu and COVID. -patient states the pain that she is feeling is familiar to her, patient has history of migraines. -Patient receiving IV fluids, Toradol, Reglan and Benadryl -overall patient feeling better. Patient ready for discharge Differential Diagnosis Differential Diagnoses: The differential diagnosis associated with the presentation includes (Patient headache, migraine headache) Lab Data MDM Lab Attestation statement: I reviewed the patient's lab results. 02/28/24 19:12 02/28/24 19:12 Labs: Lab Results 02/28/24 Range/Units 19:12 WBC 7.9 (4.8-10.8) X10*3/uL RBC 4.40 (4.20-5.50) X10*6/uL Hgb 12.1 (12.0-16.0) g/dl Hct 36.3 L (37.0-47.0) % MCV 82.5 (80.0-98.0) fL MCH 27.5 (27.0-33.0) pg MCHC 33.3 (31.0-35.0) g/dl RDW 12.4 (11.0-16.0) % Plt Count 277 (160-400) X10*3/uL MPV 10.8 (9.4-12.3) fL Immature Gran % (Auto) 0.1 (0.0-0.4) % Neut % (Auto) 44.2 L (45-73) % Lymph % (Auto) 42.7 H (20-40) % [place] % (Auto) 5.5 (2-11) % Eos % (Auto) 7.0 H (0-4) % Baso % (Auto) 0.5 (0-2) % Lymph # (Auto) 3.4 (1.2-4.9) X10*3/uL [place] # (Auto) 0.4 (0.1-1.2) X10*3/uL Eos # (Auto) 0.6 H (0.0-0.4) X10*3/uL Baso # (Auto) 0.0 (0.0-0.2) X10*3/uL Abs Immat Gran (auto) 0.01 (0.00-0.03) X10*3/uL Absolute Neuts (auto) 3.5 (2.0-8.3) x10*3/uL Absolute Nucleated RBC 0.000 (0.0-0.012) X10*3/uL Nucleated RBC % (auto) 0.0 (0.0-0.2) /100WBC Sodium 140 (135-145) mmol/L Potassium 3.8 (3.3-5.1) mmol/L Chloride 107 (96-108) mmol/L Carbon Dioxide 26 (22-29) mmol/L Anion Gap 11 L (12-20) BUN 11 (9-16) mg/dL Creatinine 0.82 (0.5-1.4) mg/dL Estim Creat Clear Calc 107.1 Estimated GFR > 60 Random Glucose 91 (60-115) mg/dL Calcium 9.1 (8.4-10.2) mg/dL Magnesium 2.0 (1.6-2.6) mg/dL Total Bilirubin 0.2 (0.0-1.0) mg/dL AST 23 (5-31) U/L ALT 30 (0-31) U/L Alkaline Phosphatase 92 (39-117) U/L Total Protein 7.1 (6.5-8.0) g/dL Albumin 3.9 (3.5-5.0) g/dL Beta HCG, Quant < 2 mIU/mL Influenza Type A (PCR) NEGATIVE (Negative) Influenza Type B (PCR) NEGATIVE (Negative) RSV RNA Qual (PCR) NEGATIVE (Negative) SARS-CoV-2 RNA (RT-PCR) NEGATIVE (Negative) S. pyogenes GrpA JANINE Negative (Negative) Critical Care Time Critical Care Time Critical Care Time: Yes Total Critical Care Time: 35 Attestation: I have personally provided critical care time. Time includes review of lab data, radiology results, discussion with consultants, and monitoring for potential decompensation. Intervention performed as documented. Discharge Plan Discharge Clinical Impression: Migraine Patient Disposition: Home, Self-Care Instructions: Migraine Headache (ED) Additional Instructions: Please follow-up with your primary care physician tomorrow. If you have any worsening or new symptoms, please return to the emergency room or call 911 Prescriptions: New sumatriptan succinate 50 mg tablet 50 mg PO Q2-4H PRN (Reason: migraine headache) Qty: 8 0RF Rx Instructions: do not exceed 4 doses per 24 hrs No Action levothyroxine 175 mcg tablet 175 mcg PO DAILY Qty: 90 1RF ibuprofen 600 mg tablet 600 mg PO Q8H PRN (Reason: pain) Qty: 20 0RF csftzfqibq-vggddsqxvnvyj-emak [Fioricet] 50-300-40 mg capsule 1 cap PO Q8H PRN (Reason: headache) Qty: 14 0RF phenazopyridine [Pyridium] 200 mg tablet 200 mg PO TID Qty: 6 0RF nitrofurantoin monohyd/m-cryst [Macrobid] 100 mg capsule 100 mg PO Q12H 5 Days Qty: 10 0RF Rx Instructions: must administer with a meal/food miconazole nitrate [Miconazole-7] 2 % cream 1 appful vaginal BEDTIME 7 Days Qty: 45 2RF acetaminophen 325 mg tablet 650 mg PO Q4H PRN (Reason: pain) Print Language: Turkish
[2024-02-28 19:27] LABS: Basophils Percent Auto 0.5 % (0-2); Eosinophils Absolute Auto 0.6 X10*3/uL (0.0-0.4); Hematocrit 36.3 % (37.0-47.0); Hemoglobin 12.1 g/dl (12.0-16.0); Imm Gran Abs Auto 0.01 X10*3/uL (0.00-0.03); Imm Gran Pct Auto 0.1 % (0.0-0.4); Lymphocytes Absolute Auto 3.4 X10*3/uL (1.2-4.9); Lymphocytes Percent Auto 42.7 % (20-40); MANUAL DIFF FLAG NO; Mean Corpuscular HGB Conc 33.3 g/dl (31.0-35.0); Mean Corpuscular Hemoglobin 27.5 pg (27.0-33.0); Mean Corpuscular Volume 82.5 fL (80.0-98.0); Mean Platelet Volume 10.8 fL (9.4-12.3); Monocytes Absolute Auto 0.4 X10*3/uL (0.1-1.2); Monocytes Percent Auto 5.5 % (2-11); Neutrophils Absolute Auto 3.5 x10*3/uL (2.0-8.3); Neutrophils Percent Auto 44.2 % (45-73); Platelet Count 277 X10*3/uL (160-400); Red Cell Distribution Width 12.4 % (11.0-16.0); White Blood Count 7.9 X10*3/uL (4.8-10.8)
[2024-02-28 19:31] LABS: IDNOW Serial# 08D9AD1C; Strep A Nucleic Acid Negative (Negative)
[2024-02-28 19:37] LABS: Alanine Aminotransferase 30 U/L (0-31); Albumin Level 3.9 g/dL (3.5-5.0); Alkaline Phosphatase 92 U/L (39-117); Anion Gap 11 (12-20); Aspartate Amino Transferase 23 U/L (5-31); Bilirubin Total 0.2 mg/dL (0.0-1.0); Blood Urea Nitrogen 11 mg/dL (9-16); Calcium 9.1 mg/dL (8.4-10.2); Carbon Dioxide 26 mmol/L (22-29); Chloride 107 mmol/L (96-108); Creatinine Clr Calc Pharmacy 107.1; Estimated Glomerular Filt Rate > 60; Glucose Random 91 mg/dL (60-115); Potassium 3.8 mmol/L (3.3-5.1); Sodium 140 mmol/L (135-145); Total Protein 7.1 g/dL (6.5-8.0)
[2024-02-28 19:46] LABS: HCG Quantitative < 2 mIU/mL
[2024-02-28 19:58] LABS: Influenza A PCR NEGATIVE (Negative); Influenza B PCR NEGATIVE (Negative); Resp Syncy Virus RNA Qual PCR NEGATIVE (Negative); SARS COV2 PCR INHOUSE NEGATIVE (Negative)
[2024-02-28 21:54] VITALS: BP 109/66; PULSE 60; RESP 18; TEMP 36.6; O2SAT 97
[2024-02-28] MEDS: diphenhydrAMINE HCL 50 MG/ML VIAL 25 MG IVPUSH (22:20)
[2024-02-28] MEDS: 0.9 % Sodium Chloride 1,000 ML 999 ML IVCONT (22:21)
[2024-02-28] MEDS: Ketorolac Tromethamine 30 MG/ML VIAL IVPUSH (22:21)
[2024-02-28] MEDS: Metoclopramide HCl 10 MG/2 ML VIAL IVPUSH (22:21)
[2024-02-28 23:57] VITALS: BP 118/72; PULSE 64; RESP 16; TEMP 36.7; O2SAT 96
== END 2024-02-28 23:59 | disposition home or self-care (01) ==
PROVIDERS: Physician Assistant Medical; Emergency Provider Emergency Medicine; PCP Nurse Practitioner Primary Care
DX: G43.909 Migraine, unspecified, not intractable, without status migrainosus (principal)
CPT/HCPCS: 0241U; 36415; 80053; 83735; 84702; 85025; 87651; 96361; 96374; 96375; 99283; 99284; J1200; J1885; J2765

== ENCOUNTER 2024-05-01 16:17 | Emergency (ER) | payer MEDICAID, SELFPAY ==
--- NOTE | 2024-05-01 16:20 | ECG_ITS ---
Test Reason : chest pain Blood Pressure : / mmHG Vent. Rate : 074 BPM Atrial Rate : 074 BPM P-R Int : 140 ms QRS Dur : 070 ms QT Int : 380 ms P-R-T Axes : 038 -04 014 degrees QTc Int : 421 ms Normal sinus rhythm Normal ECG When compared with ECG of 12-JAN-2022 18:03, No significant change was found Referred By: Generic ED Physician Electronically Signed By:AMADEO SANCHEZ MD
--- NOTE | 2024-05-01 16:25 | ED_ITS ---
HPI - Chest Pain General Chief Complaint: General Medical Stated Complaint: chest pain left side/Castaneda told her to come in Time Seen by Provider: 05/01/24 18:55 Related Data Home Medications ?Medication ?Instructions ?Recorded ?Confirmed acetaminophen 325 mg tablet 650 mg PO Q4H PRN pain 08/02/22 11/09/22 Previous Rx's ?Medication ?Instructions ?Recorded miconazole nitrate 2 % vaginal 1 appful vaginal BEDTIME 7 days 07/20/21 cream (Miconazole-7) #45 grams mtarwezbrt-xnzjcjtfefvxq-yrtrcvld 1 cap PO Q8H PRN headache #14 caps 03/31/22 50 mg-300 mg-40 mg capsule (Fioricet) ibuprofen 600 mg tablet 600 mg PO Q8H PRN pain #20 tabs 03/31/22 levothyroxine 175 mcg tablet 175 mcg PO DAILY #90 tabs 04/02/23 nitrofurantoin 100 mg PO Q12H 5 days #10 caps 07/12/23 monohydrate/macrocrystals 100 mg capsule (Macrobid) phenazopyridine 200 mg tablet 200 mg PO TID 6 doses #6 tabs 07/12/23 (Pyridium) sumatriptan succinate 50 mg tablet 50 mg PO Q2-4H PRN migraine 02/28/24 headache #8 tabs Allergies Allergy/AdvReac Type Severity Reaction Status Date / Time Iodinated Contrast Media Allergy Unknown HIVES Verified 05/01/24 16:27 [IV DYE, IODINE CONTAINING CONTRAST ] metronidazole [From Flagyl] Allergy Unknown Itching Verified 05/01/24 16:27 PMFSH Past Medical History Medical History Hypothyroid Hyperemesis Anemia Surgical History History of tubal ligation Family History Family History Sister Family history of thyroid problem Social History Social History Household Members: Spouse and Children Housing: House Alcohol intake: never Patient Tobacco Use Status: Never used Tobacco Smoked in Last 30 Days: No Trauma History: none Agree to transfusion: Yes Advance Directives: No Advance Directives Information Provided: No Patient : No Physical Exam 2 Vital Signs: Vital Signs: Last Vital Signs Temp 98.1 F 05/01/24 22:32 Pulse 83 05/01/24 22:32 Resp 16 05/01/24 22:32 BP 94/47 L 05/01/24 22:32 Pulse Ox 98 05/01/24 22:32 O2 Del Method Room Air 05/01/24 22:32 BMI result Body Mass Index 32.6 Course Course Course Narrative: This is a Rapid Medical Exam performed in triage by Bonnie Dooley PA-C. Full HPI, ROS and PE to be performed by primary ED provider. 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 Reports CP still present. denies SOB PE: ambulating w/steady gait, A&Ox3, talking in complete sentences Plan: EKG, labs, UA, Orthos Medications Administered Discontinued Medications Generic Name Dose Route Start Last Admin Trade Name Oswaldoq PRN Reason Stop Dose Admin Sodium Chloride 1,000 mls @ 999 mls/hr 05/01/24 19:45 05/01/24 21:30 Ns IV 05/01/24 20:45 Infused .Q1H1M NICKOLAS Infusion Ketorolac Tromethamine 15 mg 05/01/24 19:48 05/01/24 20:13 Ketorolac Tromethamine 15 Mg/Ml Vial IVPUSH 05/01/24 19:49 15 mg ONCE ONE Administration Metoclopramide HCl 10 mg 05/01/24 19:48 05/01/24 20:13 Metoclopramide Hcl 10 Mg/2 Ml Vial IVPUSH 05/01/24 19:49 10 mg ONCE ONE Administration Medical Decision Making Lab Data 05/01/24 16:59 05/01/24 16:59 Labs: Lab Results 05/01/24 05/01/24 05/01/24 Range/Units 16:59 19:52 19:53 WBC 10.9 H (4.8-10.8) X10*3/uL RBC 4.64 (4.20-5.50) X10*6/uL Hgb 12.8 (12.0-16.0) g/dl Hct 38.0 (37.0-47.0) % MCV 81.9 (80.0-98.0) fL MCH 27.6 (27.0-33.0) pg MCHC 33.7 (31.0-35.0) g/dl RDW 12.0 (11.0-16.0) % Plt Count 240 (160-400) X10*3/uL MPV 10.5 (9.4-12.3) fL Immature Gran % (Auto) 0.3 (0.0-0.4) % Neut % (Auto) 64.7 (45-73) % Lymph % (Auto) 24.1 (20-40) % [place] % (Auto) 6.4 (2-11) % Eos % (Auto) 4.2 H (0-4) % Baso % (Auto) 0.3 (0-2) % Lymph # (Auto) 2.6 (1.2-4.9) X10*3/uL [place] # (Auto) 0.7 (0.1-1.2) X10*3/uL Eos # (Auto) 0.5 H (0.0-0.4) X10*3/uL Baso # (Auto) 0.0 (0.0-0.2) X10*3/uL Abs Immat Gran (auto) 0.03 (0.00-0.03) X10*3/uL Absolute Neuts (auto) 7.0 (2.0-8.3) x10*3/uL Absolute Nucleated RBC 0.000 (0.0-0.012) X10*3/uL Nucleated RBC % (auto) 0.0 (0.0-0.2) /100WBC D-Dimer High Sensitivty NG/ML Sodium 140 (135-145) mmol/L Potassium 4.0 (3.3-5.1) mmol/L Chloride 105 (96-108) mmol/L Carbon Dioxide 25 (22-29) mmol/L Anion Gap 14 (12-20) BUN 16 (9-16) mg/dL Creatinine 0.80 (0.5-1.4) mg/dL Estim Creat Clear Calc 108.2 Estimated GFR > 60 Random Glucose 93 (60-115) mg/dL Calcium 9.6 (8.4-10.2) mg/dL Magnesium 1.9 (1.6-2.6) mg/dL Total Bilirubin 0.2 (0.0-1.0) mg/dL Direct Bilirubin < 0.2 (0.0-0.5) mg/dL AST 22 (5-31) U/L ALT 29 (0-31) U/L Alkaline Phosphatase 103 (39-117) U/L Troponin I High Sens 10.7 < 2.7 D (<3.5-17.0) ng/L Total Protein 7.3 (6.5-8.0) g/dL Albumin 4.0 (3.5-5.0) g/dL TSH (0.32-4.0) uIU/mL Free T4 (0.71-1.85) ng/dL Urine Color Yellow Urine Appearance Clear Urine pH 6.5 (5.0-9.0) Ur Specific [place] 1.015 (1.005-1.025) Urine Protein Negative (Neg-Trace) mg/dL Urine Glucose (UA) Negative (Negative) mg/dL Urine Ketones Negative (Negative) mg/dL Urine Blood Small (1+) H (Negative) Urine Nitrite Negative (Negative) Ur Leukocyte Esterase Small (1+) H (Negative) Urine RBC 0-2 (0-2) /HPF Urine WBC 0-5 (0-5) /HPF Ur Squamous Epith Cells 3-5 (0-2) /HPF Urine Bacteria None Seen (None Seen) Hyaline Casts 3-5 (0-2) /LPF Urine Test NEGATIVE (NEGATIVE) 05/01/24 Range/Units 20:11 WBC (4.8-10.8) X10*3/uL RBC (4.20-5.50) X10*6/uL Hgb (12.0-16.0) g/dl Hct (37.0-47.0) % MCV (80.0-98.0) fL MCH (27.0-33.0) pg MCHC (31.0-35.0) g/dl RDW (11.0-16.0) % Plt Count (160-400) X10*3/uL MPV (9.4-12.3) fL Immature Gran % (Auto) (0.0-0.4) % Neut % (Auto) (45-73) % Lymph % (Auto) (20-40) % [place] % (Auto) (2-11) % Eos % (Auto) (0-4) % Baso % (Auto) (0-2) % Lymph # (Auto) (1.2-4.9) X10*3/uL [place] # (Auto) (0.1-1.2) X10*3/uL Eos # (Auto) (0.0-0.4) X10*3/uL Baso # (Auto) (0.0-0.2) X10*3/uL Abs Immat Gran (auto) (0.00-0.03) X10*3/uL Absolute Neuts (auto) (2.0-8.3) x10*3/uL Absolute Nucleated RBC (0.0-0.012) X10*3/uL Nucleated RBC % (auto) (0.0-0.2) /100WBC D-Dimer High Sensitivty < 150 NG/ML Sodium (135-145) mmol/L Potassium (3.3-5.1) mmol/L Chloride (96-108) mmol/L Carbon Dioxide (22-29) mmol/L Anion Gap (12-20) BUN (9-16) mg/dL Creatinine (0.5-1.4) mg/dL Estim Creat Clear Calc Estimated GFR Random Glucose (60-115) mg/dL Calcium (8.4-10.2) mg/dL Magnesium (1.6-2.6) mg/dL Total Bilirubin (0.0-1.0) mg/dL Direct Bilirubin (0.0-0.5) mg/dL AST (5-31) U/L ALT (0-31) U/L Alkaline Phosphatase (39-117) U/L Troponin I High Sens (<3.5-17.0) ng/L Total Protein (6.5-8.0) g/dL Albumin (3.5-5.0) g/dL TSH 0.15 L (0.32-4.0) uIU/mL Free T4 1.06 (0.71-1.85) ng/dL Urine Color Urine Appearance Urine pH (5.0-9.0) Ur Specific [place] (1.005-1.025) Urine Protein (Neg-Trace) mg/dL Urine Glucose (UA) (Negative) mg/dL Urine Ketones (Negative) mg/dL Urine Blood (Negative) Urine Nitrite (Negative) Ur Leukocyte Esterase (Negative) Urine RBC (0-2) /HPF Urine WBC (0-5) /HPF Ur Squamous Epith Cells (0-2) /HPF Urine Bacteria (None Seen) Hyaline Casts (0-2) /LPF Urine Test (NEGATIVE) Discharge Plan Discharge Clinical Impression: Chest pain Patient Disposition: Home, Self-Care Instructions: Chest Pain (DC) Prescriptions: No Action levothyroxine 175 mcg tablet 175 mcg PO DAILY Qty: 90 1RF ibuprofen 600 mg tablet 600 mg PO Q8H PRN (Reason: pain) Qty: 20 0RF ikxpuvbonz-bcyskczmyejix-ephp [Fioricet] 50-300-40 mg capsule 1 cap PO Q8H PRN (Reason: headache) Qty: 14 0RF phenazopyridine [Pyridium] 200 mg tablet 200 mg PO TID Qty: 6 0RF nitrofurantoin monohyd/m-cryst [Macrobid] 100 mg capsule 100 mg PO Q12H 5 Days Qty: 10 0RF Rx Instructions: must administer with a meal/food sumatriptan succinate 50 mg tablet 50 mg PO Q2-4H PRN (Reason: migraine headache) Qty: 8 0RF Rx Instructions: do not exceed 4 doses per 24 hrs miconazole nitrate [Miconazole-7] 2 % cream 1 appful vaginal BEDTIME 7 Days Qty: 45 2RF acetaminophen 325 mg tablet 650 mg PO Q4H PRN (Reason: pain) Referrals: Cristina Castaneda NP [Primary Care Provider] - 05/06/24 Interventions: ED Discharge Assessment Last Done: 05/01/24 22:32 Discharge Date/Time: 05/01/24 22:33 Print Language: Finnish
[2024-05-01 16:26] VITALS: BP 115/67; PULSE 86; RESP 20; TEMP 36.3; O2SAT 98; BMI 32.6
[2024-05-01 17:08] LABS: MANUAL DIFF FLAG NO
[2024-05-01 17:09] LABS: Basophils Percent Auto 0.3 % (0-2); Eosinophils Absolute Auto 0.5 X10*3/uL (0.0-0.4); Eosinophils Percent Auto 4.2 % (0-4); Hemoglobin 12.8 g/dl (12.0-16.0); Imm Gran Abs Auto 0.03 X10*3/uL (0.00-0.03); Imm Gran Pct Auto 0.3 % (0.0-0.4); Lymphocytes Absolute Auto 2.6 X10*3/uL (1.2-4.9); Lymphocytes Percent Auto 24.1 % (20-40); Mean Corpuscular HGB Conc 33.7 g/dl (31.0-35.0); Mean Corpuscular Hemoglobin 27.6 pg (27.0-33.0); Mean Corpuscular Volume 81.9 fL (80.0-98.0); Mean Platelet Volume 10.5 fL (9.4-12.3); Monocytes Absolute Auto 0.7 X10*3/uL (0.1-1.2); Monocytes Percent Auto 6.4 % (2-11); Neutrophils Percent Auto 64.7 % (45-73); Platelet Count 240 X10*3/uL (160-400); Red Blood Count 4.64 X10*6/uL (4.20-5.50); White Blood Count 10.9 X10*3/uL (4.8-10.8)
[2024-05-01 17:32] LABS: Alanine Aminotransferase 29 U/L (0-31); Alkaline Phosphatase 103 U/L (39-117); Anion Gap 14 (12-20); Aspartate Amino Transferase 22 U/L (5-31); Bilirubin Direct < 0.2 mg/dL (0.0-0.5); Bilirubin Total 0.2 mg/dL (0.0-1.0); Blood Urea Nitrogen 16 mg/dL (9-16); Calcium 9.6 mg/dL (8.4-10.2); Carbon Dioxide 25 mmol/L (22-29); Chloride 105 mmol/L (96-108); Creatinine Clr Calc Pharmacy 108.2; Estimated Glomerular Filt Rate > 60; Glucose Random 93 mg/dL (60-115); Magnesium 1.9 mg/dL (1.6-2.6); Sodium 140 mmol/L (135-145); Total Protein 7.3 g/dL (6.5-8.0)
[2024-05-01 17:40] LABS: Troponin-I High Sensitivity 10.7 ng/L (<3.5-17.0)
[2024-05-01 18:48] VITALS: BP 104/64; PULSE 79; RESP 20; TEMP 36.3; O2SAT 98
--- NOTE | 2024-05-01 19:49 | ED.GENADULT ---
HPI - General Adult General Chief complaint: General Medical Stated complaint: chest pain left side/Castaneda told her to come in Time Seen by Provider: 05/01/24 18:55 History of Present Illness HPI narrative: Patient is a 29-year-old female presents today with having chest pain dizziness headache the chest pain is over the left side it goes to the arm. It is not associated with any diaphoresis. No fever no chills. Has nonspecific weakness. Also have a headache that is in the occipital area. Denies any travel history. Denies any history of blood clots. Denies any leg swelling. No history of IA. No family history of IA. Related Data Home Medications ?Medication ?Instructions ?Recorded ?Confirmed acetaminophen 325 mg tablet 650 mg PO Q4H PRN pain 08/02/22 11/09/22 Previous Rx's ?Medication ?Instructions ?Recorded miconazole nitrate 2 % vaginal 1 appful vaginal BEDTIME 7 days 07/20/21 cream (Miconazole-7) #45 grams tvbxxmshsc-wyqpmkuuuegjh-fqjtwwhj 1 cap PO Q8H PRN headache #14 caps 03/31/22 50 mg-300 mg-40 mg capsule (Fioricet) ibuprofen 600 mg tablet 600 mg PO Q8H PRN pain #20 tabs 03/31/22 levothyroxine 175 mcg tablet 175 mcg PO DAILY #90 tabs 04/02/23 nitrofurantoin 100 mg PO Q12H 5 days #10 caps 07/12/23 monohydrate/macrocrystals 100 mg capsule (Macrobid) phenazopyridine 200 mg tablet 200 mg PO TID 6 doses #6 tabs 07/12/23 (Pyridium) sumatriptan succinate 50 mg tablet 50 mg PO Q2-4H PRN migraine 02/28/24 headache #8 tabs Allergies Allergy/AdvReac Type Severity Reaction Status Date / Time Iodinated Contrast Media Allergy Unknown HIVES Verified 05/01/24 16:27 [IV DYE, IODINE CONTAINING CONTRAST ] metronidazole [From Flagyl] Allergy Unknown Itching Verified 05/01/24 16:27 Review of Systems Review of Systems: Positive chest pain Positive generalized malaise Yes all other systems are reviewed and are negative PMFSH Past Medical History Attestation statement: The following information was validated with the patient. Medical History Hypothyroid Hyperemesis Anemia Surgical History History of tubal ligation Family History Family History Sister Family history of thyroid problem Social History Social History Household Members: Spouse and Children Housing: House Alcohol intake: never Patient Tobacco Use Status: Never used Tobacco Smoked in Last 30 Days: No Trauma History: none Agree to transfusion: Yes Advance Directives: No Advance Directives Information Provided: No Patient : No Physical Exam ED Vital Signs: Vital Signs - 24 hr 05/01/24 16:26 05/01/24 18:48 Temperature 97.4 F 97.4 F Pulse Rate 86 79 Respiratory Rate 20 20 Blood Pressure 115/67 104/64 Pulse Oximetry 98 98 Oxygen Delivery Method Room Air Room Air BMI result Body Mass Index 32.6 Appearance: Alert. Oriented X3. No acute distress. Eyes: Pupils equal, round and reactive to light. ENT: Pharynx normal. Neck: Normal inspection. Neck supple. No lymph nodes noted. No crepitus CVS: Normal heart rate and rhythm. Pulses normal. Normal S1 and S2 Respiratory: No respiratory distress. Breath sounds normal. No Wheezing. No rales Abdomen: Soft and nontender. No rigidity. No distention. good BS x4 Skin: Skin warm and dry. Normal skin color. Normal skin turgor. Extremities: No lower extremity edema. Neurovascular intact to all extremities. No Lacerations. No Rash Neuro: Oriented X 3. No motor deficit. No sensory deficit. Moving all extermities. No slurred speech Medications Administered Discontinued Medications Generic Name Dose Route Start Last Admin Trade Name Freq PRN Reason Stop Dose Admin Sodium Chloride 1,000 mls @ 999 mls/hr 05/01/24 19:45 05/01/24 20:13 Ns IV 05/01/24 20:45 999 mls/hr .Q1H1M NICKOLAS Administration Ketorolac Tromethamine 15 mg 05/01/24 19:48 05/01/24 20:13 Ketorolac Tromethamine 15 Mg/Ml Vial IVPUSH 05/01/24 19:49 15 mg ONCE ONE Administration Metoclopramide HCl 10 mg 05/01/24 19:48 05/01/24 20:13 Metoclopramide Hcl 10 Mg/2 Ml Vial IVPUSH 05/01/24 19:49 10 mg ONCE ONE Administration Medical Decision Making Medical Decision Making [facility] Narrative: Patient's chest pain atypical. She is 29 years old with no significant cardiac risk. Two sets of enzymes are negative EKG is normal heart score is less than 3. Patient is D-dimer was negative there is no evidence for pulmonary emboli. Patient's free T4 is normal no evidence for hyper or hypothyroid white count is normal hemoglobin is normal at 12.8 there is no evidence for anemia. Patient's electrolytes are normal test is negative. No related issues. UA showed no signs of infection. Will discharge home. Close follow-up on an outpatient basis Differential Diagnosis Differential Diagnoses: The differential diagnosis associated with the presentation includes Urinary tract infection, related issues, PE, pneumonia, pneumothorax, ACS Admission/Observation Consideration of admission/observation: Escalation of care including admission/observation considered Lab Data [facility] Lab Attestation statement: I reviewed the patient's lab results. 05/01/24 16:59 05/01/24 16:59 Labs: Lab Results 05/01/24 05/01/24 05/01/24 Range/Units 16:59 19:52 19:53 WBC 10.9 H (4.8-10.8) X10*3/uL RBC 4.64 (4.20-5.50) X10*6/uL Hgb 12.8 (12.0-16.0) g/dl Hct 38.0 (37.0-47.0) % MCV 81.9 (80.0-98.0) fL MCH 27.6 (27.0-33.0) pg MCHC 33.7 (31.0-35.0) g/dl RDW 12.0 (11.0-16.0) % Plt Count 240 (160-400) X10*3/uL MPV 10.5 (9.4-12.3) fL Immature Gran % (Auto) 0.3 (0.0-0.4) % Neut % (Auto) 64.7 (45-73) % Lymph % (Auto) 24.1 (20-40) % [place] % (Auto) 6.4 (2-11) % Eos % (Auto) 4.2 H (0-4) % Baso % (Auto) 0.3 (0-2) % Lymph # (Auto) 2.6 (1.2-4.9) X10*3/uL [place] # (Auto) 0.7 (0.1-1.2) X10*3/uL Eos # (Auto) 0.5 H (0.0-0.4) X10*3/uL Baso # (Auto) 0.0 (0.0-0.2) X10*3/uL Abs Immat Gran (auto) 0.03 (0.00-0.03) X10*3/uL Absolute Neuts (auto) 7.0 (2.0-8.3) x10*3/uL Absolute Nucleated RBC 0.000 (0.0-0.012) X10*3/uL Nucleated RBC % (auto) 0.0 (0.0-0.2) /100WBC D-Dimer High Sensitivty NG/ML Sodium 140 (135-145) mmol/L Potassium 4.0 (3.3-5.1) mmol/L Chloride 105 (96-108) mmol/L Carbon Dioxide 25 (22-29) mmol/L Anion Gap 14 (12-20) BUN 16 (9-16) mg/dL Creatinine 0.80 (0.5-1.4) mg/dL Estim Creat Clear Calc 108.2 Estimated GFR > 60 Random Glucose 93 (60-115) mg/dL Calcium 9.6 (8.4-10.2) mg/dL Magnesium 1.9 (1.6-2.6) mg/dL Total Bilirubin 0.2 (0.0-1.0) mg/dL Direct Bilirubin < 0.2 (0.0-0.5) mg/dL AST 22 (5-31) U/L ALT 29 (0-31) U/L Alkaline Phosphatase 103 (39-117) U/L Troponin I High Sens 10.7 < 2.7 D (<3.5-17.0) ng/L Total Protein 7.3 (6.5-8.0) g/dL Albumin 4.0 (3.5-5.0) g/dL TSH (0.32-4.0) uIU/mL Free T4 (0.71-1.85) ng/dL Urine Color Yellow Urine Appearance Clear Urine pH 6.5 (5.0-9.0) Ur Specific [place] 1.015 (1.005-1.025) Urine Protein Negative (Neg-Trace) mg/dL Urine Glucose (UA) Negative (Negative) mg/dL Urine Ketones Negative (Negative) mg/dL Urine Blood Small (1+) H (Negative) Urine Nitrite Negative (Negative) Ur Leukocyte Esterase Small (1+) H (Negative) Urine RBC 0-2 (0-2) /HPF Urine WBC 0-5 (0-5) /HPF Ur Squamous Epith Cells 3-5 (0-2) /HPF Urine Bacteria None Seen (None Seen) Hyaline Casts 3-5 (0-2) /LPF Urine Test NEGATIVE (NEGATIVE) 05/01/24 Range/Units 20:11 WBC (4.8-10.8) X10*3/uL RBC (4.20-5.50) X10*6/uL Hgb (12.0-16.0) g/dl Hct (37.0-47.0) % MCV (80.0-98.0) fL MCH (27.0-33.0) pg MCHC (31.0-35.0) g/dl RDW (11.0-16.0) % Plt Count (160-400) X10*3/uL MPV (9.4-12.3) fL Immature Gran % (Auto) (0.0-0.4) % Neut % (Auto) (45-73) % Lymph % (Auto) (20-40) % [place] % (Auto) (2-11) % Eos % (Auto) (0-4) % Baso % (Auto) (0-2) % Lymph # (Auto) (1.2-4.9) X10*3/uL [place] # (Auto) (0.1-1.2) X10*3/uL Eos # (Auto) (0.0-0.4) X10*3/uL Baso # (Auto) (0.0-0.2) X10*3/uL Abs Immat Gran (auto) (0.00-0.03) X10*3/uL Absolute Neuts (auto) (2.0-8.3) x10*3/uL Absolute Nucleated RBC (0.0-0.012) X10*3/uL Nucleated RBC % (auto) (0.0-0.2) /100WBC D-Dimer High Sensitivty < 150 NG/ML Sodium (135-145) mmol/L Potassium (3.3-5.1) mmol/L Chloride (96-108) mmol/L Carbon Dioxide (22-29) mmol/L Anion Gap (12-20) BUN (9-16) mg/dL Creatinine (0.5-1.4) mg/dL Estim Creat Clear Calc Estimated GFR Random Glucose (60-115) mg/dL Calcium (8.4-10.2) mg/dL Magnesium (1.6-2.6) mg/dL Total Bilirubin (0.0-1.0) mg/dL Direct Bilirubin (0.0-0.5) mg/dL AST (5-31) U/L ALT (0-31) U/L Alkaline Phosphatase (39-117) U/L Troponin I High Sens (<3.5-17.0) ng/L Total Protein (6.5-8.0) g/dL Albumin (3.5-5.0) g/dL TSH 0.15 L (0.32-4.0) uIU/mL Free T4 1.06 (0.71-1.85) ng/dL Urine Color Urine Appearance Urine pH (5.0-9.0) Ur Specific [place] (1.005-1.025) Urine Protein (Neg-Trace) mg/dL Urine Glucose (UA) (Negative) mg/dL Urine Ketones (Negative) mg/dL Urine Blood (Negative) Urine Nitrite (Negative) Ur Leukocyte Esterase (Negative) Urine RBC (0-2) /HPF Urine WBC (0-5) /HPF Ur Squamous Epith Cells (0-2) /HPF Urine Bacteria (None Seen) Hyaline Casts (0-2) /LPF Urine Test (NEGATIVE) Independent Interpretation I performed an independent interpretation of an: EKG (My interpretation patient's EKG showed a sinus rhythm heart rate is 75 OH QRS QTC normal there is no acute ST segment elevation) and Plain X-Ray Discharge Plan Discharge Clinical Impression: Chest pain Patient Disposition: Home, Self-Care Instructions: Chest Pain (DC) Prescriptions: No Action levothyroxine 175 mcg tablet 175 mcg PO DAILY Qty: 90 1RF ibuprofen 600 mg tablet 600 mg PO Q8H PRN (Reason: pain) Qty: 20 0RF qcoyovtjcj-zkuhfpzxowxcs-oldy [Fioricet] 50-300-40 mg capsule 1 cap PO Q8H PRN (Reason: headache) Qty: 14 0RF phenazopyridine [Pyridium] 200 mg tablet 200 mg PO TID Qty: 6 0RF nitrofurantoin monohyd/m-cryst [Macrobid] 100 mg capsule 100 mg PO Q12H 5 Days Qty: 10 0RF Rx Instructions: must administer with a meal/food sumatriptan succinate 50 mg tablet 50 mg PO Q2-4H PRN (Reason: migraine headache) Qty: 8 0RF Rx Instructions: do not exceed 4 doses per 24 hrs miconazole nitrate [Miconazole-7] 2 % cream 1 appful vaginal BEDTIME 7 Days Qty: 45 2RF acetaminophen 325 mg tablet 650 mg PO Q4H PRN (Reason: pain) Referrals: Cristina Castaneda NP [Primary Care Provider] - 05/06/24 Print Language: New Zealander
[2024-05-01 20:01] LABS: Appearance Urine Clear; Color Urine Yellow; Glucose Urine UA Negative (Negative); Leukocyte Esterase Urine Small (1+) (Negative); Nitrite Urine Negative (Negative); PH 6.5 (5.0-9.0); Specific Gravity - Urine 1.015 (1.005-1.025); UMIC TRIGGER UACC YES; Urine Blood Small (1+) (Negative); Urine Ketones Negative (Negative); Urine Protein Negative (Neg-Trace)
[2024-05-01 20:03] LABS: UPreg QC Valid YES; Urine Pregnancy NEGATIVE (NEGATIVE)
--- NOTE | 2024-05-01 20:03 | MHC.EDTECH ---
per rn, orthostatic vitals do not need to be done at this time
[2024-05-01 20:13] LABS: Bacteria Urine None Seen (None Seen); RBC Urine 0-2 /HPF (0-2); UACC Culture Trigger YES; WBC Urine 0-5 /HPF (0-5)
[2024-05-01] MEDS: 0.9 % Sodium Chloride 1,000 ML 999 ML IV (20:13)
[2024-05-01] MEDS: Ketorolac Tromethamine 15 MG/ML VIAL IVPUSH (20:13)
[2024-05-01] MEDS: Metoclopramide HCl 10 MG/2 ML VIAL IVPUSH (20:13)
[2024-05-01 20:22] LABS: Troponin-I High Sensitivity < 2.7 ng/L (<3.5-17.0)
[2024-05-01 21:02] LABS: TSH reflex Free T4 0.15 uIU/mL (0.32-4.0)
[2024-05-01 21:03] LABS: D Dimer High Sensitivity < 150 NG/ML
[2024-05-01 21:32] LABS: Free T4 (Free Thyroxine) 1.06 ng/dL (0.71-1.85)
[2024-05-01 22:19] VITALS: BP 94/47; PULSE 83; RESP 16; TEMP 36.7; O2SAT 98
[2024-05-01 22:32] VITALS: BP 94/47; PULSE 83; RESP 16; TEMP 36.7; O2SAT 98
== END 2024-05-01 22:33 | disposition home or self-care (01) ==
PROVIDERS: Physician Assistant; Emergency Provider Emergency Medicine Emergency Medical Services; PCP Nurse Practitioner Primary Care
DX: R07.9 Chest pain, unspecified (principal); R03.1 Nonspecific low blood-pressure reading; E03.9 Hypothyroidism, unspecified; D64.9 Anemia, unspecified; R51.9 Headache, unspecified; R42 Dizziness and giddiness; R11.0 Nausea
CPT/HCPCS: 36415; 80048; 80076; 81001; 81003; 81025; 83735; 84439; 84443; 84484; 85025; 85379; 87086; 93005; 96361; 96374; 96375; 99284; 99285; J1885; J2765

== ENCOUNTER → 2024-05-01 16:20 | Outpatient (BNV) | payer MEDICAID, SELFPAY | PROVIDERS: Emergency Provider Emergency Medicine Emergency Medical Services; PCP Nurse Practitioner Primary Care; Visit Provider Internal Medicine Cardiovascular Disease | DX: R07.9 Chest pain, unspecified (principal) | CPT/HCPCS: 93010 ==

== ENCOUNTER → 2025-01-19 07:57 | Outpatient (REF) | payer MEDICAID, SELFPAY ==
--- OUTSIDE RECORDS SUMMARY | 2025-01-19 08:02 | XMS_ITS | Encounter Summary ---
Author Organization [employer] Address [address] [place] [address] Care Team Providers Care Tomato Grader Name Role Phone Cristina Castaneda Primary Care Provider [phone] Encounter Details Date Type Department Care Team (Late st Contact Info) Description 01/14/2025 Telephone [facility] [address], [place] [id number] Cristina Castaneda ANP [address] [place] [address] Social History Tobacco Use Types Packs/Day Years Used Date Smoking Tobacco: Never Smokeless Tobacco: Never Alcohol Use Standard Drinks/Week Comments Not Currently 0 (1 standard drink = 0.6 oz pur e alcohol) Depression Answer Date Recorded Patient Health Questionnaire-9 Score 6 05/29/2024 Patient Health Questionnaire-9 Score 6 05/29/2024 Last PHQ-9: Questionnaire Data Not on file 0 05/29/2024 Housing Stability Answer Date Recorded What is your housing situation today? I have michael lopez 08/01/[address] you li ve. Do you have problems with any of the following? None of the above 08/01/2023 Food Insecurity Answer Date Recorded Within the past 12 months, y ou worried that your food would run out before you got money to buy more: Never True 08/01/2023 Within the past 12 months,th e food you bought just didn't last and you didn't have enough money to get more: Never True Transportation Answer Date Recorded In the past 12 months, has l ack of transportation kept you from medical appts, meetings, work or from getting things needed for daily living? No 08/01/2023 Utilities Answer Date Recorded In the past 12 months, has t he electric, gas, oil or water company threatened to shut off services in your home? No 08/01/2023 Depression Answer Date Recorded Patient Health Questionnaire-2 Score 1 05/29/2024 Comments Unknown Sex and Gender Information Value Date Recorded Sex Assigned at Female 08/14/2022 10:18 AM EDT Legal Sex Female 10:18 AM EDT Gender Identity Female 08/14/2022 10:18 AM EDT Sexual Orientation Straight 08/14/2022 10 :18 AM EDT documented as of this encounter Miscellaneous Notes * Telephone Encounter - Cass Carter RN - 01/14/2025 10:01 AM EDT TC placed to pt regarding message below per Cristina Castaneda PET TECHNOLOGIST. No answer. Voice message left for pt to return call to [facility]. Pt to F/U as needed. ----- Message from Cristina Castaneda sent at 01/12/2025 5:38 PM EDT ----- Please let patient know I have ordered a Holter monitor which is a little machine that will stick to her chest for 2 days to monitor heart rhythm. Someone from the hospital will hopefully call her toschedule set up. documented in this encounter Plan of Treatment Upcoming Encounters Date Type Department Care Team (Late st Contact Info) Description 03/04/2025 2:00 PM EDT Office Visit [facility] [address] [place] [address] Cristina Castaneda ANP [address] [place] [address] documented as of this encounter Visit Diagnoses Not on filedocumented in this encounter Additional Health Concerns Assessment Noted Time PHQ-9 Depression Total Score: 6 05/29/20 24 2:06 PM EDT documented as of this encounter Care Teams Tomato Grader Relationship Specialty Start Date End Date Cristina Castaneda ANP [address] [place] [address] PCP - General Family Medicine 04/01/20 documented as of this encounter
--- OUTSIDE RECORDS SUMMARY | 2025-01-19 08:02 | XMS_ITS | Clinical Summary ---
Author Organization [employer] [facility] Address [address] [place] [address] Care Team Providers Care Automobile Dealer Name Role Phone Unavailable Primary Care Provider Unavailabl e Social History Tobacco Use Types Packs/Day Years Used Date Smoking Tobacco: Never Assessed Comments Unknown Sex and Gender Information Value Date Recorded Sex Assigned at Not on file Legal Sex Female 2:48 PM EDT Gender Identity Not on file Sexual Orientation Not on file Plan of Treatment Health Maintenance Due Date Last Done Comments Pneumococcal Vaccine: Pediatrics (0 to 5 Years) and At-Risk Patients (6 to 64 Years) (1 of 2 - PCV) 2012 Cervical Cancer Screening: Pap Smear 2014 COVID-19 Vaccine ( season) 2024 11/01/2021, 03/28/2021, 02/15/2021 Influenza Vaccine (#1) 2024 , 07/20/2011, 07/29/2009, Additional history exists Depression Screening 08/10/2024 HIV Screening 08/10/2024 Hepatitis C Screening 08/10/2024 Social Influencers of Health Screening 08/10/2024 DTaP,Tdap,and Td Vaccines (10 - Td or Tdap) 09/23/2031 09/23/2021, 02/08/2018, 08/18/2016, Additional history exists Hepatitis B Vaccines Completed 01/27/1994, 1993, 1993 IPV Vaccines Completed 12/03/1997, 11/15, 1993, Additional history exists Varicella Vaccines Completed 08/21/2006, 05/24/2006 Meningococcal ACWY Vaccine Aged Out 08/16/2007 N o longer eligible based on patient's age to complete this topic HPV Vaccines Completed 08/31/2008, 10/17/2006 MMR Vaccines Completed 10/26/2016, 11/15, 05/27/1994 HIB Vaccines Aged Out No longer eligi ble based on patient's age to complete this topic Hepatitis A Vaccines Aged Out No long er eligible based on patient's age to complete this topic Meningococcal B Vacine Aged Out No lo nger eligible based on patient's age to complete this topic RSV Immunization Patients Under 20 months Aged Out No longer eligible based on patient's age to complete this topic
--- OUTSIDE RECORDS SUMMARY | 2025-01-19 08:02 | XMS_ITS | Clinical Summary ---
Author Organization [employer] Address [address] [place] [address] 7 [place] [address] Care Team Providers Care Ad Copy Writer Name Role Phone Cristina Castaneda DEVAUGHN Primary Care Provider [phone] Allergies Active Allergy Reactions Criticality Noted Date Comments Iodinated Contrast Media 12/19/2022 Medications * This document contains information received from the source organization and may not represent a complete record from that organization. fluticasone (Flonase) 50 MCG/ACT nasal sprayIndications :Non-seasonal allergic rhinitis due to pollen Administer 1 spray into each nostril in the morning. 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 90 tablet 1 4 Active triamcinolone (Kenalog) 0.1 % creamIndications :Eczema, unspecified type Apply topically if needed in the morning and at bedtime for rash. 45 g 1 4 Active albuterol (Ventolin HFA) 108 (90 Base) MCG/ACT inhaler INHALE 2 PUFFS EVERY 6 HOURS IF NEEDED FOR WHEEZING. 18 g 4 Active hydrocortisone 0.5 % creamIndications :Eczema, unspecified type APPLY TWICE DAILY TO EYELIDS FOR 5 TO 7 DAYS 15 g 4 Active hydrOXYzine pamoate (Vistaril) 25 MG capsuleIndicatio ns:Difficulty sleeping TAKE 1 CAPSULE BY MOUTH AT BEDTIME IF NEEDED FOR INSOMNIA 90 capsule Active Active Problems Problem Noted Date Diagnosed Date Adjustment disorder with anxiety 05/23/2024 Acquired hypothyroidism 12/19/2022 Overview (02/21/2023): Stable on 175mcg synthroid Anemia 12/19/2022 Hyperemesis 12/19/2022 Hypoglycemia 12/19/2022 Migraine 12/19/2022 Sciatica, unspecified side 12/19/2022 Abdominal pain 05/29/2011 Developmental academic disorder 06/17/2007 Encounters Date Type Department Care Team Description 01/15/2025 Patient Outreach [facility] [address] [place] [phone] Cristina Castaneda ANP Care Coordination (CM/CHW outreach) 01/14/[address] [address] Cristina Castaneda ANP 01/14/[address] [address] Cristina Castaneda ANP 01/12/2025 Orders Only [facility] [address] [place] [phone] Cristina Castaneda ANP Palpitations (Primary Dx) 01/06/[address] [address] Cristina Castaneda ANP Care Coordination (CM/CHW outreach) 12/26/[address] [address] Cristina Castaneda ANP Care Coordination (CM/CHW outreach) 12/26/2024 Population Health Risk [facility] [address] [place] [phone] Provider, Population Health Generic 12/26/2024 Telephone [facility] [address] [place] [phone] Cristina Castaneda ANP Care Management ([facility]- chart review) 12/24/[address] [address] Cristina Castaneda ANP Nurse Triage 12/19/2024 Refill [facility] [address] [place] [phone] Cristina Castaneda ANP Difficulty sleeping 12/18/[address] [address] Cristina Castaneda ANP Appointment Request (I left a Vm to the pt to call back to schedule an appt for physical.) 10/29/[address] [phone] Cristina Castaneda ANP from Last 3 Months Immunizations Name Administration Dates Next Due DTaP 12/03/1997, 4,1993,09/19,1993 HPV, Quadrivalent 08/31/2008,10/17/2006,10/16/19 07 Hep B, Adolescent or Pediatric 01/27/1994,1992,1993 Hib (HbOC) 09/06/1994, 4,1993,11/30,1993,1993,1993 IPV 12/03/1997, 4,1993,07/19 Influenza injectable quadriv alent preservative free 08/21/2023,12/19/2022,09/23/2021 Influenza, IIV3, injectable 09/23/2021,1 ,07/29/2009,08/31 Influenza, Split (incl. silvana fied surface antigen) 06/27/2013,07/08/2012 MMR 10/26/2016,12/03/1997,05/27/1994 Meningococcal ACWY, unspecified 08/16/2007 Meningococcal MCV4P ACYW-135 08/16/2007 Moderna Covid-19 Vaccine 12+ 03/28/2021,02/16/20 21 Moderna Covid-19 Vaccine 6+ Bivalent 12/19/2022 TD (adult), 2 Lf tetanus tox oid, preservative free, adsorbed 02/08/2018 Td (adult), unspecified 02/08/2018 Tdap 09/23/2021,08/18/2016,02/21/2006 Varicella 08/21/2006,05/24/2006 Social History Tobacco Use Types Packs/Day Years Used Date Smoking Tobacco: Never Smokeless Tobacco: Never Tobacco Cessation:Counseling Given: Not Answered Alcohol Use Standard Drinks/Week Comments Not Currently [...] Orientation Straight 08/14/2022 10 :18 AM EDT Last Filed Vital Signs Vital Sign Reading Time Taken Comments Blood Pressure 124/71 05/23/2024 1:07 PM EDT Pulse 74 05/23/2024 1:07 PM EDT Temperature 36.8 ??C (98.2 ??F) 05/23/2024 1:07 PM ED T Respiratory Rate 18 05/23/2024 1:07 PM EDT Oxygen Saturation 98% 05/23/2024 1:07 PM EDT Inhaled Oxygen Concentration - - Weight 92.4 kg (203 lb 12.8 oz) 05/23/2024 1:07 PM EDT Height 162.6 cm (5' 4 ) 05/23/2024 1:07 PM EDT Body Mass Index 34.98 05/23/2024 1:07 PM EDT Plan of Treatment Upcoming Encounters Date Type Department Care Team (Late st Contact Info) Description 03/04/2025 2:00 PM EDT Office Visit [facility] [address] [place], [place] [phone] Cristina Castaneda ANP [address] [place], [place] [phone] Health Maintenance Due Date Last Done Comments Alcohol/Substance Use Screening 2005 Family Planning (PISQ) 2008 Pneumococcal Vaccine: Pediatrics (0 to 5 Years) and At-Risk Patients (6 to 49) Years) (1 of 2 - PCV) 2012 SDOH Screening 12/20/2023 12/19/2022 Cervical Cancer Screening 05/10/2024 HPV/Cotest 05/10/2024 Pap Smear 05/10/2024 05/10/2021 COVID-19 Vaccine ( season) 2024 12/19/2022, 11/01/2021, 03/28/2021, Additional history exists Influenza Vaccine (#1) 2024 , 12/19/2022, 09/23/2021, Additional history exists Tobacco Screening 05/23/2025 05/23/2024 Depression Screening 05/29/2025 05/29/2024, 05/29/20 24 DTaP/Tdap/Td Vaccines (11 - Td or Tdap) 09/23/2031 09/23/2021, 02/08/2018, 02/08/2018, Additional history exists Zoster Vaccines (1 of 2) 2043 RSV Patients and Patients Aged 60 years or older (1 - 1-dose 75+ series) 2068 Hepatitis B Vaccines Completed 01/27/1994, 1993, 1993 HIB Vaccines Completed 09/06/1994, 08/16, 1993, Additional history exists IPV Vaccines Completed 12/03/1997, 11/15, 1993, Additional history exists Meningococcal Vaccine Aged Out 08/16/2007, 007 No longer eligible based on patient's age to complete this topic HPV Vaccines Completed 08/31/2008, 12/2006, 10/16/2006 HIV Screening Completed 08/17/2021 Hepatitis C Screening Completed 08/17/2021 Hepatitis A Vaccines Aged Out No long er eligible based on patient's age to complete this topic RSV under 20 months Aged Out No longe r eligible based on patient's age to complete this topic Rotavirus Vaccines Aged Out No longer eligible based on patient's age to complete this topic Procedures Procedure Name Priority Date/Time Associated Diagnosis Comments T4, FREE Routine 10/29/2024 10:03 AM EST TSH W/REFLEX TO FT4 Routine 10/29/2024 1 0:03 AM EST 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 [facility] HISTORICAL HIV AB/AG Routine 08/17/2021 10:45 AM EDT HM PAP/HPV Routine 05/10/2021 from Last 3 Months or Most Recently Relevant to Health Maintenance Results * (ABNORMAL) TSH W/Reflex to FT4 (10/29/2024 10:03 AM EST) TSH reflex Free T4 4.25(H) 0.32 - 4.0 uIU/mL [facility] Blood Venous blood specimen / Unknown 10/29/2024 10:03 AM EST 10/29/2024 10:03 AM EST Cristina CANTOR LAB BLOOD ORDERABLES Final Resul t [facility] [address] [place] [phone] * T4, Free (10/29/2024 10:03 AM EST) Free T4 (Free Thyroxine) 0.91 0.71 - 1.85 ng/dL [facility] 10/29/2024 10:0 3 AM EST 10/29/2024 10:03 AM EST [facility] BLOOD ORDERABLES Final Resul t Performing Organization Address City/[facility] [address]/ZIP Co de Phone Number [facility] [address] [place] [address] [phone] * HIV AB/AG (08/17/2021 10:45 AM EDT) [facility] HIV AB/AG Nonreactive Nonreactive [facility] Comment: HIV-1 p24 Ag and/or HIV-1/HIV-2 Ab not detected. ?? A test result that is nonreactive does not exclude the possibility of exposure to or infection with HIV-1 and/or HIV-2. Nonreactive results in this assay for individuals with prior exposure to HIV-1 and/or HIV-2 may be due to antigen and antibody levels that are below the limit of detection of this assay. ?? The [facility] [employer] HIV Ag/Ab Combo assay result and supplemental assay results should be interpreted in conjunction with the patient's clinical presentation, history and other laboratory results. ??If the results are inconsistent with clinical evidence, additional testing is suggested to confirm the result. Hepatitis B Surface Antigen Negative Negative [facility] Hepatitis C Antibody Nonreactive Nonreactive [facility] Comment: Antibodies to HCV not detected; does not exclude early acute HCV infection. 08/17/2021 10:4 5 AM EDT Cara PelletierStokes HISTORICAL/NON ORDERABLE LABS Fi nal Result [facility] [address] [place] [address], * Hm Pap Smear (05/10/2021) Pathologist [facility] Pap Negative for intraephithelial lesion or malignancy Negative for intraephithelial lesion or malignancy, Other us Historical Provider HEALTH MAINTENANCE Final Result from Last 3 Months or Most Recently Relevant to Health Maintenance Insurance [address] [place] [id number] [place] [address] [address] [place] [phone] [place] [id number] [address] [place] [phone] Care Teams Ad Copy Writer Relationship Specialty Start Date End Date Cristina Castaneda ANP [address] [place] [address] PCP - General Family Medicine 04/01/20
--- OUTSIDE RECORDS SUMMARY | 2025-01-19 08:02 | XMS_ITS | Encounter Summary ---
Author Organization [employer] Address [address] [place] [address] [address] [place] [address] Care Team Providers Care Data Control Assistant Name Role Phone Crsitina Castaneda Primary Care Provider [phone] Encounter Details Date Type Department Care Team (Late st Contact Info) Description 07/18/2023 Abstract [facility] [address] [place] [address] [phone] Chantell Ortiz Social History Tobacco Use Types Packs/Day Years Used Date Smoking Tobacco: Never Smokeless Tobacco: Never Alcohol Use Standard Drinks/Week Comments Not Currently 0 (1 standard drink = 0.6 oz pur e alcohol) Depression Answer Date Recorded Patient Health Questionnaire-2 Score 0 12/19/2022 Comments Unknown Sex and Gender Information Value Date Recorded Sex Assigned at Female 08/14/2022 10:18 AM EDT Legal Sex Female 10:18 AM EDT Gender Identity Female 08/14/2022 10:18 AM EDT Sexual Orientation Straight 08/14/2022 10 :18 AM EDT documented as of this encounter Plan of Treatment Upcoming Encounters Date Type Department Care Team (Late st Contact Info) Description 03/04/2025 2:00 PM EDT Office Visit [facility] [address] [place] [address] [phone] Cristina Castaneda ANP [address] [place], [place] [phone] documented as of this encounter Procedures Procedure Name Priority Date/Time Associated Diagnosis Comments PAP/HPV Routine 05/10/2021 documented in this encounter Results * Hm Pap Smear (05/10/2021) Pap Negative for intraephithelial lesion or malignancy Negative for intraephithelial lesion or malignancy, Other us Historical Provider HEALTH MAINTENANCE Final Result documented in this encounter Visit Diagnoses Not on filedocumented in this encounter Care Teams Data Control Assistant Relationship Specialty Start Date End Date Cristina Castaneda ANP [address] [place] [phone] PCP - General Family Medicine 04/01/20 documented as of this encounter
--- OUTSIDE RECORDS SUMMARY | 2025-01-19 08:02 | XMS_ITS | Encounter Summary ---
Author Organization [employer] Address [address] [facility] 7 [place] [address] Care Team Providers Care Direct Care Provider Name Role Phone Cristina Castaneda Primary Care Provider [phone] Reason for Visit * Reason Comments Care Coordination CM/CHW outreach Encounter Details Date Type Department Care Team (Latest Contact Info) Description 01/15/2025 Patient Outreach [facility] [address] [place], [place] [phone] Cristina Castaneda ANP [address] [place] [address] Care Coordination (CM/CHW outreach) Social History Tobacco Use Types Packs/Day Years [...] AM EDT documented as of this encounter Progress Notes * Chapis Ho - 01/15/2025 9:23 AM EDT CHW Chapis Ho, placed outbound call to patient in regards to help with SDOH services and to introduce Adult Complex Care Program CHW LVM introducing herself from [facility] CM Department with CHW's name, department and direct contact number requesting call back. Will re-attempt to contact within 5 days. and address not confirmed. documented in this encounter Plan of Treatment Upcoming Encounters Date Type Department Care Team (Late st Contact Info) Description 03/04/2025 2:00 PM EDT Office Visit [facility] [address] [place] [address] Cristina Castaneda ANP [address] [place] [address] documented as of this encounter Visit Diagnoses Not on filedocumented in this encounter Additional Health Concerns Assessment Noted Time PHQ-9 Depression Total Score: 6 05/29/20 24 2:06 PM EDT documented as of this encounter Care Teams Direct Care Provider Relationship Specialty Start Date End Date Cristina Castaneda ANP [address] [place] [address] PCP - General Family Medicine 04/01/20 documented as of this encounter
--- OUTSIDE RECORDS SUMMARY | 2025-01-19 08:02 | XMS_ITS | Encounter Summary ---
Author Organization [employer] Address [address] [facility] [address] [place] [address] Care Team Providers Care Radio Dispatcher Name Role Phone Cristina Castaneda Primary Care Provider [phone] Encounter Details Date Type Department Care Team (Late st Contact Info) Description 01/14/2025 Telephone [facility] [address] [place], [place] [phone] Cristina Castaneda ANP [address] [place] [address] Social History Tobacco Use Types Packs/Day Years [...] encounter Miscellaneous Notes * Telephone Encounter - Davina Coffey RN - 01/14/2025 8:55 AM EDT TC x 2 placed to pt to inform of below PCP message. No answer, call immediately goes to voicemail. LVM to call office back and ask to speak to the [facility] team nurses. ----- Message from Cristina Castaneda sent at [...] Description 03/04/2025 2:00 PM EDT Office Visit [facility] [address] [place] [address] Cristina Castaneda ANP [address] [place] [address] documented as of this encounter Visit Diagnoses Not on filedocumented in this encounter Additional Health Concerns Assessment Noted Time PHQ-9 Depression Total Score: 6 05/29/20 24 2:06 PM EDT documented as of this encounter Care Teams Radio Dispatcher Relationship Specialty Start Date End Date Cristina Castaneda ANP [address] [place] [address] PCP - General Family Medicine 04/01/20 documented as of this encounter
== END ==
LOC: HO.CARD 07:57
PROVIDERS: PCP Nurse Practitioner Primary Care; Visit Provider Nurse Practitioner Primary Care
DX: R00.2 Palpitations (principal)
CPT/HCPCS: 93225